=== PATIENT | female | born 1970 | race Caucasian/White ===

== ENCOUNTER 2017-03-12 15:45 | Inpatient (IN) | payer OTHER ==
[~2017-03-12] VITALS: Ht 167.6 cm; Wt 87.1 kg
[~2017-03-12 15:45] MED LIST: ADVIL100 M2 PO; AMITRIPTYLINE H25 M2 PO; ASPIRIN325; DESIPRAMINE 2525 M1 PO; ELIQUIS5 MG PO; KEFLEX500 MG PO; LORTAB 5-325 M1 EACH PO; NORCO 5-325 TA1 EACH PO; NORVASC5 MG PO; OSCIMIN0.125 MG PO; PAROXETINE ER25 MG PO; PAROXETINE HCL25 MG PO; PAXIL CR25 MG; PAXIL10 MG PO; PERCOCET 10-321 EACH PO; PERCOCET 5-3251 EACH PO; PERCOCET 7.5-31 EACH PO; PHENERGAN 25 MG25 M1 PO; ZOFRAN 4 MG ORAL4 M1 DIS; ZOFRAN ODT4 MG DISSOLVE
[2017-03-12 15:47] VITALS: BP 100/78
[2017-03-12 16:25] LABS: ABSOLUTE NEUTROPHILS 1.9 thou/uL (1.4-8.2); BASOPHILS 0.6 % (0.0-2.0); EOSINOPHILS 1.9 % (0.0-3.0); HEMATOCRIT 31.1 % (37.0-47.0); HEMOGLOBIN 9.6 gm/dL (12.0-15.0); LYMPHOCYTES 25.9 % (24.0-44.0); MCH 23.3 pg (26.0-34.0); MCHC 30.8 g/dL (28.0-37.0); MCV 75.8 fL (80.0-100.0); MONOCYTES 10.3 % (1.0-8.0); PLATELET COUNT 243 thou/uL (150-400); POLYS 61.3 % (36.0-66.0); RDW 18.6 % (10.5-14.5); WBC 3.1 thou/uL (4.0-11.0)
[2017-03-12 16:29] LABS: MANUAL DIFF NO
[2017-03-12 16:34] LABS: CREATININE 0.7 mg/dL (0.6-1.0)
[2017-03-12 16:40] LABS: ALBUMIN 3.6 g/dL (3.4-5.0); DIRECT BILIRUBIN 0.2 mg/dL (<0.1-0.3); TOTAL BILIRUBIN 0.6 mg/dL (<0.1-1.0); TOTAL PROTEIN 7.5 g/dL (6.4-8.2)
[2017-03-12 16:41] LABS: POTASSIUM 2.9 mmol/L (3.5-5.1)
[2017-03-12 17:37] LABS: URINE BILIRUBIN NEGATIVE (Negative); URINE BLOOD NEGATIVE (Negative); URINE COLOR YELLOW; URINE GLUCOSE-RANDOM* NEGATIVE (Negative); URINE KETONES NEGATIVE (Negative); URINE NITRITE NEGATIVE (Negative); URINE PROTEIN (DIPSTICK) NEGATIVE (Negative); URINE SPECIFIC GRAVITY <= 1.005 (1.003-1.035); URINE UROBILINOGEN 0.2 E.U./dl (0.2-1.0)
[2017-03-12 17:43] LABS: CASTS None Seen /LPF (None Seen); CRYSTALS None Seen /LPF (None Seen); SQUAMOUS 4-10 Moderate /LPF (0-3); URINE RBC None Seen /HPF (0-2); URINE WBC 6-15 Few /HPF (0-5)
[2017-03-12 19:49] VITALS: BP 144/85
[2017-03-12 20:30] VITALS: BP 146/79
[2017-03-13 04:00] VITALS: BP 129/82
[2017-03-13 06:27] LABS: HEMATOCRIT 25.2 % (37.0-47.0); HEMOGLOBIN 7.8 gm/dL (12.0-15.0); MCH 23.7 pg (26.0-34.0); MCHC 30.9 g/dL (28.0-37.0); MCV 76.8 fL (80.0-100.0); RBC 3.29 mil/uL (4.20-5.00); RDW 18.8 % (10.5-14.5); WBC 3.1 thou/uL (4.0-11.0)
[2017-03-13 06:46] LABS: ALBUMIN 2.7 g/dL (3.4-5.0); CALCIUM 7.9 mg/dL (8.5-10.1); CREATININE 0.6 mg/dL (0.6-1.0); TOTAL BILIRUBIN 0.4 mg/dL (<0.1-1.0); TOTAL PROTEIN 5.7 g/dL (6.4-8.2)
[2017-03-13 06:49] LABS: POTASSIUM 2.9 mmol/L (3.5-5.1)
[2017-03-13 07:20] VITALS: BP 116/78
[2017-03-13 15:20] VITALS: BP 125/81
[2017-03-13 20:00] VITALS: BP 115/69
[2017-03-14 04:00] VITALS: BP 116/72
[2017-03-14 07:28] VITALS: BP 103/64
[2017-03-14 15:16] LABS: ABSOLUTE NEUTROPHILS 1.6 thou/uL (1.4-8.2); BASOPHILS 0.8 % (0.0-2.0); EOSINOPHILS 6.1 % (0.0-3.0); HEMATOCRIT 30.3 % (37.0-47.0); HEMOGLOBIN 9.3 gm/dL (12.0-15.0); LYMPHOCYTES 30.7 % (24.0-44.0); MCH 23.4 pg (26.0-34.0); MCHC 30.7 g/dL (28.0-37.0); MCV 76.3 fL (80.0-100.0); PLATELET COUNT 207 thou/uL (150-400); POLYS 52.4 % (36.0-66.0); RBC 3.98 mil/uL (4.20-5.00); RDW 19.3 % (10.5-14.5)
[2017-03-14 15:19] LABS: MANUAL DIFF NO
[2017-03-14 15:31] LABS: CALCIUM 8.5 mg/dL (8.5-10.1); CREATININE 0.7 mg/dL (0.6-1.0); POTASSIUM 3.8 mmol/L (3.5-5.1)
[2017-03-14 16:52] VITALS: BP 118/75
[2017-03-14 19:04] VITALS: BP 110/64
[2017-03-15 03:28] VITALS: BP 116/74
[2017-03-15 06:14] LABS: ABSOLUTE NEUTROPHILS 1.4 thou/uL (1.4-8.2); EOSINOPHILS 7.5 % (0.0-3.0); HEMATOCRIT 28.7 % (37.0-47.0); HEMOGLOBIN 8.7 gm/dL (12.0-15.0); LYMPHOCYTES 35.6 % (24.0-44.0); MCH 23.5 pg (26.0-34.0); MCHC 30.5 g/dL (28.0-37.0); MCV 77.2 fL (80.0-100.0); MONOCYTES 9.5 % (1.0-8.0); PLATELET COUNT 213 thou/uL (150-400); POLYS 46.4 % (36.0-66.0); RBC 3.72 mil/uL (4.20-5.00); RDW 18.3 % (10.5-14.5)
[2017-03-15 06:17] LABS: MANUAL DIFF NO
[2017-03-15 06:22] LABS: CALCIUM 8.2 mg/dL (8.5-10.1); CREATININE 0.7 mg/dL (0.6-1.0); POTASSIUM 3.8 mmol/L (3.5-5.1)
[2017-03-15 07:19] VITALS: BP 101/63
[2017-03-15 13:17] VITALS: BP 101/63
== END 2017-03-15 14:19 | disposition home or self-care (01) | DRG 689 ==
LOC: ER 15:45 → 4E 18:55 → EROBS 18:55 → 4E 20:19
PROVIDERS: Family Medicine; Nurse Practitioner
DX: N39.0 Urinary tract infection, site not specified (principal); E43 Unspecified severe protein-calorie malnutrition; R19.7 Diarrhea, unspecified; R10.9 Unspecified abdominal pain; Z68.31 Body mass index [BMI] 31.0-31.9, adult; E87.6 Hypokalemia; F41.9 Anxiety disorder, unspecified; F32.9 Major depressive disorder, single episode, unspecified; Z90.49 Acquired absence of other specified parts of digestive tract; Z86.711 Personal history of pulmonary embolism; Z95.828 Presence of other vascular implants and grafts; Z90.3 Acquired absence of stomach [part of]; Z88.8 Allergy status to other drugs, medicaments and biological substances; Z88.6 Allergy status to analgesic agent; Z88.1 Allergy status to other antibiotic agents; Z91.012 Allergy to eggs; Z82.49 Family history of ischemic heart disease and other diseases of the circulatory system; Z83.3 Family history of diabetes mellitus; Z79.899 Other long term (current) drug therapy
CPT/HCPCS: 10183

== ENCOUNTER 2018-02-09 18:55 | Emergency (ER) | payer OTHER ==
[~2018-02-09] VITALS: Ht 167.6 cm; Wt 87.1 kg
[2018-02-09 19:23] LABS: POC CA IONIZED 4.7 mg/dL (4.5-5.3); POC CREATININE 0.7 mg/dL (0.6-1.3); POC HEMOGLOBIN 14.3 g/dL (12.0-15.0); POC POTASSIUM 3.3 mmol/L (3.5-5.1)
[2018-02-09 19:27] LABS: HEMATOCRIT 42.1 % (37.0-47.0); HEMOGLOBIN 14.2 gm/dL (12.0-15.0); MCH 31.3 pg (26.0-34.0); MCHC 33.6 g/dL (28.0-37.0); MCV 93.1 fL (80.0-100.0); RBC 4.53 mil/uL (4.20-5.00); RDW 14.9 % (10.5-14.5)
[2018-02-09 19:35] LABS: POTASSIUM 3.3 mmol/L (3.5-5.1)
[2018-02-09 19:39] LABS: APTT 31.2 Seconds (24.5-32.8); PROTIME 10.6 Seconds (9.3-11.4)
[2018-02-09 19:41] LABS: ALBUMIN 3.4 g/dL (3.4-5.0); DIRECT BILIRUBIN 0.1 mg/dL (<0.1-0.3); TOTAL BILIRUBIN 0.4 mg/dL (<0.1-1.0); TOTAL PROTEIN 7.3 g/dL (6.4-8.2)
[2018-02-09] MEDS ORDERED: KEFLEX500 M1 PO (20:46)
[2018-02-09] MEDS ORDERED: PERCOCET 5-3251 EACH PO (20:46)
[2018-02-09 21:18] VITALS: BP 189/78
[2018-02-10] MEDS ORDERED: ZOFRAN ODT4 MG PO (16:59)
[2018-02-10] MEDS ORDERED: OXYCONTIN10 M1 PO (16:59)
== END 2018-02-09 21:21 | disposition home or self-care (01) ==
LOC: ER 18:55
PROVIDERS: Emergency Medicine
DX: S30.851A Superficial foreign body of abdominal wall, initial encounter (principal); Z88.5 Allergy status to narcotic agent; Z88.8 Allergy status to other drugs, medicaments and biological substances; Z88.1 Allergy status to other antibiotic agents; Z91.012 Allergy to eggs; W11.XXXA Fall on and from ladder, initial encounter; Y93.89 Activity, other specified; Y92.89 Other specified places as the place of occurrence of the external cause; Y99.8 Other external cause status

== ENCOUNTER 2018-02-10 12:29 | Emergency (ER) | payer OTHER ==
[~2018-02-10] VITALS: Ht 167.6 cm; Wt 87.1 kg
[~2018-02-10 12:29] MED LIST changes: +KEFLEX500 M1 PO
[2018-02-10 13:28] LABS: ABSOLUTE NEUTROPHILS 4.4 thou/uL (1.4-8.2); BASOPHILS 0.2 % (0.0-2.0); HEMOGLOBIN 14.6 gm/dL (12.0-15.0); LYMPHOCYTES 18.3 % (24.0-44.0); MCH 32.2 pg (26.0-34.0); MCHC 34.9 g/dL (28.0-37.0); MCV 92.2 fL (80.0-100.0); MONOCYTES 8.2 % (1.0-8.0); PLATELET COUNT 240 thou/uL (150-400); POLYS 72.3 % (36.0-66.0); RBC 4.55 mil/uL (4.20-5.00); RDW 15.3 % (10.5-14.5)
[2018-02-10 13:45] LABS: CALCIUM 9.5 mg/dL (8.5-10.1); POTASSIUM 3.7 mmol/L (3.5-5.1)
[2018-02-10 13:53] LABS: ALBUMIN 3.7 g/dL (3.4-5.0); TOTAL BILIRUBIN 0.4 mg/dL (<0.1-1.0)
[2018-02-10 14:10] LABS: URINE BILIRUBIN NEGATIVE (Negative); URINE BLOOD 1+ (Negative); URINE CLARITY CLEAR; URINE COLOR YELLOW; URINE GLUCOSE-RANDOM* NEGATIVE (Negative); URINE KETONES NEGATIVE (Negative); URINE LEUKOCYTES-REFLEX NEGATIVE (Negative); URINE NITRITE-REFLEX NEGATIVE (Negative); URINE PROTEIN (DIPSTICK) NEGATIVE (Negative); URINE UROBILINOGEN 0.2 E.U./dl (0.2-1.0)
[2018-02-10 14:32] LABS: BACTERIA-REFLEX 1-9 Few /HPF (None Seen); CASTS None Seen /LPF (None Seen); CRYSTALS None Seen /LPF (None Seen); MUCUS 0-3 Light strn/LPF (None Seen); SQUAMOUS 0-3 Few /LPF (0-3); URINE RBC 3-10 Few /HPF (0-2); URINE WBC-REFLEX 0-5 Rare /HPF (0-5)
[2018-02-10] MEDS ORDERED: ZOFRAN ODT4 MG PO (16:59)
[2018-02-10] MEDS ORDERED: OXYCONTIN10 M1 PO (16:59)
[2018-02-10 17:54] VITALS: BP 135/88
== END 2018-02-10 17:55 | disposition home or self-care (01) ==
LOC: ER 12:29
PROVIDERS: Emergency Medicine
DX: S31.132A Puncture wound of abdominal wall without foreign body, epigastric region without penetration into peritoneal cavity, initial encounter (principal); D68.51 Activated protein C resistance; Z90.49 Acquired absence of other specified parts of digestive tract; Z88.1 Allergy status to other antibiotic agents; Z88.5 Allergy status to narcotic agent; Z88.8 Allergy status to other drugs, medicaments and biological substances; Z91.012 Allergy to eggs; Z98.84 Bariatric surgery status; Z86.711 Personal history of pulmonary embolism; W17.89XA Other fall from one level to another, initial encounter; Y93.89 Activity, other specified; Y92.89 Other specified places as the place of occurrence of the external cause; Y99.8 Other external cause status

== ENCOUNTER 2018-03-04 13:19 | Inpatient (IN) | payer OTHER ==
[~2018-03-04] VITALS: Ht 167.6 cm; Wt 96.5 kg
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
--- NOTE | ~2018-03-04 | PATH ---
[facility] [address] [place] [address] PATHOLOGY RPT PROCEDURE Name: YING ROSALES Room #: 421-P [facility] IN M.R.#: [id number] Admission: 03/04/18 Date of : 72 Discharge: 03/10/18 Report #: [id number] Path Case #: [id number] [facility] Accession Number: [id number] . 01 Material submitted: . FOREIGN BODY . 01 Clinical history: . Abdominal wound traumatic . 02 Diagnosis: Foreign body, abdominal wound traumatic, removal (gross examination only): - 4.7 cm wooden material. . (IUV:mml; 03/10/18) QLM/03/10/2018 . 02 Electronically signed: . Nelli Oliva MD, Pathologist NPI- [id number] . 01 Gross description: . Received in formalin labeled "Ying Rosales, foreign body," and additionally labeled on the requisition as, "abdominal wound traumatic," is an elongate segment of dark brown, wooden material measuring 4.7 cm in length by 0.4 cm in diameter. A gross photograph is taken, and tissue is not submitted. ([facility]; 03/09/2018) XDC/XDC . 02 Pathologist provided ICD-10: S31.149A . 02 CPT . 328426 Specimen Comment: A courtesy copy of this report has been sent to Specimen Comment: [phone], , . Specimen Comment: Report sent to ,DR JI / DR SHUKLA Specimen Comment: A duplicate report has been generated due to demographic updates. Performed at: [address], [place] [id number] MD Orlando Rashid MD Phone: [phone] Performed at: [address] [id number] MD Nelli Oliva MD Phone: [phone]
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
--- NOTE | ~2018-03-04 | O ---
[facility] [place] [address] OPERATIVE REPORT Name: YING PARISI Room #: 421-P [facility] IN M.R.#: [id number] Admission: 03/04/18 Attend Phys: Bekah Rowland Discharge: 03/10/18 Date of : 72 Report #: [id number] THIS REPORT FOR: //name// CC: Bekah Cervantes DATE OF SERVICE: 03/06/2018 SURGEON: Beto Hurtado MD ENTRY LEVEL SALES ASSOCIATE: None. PREOPERATIVE DIAGNOSES: 1. Traumatic abdominal wound containing foreign body. 2. Factor V Leiden deficiency. 3. History of multiple abdominal operations, including open gastric bypass and numerous ventral hernia repairs. 4. Depression/anxiety. POSTOPERATIVE DIAGNOSES: 1. Traumatic abdominal wound containing foreign body. 2. Factor V Leiden deficiency. 3. History of multiple abdominal operations, including open gastric bypass and numerous ventral hernia repairs. 4. Depression/anxiety. PROCEDURE: Traumatic abdominal wound exploration with removal of foreign body and debridement. ANESTHESIA: General endotracheal anesthesia and local anesthetic. ESTIMATED BLOOD LOSS: 5 mL. SPECIMEN: Foreign body (twig). COMPLICATIONS: None appreciated. INDICATIONS FOR PROCEDURE: This is a 47-year-old female patient who was seen in the [facility] after having fallen from a 5-foot ladder a couple of weeks ago. At that time, the patient was impaled with a twig. She was seen in the Emergency Room and the foreign body was removed. Since that time, the patient has developed worsening abdominal pain for which she saw her primary care physician. She was set up to receive IV antibiotics through a PICC line. Despite antibiotics, the patient had continued pain and represented to the [facility] on 03/04/2018. A portion of the foreign body was removed in the Emergency Room and the patient was sent for CT scan. This revealed a [facility] [address] [place] [address] OPERATIVE REPORT Name: YING PARISI Room #: 421-P [facility] IN M.R.#: [id number] Admission: 03/04/18 Attend Phys: Bekah Rowland Discharge: 03/10/18 Date of : 72 Report #: [id number] probable foreign body within the subcutaneous space with no appreciable evidence into the abdominal cavity. The patient does have multiple medical issues including factor V Leiden deficiency, from which she has had multiple pulmonary emboli and has an IVC filter in place. Her operation has been delayed a couple of days due to her having taken Eliquis. The patient also has a history of an open gastric bypass operation and at least 10 operations involving mesh placement and removal, as well as abdominal wall abscess drainage procedures. OPERATIVE FINDINGS: The foreign body was immediately appreciable, extending to the patient's left. The wound itself was initially 5.5 cm long. The foreign body extended beyond the lateral most aspect of the wound. After removing the foreign body, the tract was opened and a small cavity was encountered; however, there was no pus present. Despite this, cultures were taken. Other portions of the twig were identified within the tract and these were debrided/removed. The tract itself was also excised. There was no evidence for entrance into the abdominal cavity and her previously placed mesh was not palpable. The tissue appeared otherwise viable. DESCRIPTION OF PROCEDURE IN DETAIL: After the risks, benefits, and expectations of the operation were discussed in detail with the patient, informed consent was obtained. The patient was identified in the preoperative holding area. She has been receiving scheduled IV antibiotics. She was taken to the operating room and she was placed in the supine position. SCDs were placed on the patient's bilateral lower extremities and pneumatic compression was initiated. The patient was then given IV sedation and general anesthesia was administered, orotracheally. The patient's abdomen was prepped and draped in the standard sterile fashion. A timeout was performed to identify the correct patient and procedure. The twig was immediately palpable at the lateral aspect of the wound. The twig was carefully removed and sent for specimen. A hemostat was then placed within the tract and the tract was opened including the subcutaneous tissue and skin sharply after local anesthetic was infiltrated into the skin and subcutaneous tissue. The tract was then debrided and all debris from the foreign body was removed. The tract was excised with electrocautery. Bleeding points were made hemostatic with electrocautery. Digital palpation revealed a small cavity, but no significant fluid or pus. Cultures were taken to be sent for aerobes, anaerobes and fungus. The abdominal wall was intact and mesh was not palpable. The wound was then copiously irrigated and suctioned and return of all drainage ran clear. After ensuring final hemostasis, the wound was packed with 1 inch iodoform gauze. The final wound length was 9 cm transversely. At the conclusion of the operation, the sponge, needle, and instrument counts were correct. The wound was dressed with 4 x 4s, an ABD pad, and tape. The patient [facility] [address] [place] [address] OPERATIVE REPORT Name: YING PARISI Room #: 421-P [facility] IN M.R.#: [id number] Admission: 03/04/18 Attend Phys: Bekah Doyle Janett Discharge: 03/10/18 Date of : 72 Report #: [id number] tolerated the procedure well. She was awakened, extubated, and taken to recovery room in stable condition with no apparent intraoperative complications. <ELECTRONICALLY SIGNED> By: Beto Hurtado MD, FACS 03/13/18 0946 1005 1058 Beto Hurtado MD, FACS /nt
[~2018-03-04 13:19] MED LIST changes: +OXYCONTIN10 M1 PO; +ZOFRAN ODT4 MG PO
[2018-03-04 13:22] VITALS: BP 130/80
[2018-03-04] MEDS ORDERED: ROCEPHIN 11 GM/1001 IV (13:30)
[2018-03-04 15:02] LABS: ABSOLUTE NEUTROPHILS 3.5 thou/uL (1.4-8.2); BASOPHILS 1.1 % (0.0-2.0); EOSINOPHILS 2.4 % (0.0-3.0); HEMATOCRIT 37.1 % (37.0-47.0); HEMOGLOBIN 12.9 gm/dL (12.0-15.0); LYMPHOCYTES 26.7 % (24.0-44.0); MCH 32.3 pg (26.0-34.0); MCHC 34.7 g/dL (28.0-37.0); MCV 93.2 fL (80.0-100.0); MONOCYTES 10.2 % (1.0-8.0); PLATELET COUNT 264 thou/uL (150-400); POLYS 59.6 % (36.0-66.0); RBC 3.98 mil/uL (4.20-5.00); RDW 14.5 % (10.5-14.5); WBC 5.8 thou/uL (4.0-11.0)
[2018-03-04 15:09] LABS: CREATININE 0.7 mg/dL (0.6-1.0); POTASSIUM 3.9 mmol/L (3.5-5.1)
[2018-03-04 18:14] VITALS: BP 140/94
[2018-03-04 19:50] VITALS: BP 120/72
[2018-03-04 20:23] VITALS: BP 127/89
[2018-03-05 03:18] VITALS: BP 111/65
[2018-03-05 06:05] LABS: HEMATOCRIT 36.1 % (37.0-47.0); HEMOGLOBIN 12.3 gm/dL (12.0-15.0); MCH 32.2 pg (26.0-34.0); MCHC 34.1 g/dL (28.0-37.0); MCV 94.3 fL (80.0-100.0); RBC 3.83 mil/uL (4.20-5.00); RDW 14.9 % (10.5-14.5); WBC 4.6 thou/uL (4.0-11.0)
[2018-03-05 07:26] VITALS: BP 103/59
[2018-03-05 16:16] VITALS: BP 110/66
[2018-03-05 20:00] VITALS: BP 131/92
[2018-03-06 04:30] VITALS: BP 113/75
[2018-03-06 07:16] VITALS: BP 108/70
[2018-03-06 11:06] VITALS: BP 114/74
[2018-03-06 19:44] VITALS: BP 104/69
[2018-03-07 05:08] VITALS: BP 134/93
[2018-03-07 08:28] VITALS: BP 125/81
[2018-03-07 17:00] VITALS: BP 111/71
[2018-03-08 02:50] VITALS: BP 120/89
[2018-03-08 07:55] VITALS: BP 96/81
[2018-03-08 16:38] VITALS: BP 91/64
[2018-03-08 20:00] VITALS: BP 106/63
[2018-03-09 04:40] VITALS: BP 97/55
[2018-03-09 07:30] VITALS: BP 98/61
[2018-03-09 16:35] VITALS: BP 97/62
[2018-03-09 19:45] VITALS: BP 104/68
[2018-03-10 07:33] VITALS: BP 106/69
[2018-03-10 10:38] VITALS: BP 106/69
[2018-03-10] MEDS ORDERED: VANCO1GM IV (14:35)
[2018-03-10] MEDS ORDERED: FENTANYL1 EAC1 TRANSDERM (14:36)
[2018-03-10] MEDS ORDERED: OXYCODONE HCL5 M1 PO (14:37)
[2018-03-10 15:09] VITALS: BP 106/69
[2018-03-10 15:30] VITALS: BP 106/69
[2018-03-11] MEDS ORDERED: ZOFRAN4 MG PO (17:54)
== END 2018-03-10 15:28 | disposition home health service (06) | DRG 902 ==
LOC: ER 13:19 → 4E 15:48 → EROBS 15:48 → 4E 19:46
PROVIDERS: Nurse Practitioner Family
PROC: 0JB80ZZ Excision of Abdomen Subcutaneous Tissue and Fascia, Open Approach (ICD-10-PCS; 2018-03-04)
PROC: 0JC80ZZ Extirpation of Matter from Abdomen Subcutaneous Tissue and Fascia, Open Approach (ICD-10-PCS; principal; 2018-03-06)
PROC: B54MZZA Ultrasonography of Right Upper Extremity Veins, Guidance (ICD-10-PCS; 2018-03-10)
PROC: 02HV33Z Insertion of Infusion Device into Superior Vena Cava, Percutaneous Approach (ICD-10-PCS; 2018-03-10)
DX: S31.149A Puncture wound of abdominal wall with foreign body, unspecified quadrant without penetration into peritoneal cavity, initial encounter (principal); L02.211 Cutaneous abscess of abdominal wall; D68.51 Activated protein C resistance; L03.311 Cellulitis of abdominal wall; F11.20 Opioid dependence, uncomplicated; F41.9 Anxiety disorder, unspecified; F32.9 Major depressive disorder, single episode, unspecified; W11.XXXA Fall on and from ladder, initial encounter; Y93.89 Activity, other specified; Y99.8 Other external cause status; Y92.89 Other specified places as the place of occurrence of the external cause; Z98.891 History of uterine scar from previous surgery; Z90.49 Acquired absence of other specified parts of digestive tract; Z98.84 Bariatric surgery status; Z79.01 Long term (current) use of anticoagulants; Z86.711 Personal history of pulmonary embolism; Z79.899 Other long term (current) drug therapy; Z88.5 Allergy status to narcotic agent; Z88.8 Allergy status to other drugs, medicaments and biological substances; Z88.1 Allergy status to other antibiotic agents; Z91.012 Allergy to eggs; Z82.49 Family history of ischemic heart disease and other diseases of the circulatory system; Z83.3 Family history of diabetes mellitus; Z68.34 Body mass index [BMI] 34.0-34.9, adult
CPT/HCPCS: 10084; 27000; 50010; 50101; 50386; 50417; 62110; 62900; 70005

== ENCOUNTER 2018-03-11 16:01 | Emergency (ER) | payer OTHER ==
[~2018-03-11] VITALS: Ht 167.6 cm; Wt 89.8 kg
[~2018-03-11 16:01] MED LIST changes: +FENTANYL1 EAC1 TRANSDERM; +OXYCODONE HCL5 M1 PO; +ROCEPHIN 11 GM/1001 IV; +VANCO1GM IV
[2018-03-11 16:02] VITALS: BP 141/100
[2018-03-11 17:10] LABS: HEMATOCRIT 38.4 % (37.0-47.0); HEMOGLOBIN 13.1 gm/dL (12.0-15.0); MCH 31.4 pg (26.0-34.0); MCHC 34.2 g/dL (28.0-37.0); MCV 91.6 fL (80.0-100.0); PLATELET COUNT 257 thou/uL (150-400); RBC 4.19 mil/uL (4.20-5.00); RDW 14.3 % (10.5-14.5); WBC 4.8 thou/uL (4.0-11.0)
[2018-03-11 17:12] VITALS: BP 131/87
[2018-03-11 17:17] LABS: CALCIUM 8.8 mg/dL (8.5-10.1); POTASSIUM 4.4 mmol/L (3.5-5.1)
[2018-03-11 17:38] LABS: URINE BILIRUBIN NEGATIVE (Negative); URINE BLOOD 1+ (Negative); URINE CLARITY CLEAR; URINE COLOR YELLOW; URINE GLUCOSE-RANDOM* NEGATIVE (Negative); URINE KETONES NEGATIVE (Negative); URINE LEUKOCYTES-REFLEX NEGATIVE (Negative); URINE NITRITE-REFLEX NEGATIVE (Negative); URINE PROTEIN (DIPSTICK) NEGATIVE (Negative); URINE SPECIFIC GRAVITY 1.025 (1.005-1.035); URINE UROBILINOGEN 0.2 E.U./dl (0.2-1.0)
[2018-03-11 17:41] LABS: ABSOLUTE NEUTROPHILS 2.5 thou/uL (1.4-8.2)
[2018-03-11 17:43] LABS: ANISOCYTOSIS 1+; POLYCHROMASIA OCCASIONAL
[2018-03-11 17:52] LABS: BACTERIA-REFLEX 1-9 Few /HPF (None Seen); CASTS None Seen /LPF (None Seen); CRYSTALS None Seen /LPF (None Seen); SQUAMOUS 4-10 Moderate /LPF (0-3); URINE RBC 0-2 Rare /HPF (0-2); URINE WBC-REFLEX None Seen /HPF (0-5)
[2018-03-11] MEDS ORDERED: ZOFRAN4 MG PO (17:54)
[2018-03-11 17:58] VITALS: BP 137/90
== END 2018-03-11 18:02 | disposition home or self-care (01) ==
LOC: ER 16:01 → EROBS 16:56 → ER 16:56
PROVIDERS: Student in an Organized Health Care Education/Training Program
DX: R10.9 Unspecified abdominal pain (principal); R11.2 Nausea with vomiting, unspecified; Z98.84 Bariatric surgery status; Z86.711 Personal history of pulmonary embolism; Z90.49 Acquired absence of other specified parts of digestive tract; Z88.1 Allergy status to other antibiotic agents; Z88.5 Allergy status to narcotic agent; Z88.8 Allergy status to other drugs, medicaments and biological substances; Z91.012 Allergy to eggs; Z98.890 Other specified postprocedural states

== ENCOUNTER 2018-03-22 16:06 | Emergency (ER) | payer OTHER ==
[~2018-03-22] VITALS: Ht 167.6 cm; Wt 89.8 kg
[~2018-03-22 16:06] MED LIST changes: +ZOFRAN4 MG PO
[2018-03-22 16:29] VITALS: BP 133/82
== END 2018-03-22 17:11 | disposition home or self-care (01) ==
LOC: ER 16:06
DX: R10.33 Periumbilical pain (principal); F32.9 Major depressive disorder, single episode, unspecified; F41.9 Anxiety disorder, unspecified; Z88.5 Allergy status to narcotic agent; Z91.012 Allergy to eggs; Z88.1 Allergy status to other antibiotic agents; Z88.6 Allergy status to analgesic agent; Z88.8 Allergy status to other drugs, medicaments and biological substances; Z98.890 Other specified postprocedural states; Z90.49 Acquired absence of other specified parts of digestive tract

== ENCOUNTER → 2018-03-25 | Outpatient (CLI) | payer OTHER ==
[~2018-03-25] MED LIST changes: +CEFDINIR300 MG PO
[2018-03-25 11:59] LABS: ABSOLUTE NEUTROPHILS 2.8 thou/uL (1.4-8.2); BASOPHILS 0.6 % (0.0-2.0); EOSINOPHILS 4.2 % (0.0-3.0); HEMATOCRIT 35.9 % (37.0-47.0); HEMOGLOBIN 11.9 gm/dL (12.0-15.0); LYMPHOCYTES 26.7 % (24.0-44.0); MCH 30.7 pg (26.0-34.0); MCHC 33.1 g/dL (28.0-37.0); MCV 92.7 fL (80.0-100.0); MONOCYTES 9.9 % (1.0-8.0); PLATELET COUNT 228 thou/uL (150-400); POLYS 58.6 % (36.0-66.0); RBC 3.87 mil/uL (4.20-5.00); RDW 14.3 % (10.5-14.5); WBC 4.8 thou/uL (4.0-11.0)
[2018-03-25 12:11] LABS: ALBUMIN 3.5 g/dL (3.4-5.0); CALCIUM 8.6 mg/dL (8.5-10.1); CREATININE 0.8 mg/dL (0.6-1.0); POTASSIUM 4.2 mmol/L (3.5-5.1); TOTAL BILIRUBIN 0.5 mg/dL (<0.1-1.0)
== END ==
LOC: HYPER 06:48 → ULTRA 06:48 → HYPER 10:12
PROVIDERS: Emergency Medicine Emergency Medical Services
DX: T81.31XA Disruption of external operation (surgical) wound, not elsewhere classified, initial encounter (principal); M19.90 Unspecified osteoarthritis, unspecified site; F32.9 Major depressive disorder, single episode, unspecified; F41.9 Anxiety disorder, unspecified; Z79.01 Long term (current) use of anticoagulants; Z86.711 Personal history of pulmonary embolism; Y92.89 Other specified places as the place of occurrence of the external cause; Y83.8 Other surgical procedures as the cause of abnormal reaction of the patient, or of later complication, without mention of misadventure at the time of the procedure

== ENCOUNTER 2018-03-26 08:38 | Inpatient (IN) | payer OTHER ==
[~2018-03-26] VITALS: Ht 167.6 cm; Wt 101.6 kg
--- NOTE | ~2018-03-26 | O ---
[facility] [place] [address] OPERATIVE REPORT Name: YING PARISI Room #: 423-1 [facility] IN M.R.#: [id number] Admission: 03/26/18 Attend Phys: Gilbert Acosta MD Discharge: 03/28/18 Date of : 72 Report #: [id number] THIS REPORT FOR: //name// CC: Jaci Aileenreji Gilbert Acosta DATE OF SERVICE: 03/27/2018 SURGEON: Beto Hurtado MD AGING BOX HAND: None. PREOPERATIVE DIAGNOSES: Abdominal wound with suspected foreign body, status post fall into a brush pile with an impaled twig. POSTOPERATIVE DIAGNOSES: Abdominal wound with foreign body, status post fall into a brush pile with an impaled twig. PROCEDURE: Wound exploration, excisional debridement including skin and subcutaneous tissue (8 x 2 cm, 16 square cm) and ultrasonic debridement of traumatic abdominal wound, removal of foreign body. ANESTHESIA: General endotracheal anesthesia and local anesthetic. ESTIMATED BLOOD LOSS: 10 mL. SPECIMEN: Foreign body. COMPLICATIONS: None appreciated. INDICATIONS FOR PROCEDURE: This is a 47-year-old female patient known to me from a previous wound exploration with removal of foreign body from the wound. The patient was admitted to [facility] with complaints of a new area of drainage and erythema, which she felt was the entrance site of the foreign body from several weeks ago. The wound was not present in that area at her prior wound exploration. Ultrasound showed a linear foreign body in the subcutaneous tissue measuring 1.6 cm in length. She has had increased pain as well as fever and chills. The patient presents now for wound exploration with debridement. OPERATIVE FINDINGS: The foreign body in question was able to be identified. No other foreign body was present upon opening the wound further. I ended up connecting the opening with the previous wound exploration site in the left abdomen. The final size of the defect was 8 cm wide x 2 cm long. The abscess cavity tissue was necrotic and excised as was a thin strip of skin. The foreign body did not extend to muscle or previously placed mesh. At the conclusion of [facility] [address] [place] [address] OPERATIVE REPORT Name: YING PARISI Room #: 423-1 [facility] IN M.R.#: [id number] Admission: 03/26/18 Attend Phys: Gilbert Acosta MD Discharge: 03/28/18 Date of : 72 Report #: [id number] the operation, the sponge, needle and instrument counts were correct. DESCRIPTION OF PROCEDURE IN DETAIL: After the risks, benefits and expectations of the operation were discussed in detail with the patient, informed consent was obtained. The patient was identified in the preoperative holding area. She has been receiving scheduled IV antibiotics. She was taken to the operating room and she was placed in the supine position. SCDs were placed on the patient's bilateral lower extremities and pneumatic compression was initiated. The patient was then given IV sedation and she was intubated without incident. Her abdomen was prepped and draped in the standard sterile fashion. A time-out was performed to identify the correct patient and procedure. Local anesthetic was infiltrated into the skin and subcutaneous tissue in the right-sided abdominal wound. A sharp #15 blade scalpel was used to make a transverse incision. Dissection was carried down bluntly into an abscess cavity where cultures were taken to be sent for aerobes, anaerobes and fungus. Foreign body material was present in the deep portion of the wound. A hemostat was then used to remove the foreign body. Digital exam after removal of the foreign body revealed no other areas of induration or foreign body. The incision was extended across the midline to the left-sided transversely oriented wound. Necrotic skin and subcutaneous tissue were then excised. Bleeding points were made hemostatic with electrocautery. The Giv.to ultrasonic debridement device was then used to mechanically debride the entire wound surface area. Bleeding points were again made hemostatic. Local anesthetic was infiltrated into the subcutaneous tissue. The wound was then packed with wet to dry normal saline on Kerlix and then dressed with 4 x 4s, ABD pad and tape. The patient tolerated the procedure well. She was awakened, extubated, and taken to the recovery room in stable condition with no apparent intraoperative complications. <ELECTRONICALLY SIGNED> By: Beto Hurtado MD, FACS 03/31/18 1215 0858 1001 Beto Hurtado MD, FACS /nt
--- NOTE | ~2018-03-26 | PATH ---
[facility] [address] [place] [address] PATHOLOGY RPT PROCEDURE Name: YING ROSALES Room #: 423-1 DIS IN M.R.#: [id number] Admission: 03/26/18 Date of : 72 Discharge: 03/28/18 Report #: [id number] Path Case #: [id number] [facility] Accession Number: [id number] . 01 Material submitted: . FOREIGN BODY FROM ABDOMEN WOUND . 01 Clinical history: . Abdominal wall wound . 02 Diagnosis: Foreign body, abdomen wound, removal: - 2.3 cm wooden material, consistent with foreign body. (Gross exam only) (IUV:provisioning analyst; 03/30/2018) MBR/03/30/2018 . 02 Electronically signed: . Nelli Oliva MD, Pathologist NPI- [id number] . 01 Gross description: . The specimen is received fresh, labeled "Ying Rosales, foreign body from abdomen wound" and consists of a brown stick of wood measuring 2.3 x 0.5 x 0.5 cm. A gross photo is taken. (SDY; 03/27/2018) SYU/SYU . 02 Pathologist provided ICD-10: Z18.33 . 02 CPT . 086742 Specimen Comment: A courtesy copy of this report has been sent to Specimen Comment: [phone], , . Specimen Comment: Report sent to ,DR SANTILLAN / DR BERTRAND Performed at: [address], [place], [place] [id number] MD Orlando Rashid MD Phone: [phone] Performed at: [address] [id number] MD Nelli Oliva MD Phone: [phone]
--- NOTE | ~2018-03-26 | HC ---
[facility] [place] [address] CONSULTATION Name: YING PARISI Room #: 423-1 ADM IN M.R.#: [id number] Admission: 03/26/18 Attend Phys: Gilbert Acosta MD Discharge: Date of : 72 Report #: [id number] THIS REPORT FOR: //name// CC: Jaci Acosta DATE OF SERVICE: 03/26/2018 CHIEF COMPLAINT: Abdominal wall abscess. HISTORY OF PRESENT ILLNESS: This is a 47-year-old female patient with whom I am familiar. She had a foreign body in her abdominal wall after falling off a ladder and landing on some branches. She underwent a surgical debridement and foreign body removal and has healed quite well. I saw her for a followup in the clinic yesterday. She was noted to have increasing erythema, induration, tenderness and some spontaneous drainage from an area to the right of the midline of her abdominal wall. We obtained an ultrasound, which demonstrated a linear foreign body in the subcutaneous tissue with surrounding inflammatory changes. I discussed the case with Dr. Hurtado. Due to the fact that she takes Eliquis it was felt that she needed to hold this for at least 48 hours. As she was not clinically ill appearing, we elected to allow her to go home and have arranged for her to be admitted to the hospital today then for planned surgical exploration and likely foreign body removal and drainage of an abscess tomorrow. The patient states that she is having some increasing amounts of pain and drainage since the last 24 hours past. She otherwise feels well without fever or chills. PAST MEDICAL HISTORY: Positive for factor V Leiden deficiency with multiple pulmonary emboli and required an IVC filter placement. She has had multiple abdominal operations with mesh placement. She has had previous , some history of depression, anxiety, previous appendectomy, ventral hernia repair. ALLERGIES: CODEINE, LEVAQUIN, EGGS, TRAMADOL, COMPAZINE, NUBAIN, TYLENOL. SOCIAL HISTORY: Negative for current alcohol or tobacco use. FAMILY HISTORY: Noncontributory. REVIEW OF SYSTEMS: CONSTITUTIONAL: The patient denies fever, chills or weight loss. NEUROLOGICAL: The patient denies focal weakness, numbness or tingling. EYES: The patient denies visual changes, redness or drainage. ENT: The patient denies earache, nasal drainage or sore throat. CARDIOVASCULAR: No chest pain, palpitations or diaphoresis. PULMONARY: The patient denies cough or shortness of breath. GASTROINTESTINAL: The patient denies nausea or vomiting. Does complain of [address] [address] CONSULTATION Name: YING PARISI Room #: 423-1 ADM IN M.R.#: [id number] Admission: 03/26/18 Attend Phys: Gilbert Acosta MD Discharge: Date of : 72 Report #: [id number] abdominal wall pain and drainage as well as redness. GENITOURINARY: The patient denies frequency or urgency of urination. Denies dysuria. ORTHOPEDIC: The patient denies pain or swelling of the extremities. Other systems are negative in a 14-point review of systems. PHYSICAL EXAMINATION: VITAL SIGNS: At this time include pulse 91, respiratory rate 18, blood pressure 122/74, temperature 98.2. GENERAL: This is a well-developed, well-nourished female patient who appears to be in minimal distress. HEENT: Head normocephalic. Nose and throat are clear. NECK: Supple. LUNGS: Clear. HEART: Regular rhythm. ABDOMEN: Soft. There is an area of induration and may be possible fluctuance, erythema to the right of the umbilicus. There is a small area of separation with some somewhat purulent appearing drainage. No obvious odor at this time. EXTREMITIES: There is no clubbing, cyanosis, or edema. NEUROLOGIC: The patient is alert, oriented, appropriate. Cranial nerves 2-12 intact. LABORATORY DATA: Include sodium 141, potassium is 3.6, chloride 105, CO2 of 27, BUN 11, creatinine 0.8, glucose 126. CLINICAL IMPRESSION: 1. Foreign body abdominal wall with surrounding abscess and cellulitis. 2. Factor V Leiden deficiency. 3. History of multiple previous abdominal surgeries. RECOMMENDATIONS: At this point in time, we have consulted Dr. Terell Meneses from Infectious Disease perspective and Dr. Hurtado. She is scheduled for surgery in the morning for exploration, incision and drainage and foreign body removal. The patient is agreeable to current plan of care. I appreciate being asked to see her in consultation. <ELECTRONICALLY SIGNED> By: Melquiades Uribe MD 03/27/18 0811 [id number] Melquiades Uribe MD /nt
[~2018-03-26 08:38] MED LIST changes: -CEFDINIR300 MG PO
[2018-03-26 09:20] VITALS: BP 129/89
[2018-03-26 12:26] LABS: URINE BILIRUBIN NEGATIVE (Negative); URINE BLOOD 2+ (Negative); URINE CLARITY CLEAR; URINE COLOR YELLOW; URINE GLUCOSE-RANDOM* NEGATIVE (Negative); URINE KETONES NEGATIVE (Negative); URINE LEUKOCYTES-REFLEX NEGATIVE (Negative); URINE NITRITE-REFLEX NEGATIVE (Negative); URINE PROTEIN (DIPSTICK) NEGATIVE (Negative); URINE SPECIFIC GRAVITY 1.025 (1.005-1.035); URINE UROBILINOGEN 0.2 E.U./dl (0.2-1.0)
[2018-03-26 12:42] LABS: BACTERIA-REFLEX 1-9 Few /HPF (None Seen); CASTS None Seen /LPF (None Seen); CRYSTALS None Seen /LPF (None Seen); MUCUS 0-3 Light strn/LPF (None Seen); SQUAMOUS 0-3 Few /LPF (0-3); URINE RBC 0-2 Rare /HPF (0-2); URINE WBC-REFLEX 0-5 Rare /HPF (0-5)
[2018-03-26 14:40] LABS: HEMATOCRIT 32.1 % (37.0-47.0); HEMOGLOBIN 11.1 gm/dL (12.0-15.0); MCHC 34.6 g/dL (28.0-37.0); MCV 92.5 fL (80.0-100.0); PLATELET COUNT 203 thou/uL (150-400); RBC 3.47 mil/uL (4.20-5.00); RDW 14.5 % (10.5-14.5); WBC 4.6 thou/uL (4.0-11.0)
[2018-03-26 14:55] LABS: CALCIUM 8.6 mg/dL (8.5-10.1); CREATININE 0.8 mg/dL (0.6-1.0); MAGNESIUM 2.1 mg/dL (1.8-2.4); POTASSIUM 3.6 mmol/L (3.5-5.1)
[2018-03-26 15:08] LABS: ABSOLUTE NEUTROPHILS 2.3 thou/uL (1.4-8.2)
[2018-03-26 16:00] VITALS: BP 122/74
[2018-03-26 19:50] VITALS: BP 122/91
[2018-03-27 04:15] VITALS: BP 141/91
[2018-03-27 05:48] LABS: HEMATOCRIT 30.8 % (37.0-47.0); HEMOGLOBIN 10.5 gm/dL (12.0-15.0); MCH 31.7 pg (26.0-34.0); MCHC 34.2 g/dL (28.0-37.0); MCV 92.7 fL (80.0-100.0); PLATELET COUNT 182 thou/uL (150-400); RBC 3.32 mil/uL (4.20-5.00); RDW 14.4 % (10.5-14.5); WBC 3.6 thou/uL (4.0-11.0)
[2018-03-27 06:12] LABS: CALCIUM 8.5 mg/dL (8.5-10.1); CREATININE 0.7 mg/dL (0.6-1.0); POTASSIUM 3.8 mmol/L (3.5-5.1)
[2018-03-27 06:37] LABS: ABSOLUTE NEUTROPHILS 1.5 thou/uL (1.4-8.2)
[2018-03-27 06:38] LABS: PLATELET ESTIMATE NORMAL
[2018-03-27 11:15] VITALS: BP 108/64
[2018-03-27 12:57] VITALS: BP 108/64
[2018-03-27 14:58] VITALS: BP 108/64
[2018-03-27 16:00] VITALS: BP 114/63
[2018-03-27 19:36] VITALS: BP 125/90
[2018-03-28 04:04] VITALS: BP 129/84
[2018-03-28 07:55] VITALS: BP 131/86
[2018-03-28] MEDS ORDERED: CEFDINIR300 MG PO (11:34)
[2018-03-28 13:31] VITALS: BP 108/64
== END 2018-03-28 16:53 | disposition home or self-care (01) | DRG 853 ==
LOC: 4E 08:38
PROVIDERS: Nurse Practitioner; Surgery
PROC: 05H533Z Insertion of Infusion Device into Right Subclavian Vein, Percutaneous Approach (ICD-10-PCS; principal; 2018-03-26)
PROC: 0JC80ZZ Extirpation of Matter from Abdomen Subcutaneous Tissue and Fascia, Open Approach (ICD-10-PCS; principal; 2018-03-26)
PROC: 0JB80ZZ Excision of Abdomen Subcutaneous Tissue and Fascia, Open Approach (ICD-10-PCS; 2018-03-27)
DX: A41.9 Sepsis, unspecified organism (principal); K65.8 Other peritonitis; L02.211 Cutaneous abscess of abdominal wall; D68.51 Activated protein C resistance; L03.311 Cellulitis of abdominal wall; F32.9 Major depressive disorder, single episode, unspecified; F41.9 Anxiety disorder, unspecified; G89.29 Other chronic pain; R10.9 Unspecified abdominal pain; M79.5 Residual foreign body in soft tissue; S30.851A Superficial foreign body of abdominal wall, initial encounter; Z95.828 Presence of other vascular implants and grafts; Z86.711 Personal history of pulmonary embolism; Z90.49 Acquired absence of other specified parts of digestive tract; Z88.8 Allergy status to other drugs, medicaments and biological substances; Z88.6 Allergy status to analgesic agent; Z91.012 Allergy to eggs; Z86.718 Personal history of other venous thrombosis and embolism; Z82.49 Family history of ischemic heart disease and other diseases of the circulatory system; Z88.1 Allergy status to other antibiotic agents; Z83.3 Family history of diabetes mellitus; Z98.84 Bariatric surgery status; Z93.1 Gastrostomy status; W45.8XXA Other foreign body or object entering through skin, initial encounter; Y93.89 Activity, other specified; Y92.89 Other specified places as the place of occurrence of the external cause; Y99.8 Other external cause status
CPT/HCPCS: 10783; 50010; 50101; 62110; 62900; 70005

== ENCOUNTER → 2018-04-02 | Outpatient (CLI) | payer OTHER ==
[~2018-04-02] MED LIST changes: +CEFDINIR300 MG PO
== END ==
LOC: HYPER 07:08
DX: T81.31XA Disruption of external operation (surgical) wound, not elsewhere classified, initial encounter (principal); S31.14 Puncture wound of abdominal wall with foreign body without penetration into peritoneal cavity; M19.90 Unspecified osteoarthritis, unspecified site; F32.9 Major depressive disorder, single episode, unspecified; F41.9 Anxiety disorder, unspecified; Z86.711 Personal history of pulmonary embolism; Z79.01 Long term (current) use of anticoagulants; X58.XXXS Exposure to other specified factors, sequela; Y92.89 Other specified places as the place of occurrence of the external cause; Y83.8 Other surgical procedures as the cause of abnormal reaction of the patient, or of later complication, without mention of misadventure at the time of the procedure

== ENCOUNTER → 2018-04-02 | Outpatient (CLI) | payer OTHER | LOC: ULTRA 14:19 | DX: S39.91XD Unspecified injury of abdomen, subsequent encounter (principal); J98.11 Atelectasis; X58.XXXD Exposure to other specified factors, subsequent encounter ==

== ENCOUNTER 2018-04-08 09:46 | Inpatient (IN) | payer OTHER ==
[~2018-04-08] VITALS: Ht 167.6 cm; Wt 101.2 kg
--- NOTE | ~2018-04-08 | O ---
[facility] [place] [address] OPERATIVE REPORT Name: YING PARISI Room #: 432-P [facility] IN M.R.#: [id number] Admission: 04/08/18 Attend Phys: Beto Hurtado MD, F Discharge: 04/09/18 Date of : 72 Report #: [id number] THIS REPORT FOR: //name// CC: Jaci Hurtado MD DATE OF SERVICE: 04/08/2018 SURGEON: Beto Hurtado MD COMPOUNDING SCALER: None. PREOPERATIVE DIAGNOSES: 1. Abdominal wound with suspected foreign body, status post fall into a brush pile with an impaled branch. 2. Chronic pain. POSTOPERATIVE DIAGNOSES: 1. Abdominal wound with foreign bodies x 2, status post fall into a brush pile with an impaled branch. 2. Chronic pain. PROCEDURE: A traumatic wound exploration with removal of abdominal wall foreign bodies x 2. ANESTHESIA: Monitored anesthetic care and local anesthetic. ESTIMATED BLOOD LOSS: 5 mL. SPECIMEN: Foreign bodies x 2 (small pieces of wood). COMPLICATIONS: None appreciated. INDICATIONS FOR PROCEDURE: This is a 47-year-old female patient, known to me from previous wound explorations with removal of foreign bodies from the abdominal wound on 2 separate occasions. After the patient's most recent foreign body removal on 03/27/2018, the patient has expelled yet another small piece of wood from her abdomen with 2 new areas of pain located superior to the left aspect of the incision as well as lateral to the right aspect of the incision/wound. These areas were unaffected at the time of her last operation. The patient was seen in Dr. Narendra Meneses's office during which time she complained of significant pain in both these areas. Ultrasound revealed foreign body to the right of the umbilicus with no associated fluid or loculated abscess. Foreign body was not seen on the left side. The patient was seen in [address] [address] OPERATIVE REPORT Name: YING PARISI Room #: 432-P [facility] IN ..#: [id number] Admission: 04/08/18 Attend Phys: Beto Hurtado MD, F Discharge: 04/09/18 Date of : 72 Report #: [id number] clinic and presents now for wound exploration. OPERATIVE FINDINGS: Foreign bodies were located at the right lateral aspect of the wound as well as superior to the left aspect of the wound. Each foreign body was 1-1.5 cm in length and no associated fluid collections or abscess cavities were present. On further exploration of the wound, no other foreign body was present. DESCRIPTION OF PROCEDURE IN DETAIL: After the risks, benefits, and expectations of the operation were discussed in detail with the patient, informed consent was obtained. The patient was identified in the preoperative holding area. She has been receiving scheduled oral antibiotics on an outpatient basis. She was taken to the operating room and she was placed in the supine position. SCDs were placed on the patient's bilateral lower extremities and pneumatic compression was initiated. The patient was then given IV sedation. When adequately sedated, her abdomen was prepped and draped in the standard sterile fashion. A time-out was performed to identify the correct patient and procedure. Local anesthetic was infiltrated into the skin and subcutaneous tissue around the transverse abdominal wound. The right lateral wound was explored first. Foreign body was palpable in a firm, indurated area. A sharp #15 blade scalpel was used to extend the incision transversely laterally on the right. A hemostat was then used to gently spread within the tissue and the foreign body was then visualized and removed. Digital palpation revealed no further foreign body within the wound. The wound was then explored in the area of pain on the left of midline, superior to the already existing wound. Local anesthetic was infiltrated into the skin and subcutaneous tissue in this area. Palpation revealed indurated tissue. A hemostat was used to spread within the tissue, during which time a foreign body was palpable. After significant spreading of the tissue, the foreign body was able to be removed with a hemostat. Digital palpation revealed no further foreign body in this area. There was no significant bleeding from the wound. The wound was then copiously irrigated with normal saline. After ensuring no further foreign body and that the wound was hemostatic, the wound was packed with 1 inch iodoform gauze. An ABD and tape were then placed. The patient tolerated the procedure well. She was awakened and taken to the recovery room in stable condition with no apparent intraoperative complications. <ELECTRONICALLY SIGNED> By: Beto Hurtado MD, FACS 04/10/18 1530 [id number] [id number] Beto Hurtado MD, FACS /nt
--- NOTE | ~2018-04-08 | PATH ---
[facility] [place] [address] [address] [place] [address] PATHOLOGY RPT PROCEDURE Name: YING PARISI Room #: 432-P [facility] IN M.R.#: [id number] Admission: 04/08/18 Date of : 72 Discharge: 04/09/18 Report #: [id number] Path Case #: [id number] [facility] Accession Number: [id number] . 01 Material submitted: . FOREIGN BODIES X2 FROM ABDOMINAL WALL . 01 Clinical history: . Abdominal wound . 02 Diagnosis: Foreign bodies x2, from abdominal wall, removal: - Two segments of wood measuring 1.8, and 2.4 cm (gross exam only). (IUV:manager art; 04/09/2018) MBR/04/09/2018 . 02 Electronically signed: . Nelli Oliva MD, Pathologist NPI- [id number] . 01 Gross description: . The specimen is received in formalin, labeled "Bise, Ying, foreign bodies x2 from abdominal wall" are 2 segments of wood measuring 1.8 x 0.4 x 0.3 cm and 2.4 x 0.4 x 0.3 cm. Gross photos are taken. (SDY; 04/08/2018) SYU/SYU . 02 Pathologist provided ICD-10: Z18.33 . 02 CPT . 980316 Specimen Comment: A courtesy copy of this report has been sent to Specimen Comment: [phone], . Specimen Comment: Report sent to / DR SANTILLAN Specimen Comment: A duplicate report has been generated due to demographic updates. Performed at: [address], [place] [id number] MD Orlando Rashid MD Phone: [phone] Performed at: [address] [id number] MD Nelli Oliva MD Phone: [phone]
[2018-04-08] MEDS ORDERED: OXYCODONE HCL5 M1 PO (11:26)
[2018-04-08 13:14] VITALS: BP 131/84
[2018-04-08 15:40] VITALS: BP 123/83
[2018-04-08 19:20] VITALS: BP 110/74
[2018-04-09 05:16] VITALS: BP 122/78
[2018-04-09 05:52] LABS: CALCIUM 9.1 mg/dL (8.5-10.1); CREATININE 0.7 mg/dL (0.6-1.0); POTASSIUM 4.4 mmol/L (3.5-5.1)
[2018-04-09 06:00] LABS: ABSOLUTE NEUTROPHILS 7.9 thou/uL (1.4-8.2); BASOPHILS 0.1 % (0.0-2.0); HEMATOCRIT 34.5 % (37.0-47.0); HEMOGLOBIN 11.6 gm/dL (12.0-15.0); LYMPHOCYTES 9.1 % (24.0-44.0); MCH 30.4 pg (26.0-34.0); MCHC 33.7 g/dL (28.0-37.0); MCV 90.2 fL (80.0-100.0); MONOCYTES 4.8 % (1.0-8.0); PLATELET COUNT 277 thou/uL (150-400); RBC 3.82 mil/uL (4.20-5.00); RDW 14.4 % (10.5-14.5); WBC 9.2 thou/uL (4.0-11.0)
[2018-04-09 13:08] VITALS: BP 122/78
== END 2018-04-09 13:25 | disposition home or self-care (01) | DRG 914 ==
LOC: OR 09:46 → TBA 09:46 → OR 15:01 → 4E 15:01
PROVIDERS: Surgery
PROC: 0JC80ZZ Extirpation of Matter from Abdomen Subcutaneous Tissue and Fascia, Open Approach (ICD-10-PCS; principal; 2018-04-08)
DX: S31.149A Puncture wound of abdominal wall with foreign body, unspecified quadrant without penetration into peritoneal cavity, initial encounter (principal); D68.2 Hereditary deficiency of other clotting factors; G89.29 Other chronic pain; K43.9 Ventral hernia without obstruction or gangrene; Z88.8 Allergy status to other drugs, medicaments and biological substances; Z88.6 Allergy status to analgesic agent; Z88.1 Allergy status to other antibiotic agents; Z91.012 Allergy to eggs; W18.39XA Other fall on same level, initial encounter; Y93.89 Activity, other specified; Y92.89 Other specified places as the place of occurrence of the external cause; Y99.8 Other external cause status
CPT/HCPCS: 10783; 50010; 50101; 50386; 50417; 62110; 62900; 70005

== ENCOUNTER 2018-04-27 05:24 | Day surgery (SDC) | payer OTHER ==
[~2018-04-27] VITALS: Ht 167.6 cm; Wt 103.9 kg
[2018-04-27 10:27] LABS: CALCIUM 8.4 mg/dL (8.5-10.1); CREATININE 0.8 mg/dL (0.6-1.0); POTASSIUM 3.9 mmol/L (3.5-5.1)
[2018-04-27 10:35] VITALS: BP 107/73
[2018-04-27] MEDS ORDERED: OXYCODONE HCL5 M1 PO (14:14)
[2018-04-27 16:00] VITALS: BP 115/80
--- NOTE | 2018-04-27 18:39 | NUR ---
PT RECEIVED FROPM SURGERY AWAKE/PAIN CONTROLLED. PT RESTING IN BED AT THIS TIME. UP AD BABS. DRESSING CDI. WILL CONT. TO MONITOR.
[2018-04-27 19:20] VITALS: BP 120/77
--- NOTE | 2018-04-28 02:00 | NUR ---
A/O, calm and pleasant; c/o pain in abdomen, pain medication given and worked; vss, afebrile. Got up to the bathroom with standby assistance, steady. bed rest now, will keep monitoring.
[2018-04-28 05:24] VITALS: BP 108/78
[2018-04-28 05:28] LABS: HEMATOCRIT 33.5 % (37.0-47.0); HEMOGLOBIN 11.2 gm/dL (12.0-15.0); MCHC 33.3 g/dL (28.0-37.0); MCV 90.1 fL (80.0-100.0); PLATELET COUNT 192 thou/uL (150-400); RBC 3.72 mil/uL (4.20-5.00); RDW 14.5 % (10.5-14.5); WBC 3.6 thou/uL (4.0-11.0)
[2018-04-28 05:40] LABS: CALCIUM 8.5 mg/dL (8.5-10.1); CREATININE 0.8 mg/dL (0.6-1.0); POTASSIUM 4.8 mmol/L (3.5-5.1)
[2018-04-28 06:09] LABS: ABSOLUTE NEUTROPHILS 1.8 thou/uL (1.4-8.2)
[2018-04-28 06:10] LABS: PLATELET ESTIMATE NORMAL; POLYCHROMASIA OCCASIONAL
[2018-04-28 07:30] VITALS: BP 95/65
[2018-04-28 11:34] VITALS: BP 95/65
[2018-04-28 12:05] VITALS: BP 95/65
[2018-04-28 12:37] VITALS: BP 95/65
--- NOTE | 2018-04-28 12:39 | NUR ---
PT DISCHARGED TAKEN TO SECURITY WHO WILL GIVE HER VOUCHER. SHE NEEDS TO GO TO [facility]
--- NOTE | 2018-04-28 18:28 | O ---
[facility] [place] [address] OPERATIVE REPORT Name: YING PARISI Room #: DEP [facility]..#: [id number] Admission: 04/27/18 Attend Phys: Beto Hurtado MD, F Discharge: 04/28/18 Date of : 72 Report #: [id number] THIS REPORT FOR: //name// CC: Jaci Ulices Hurtado DATE OF SERVICE: 04/27/2018 SURGEON: Beto Hurtado MD SALES ADVISOR: None. PREOPERATIVE DIAGNOSES: 1. Traumatic abdominal wound with probable foreign body, status post fall into brush pile. 2. Factor V Leiden. 3. History of chronic narcotic abuse. POSTOPERATIVE DIAGNOSES: 1. Traumatic abdominal wound with foreign bodies x 3, status post fall into brush pile. 2. Factor V Leiden. 3. History of chronic narcotic abuse. PROCEDURE: Exploration and mechanical debridement of traumatic abdominal wound with removal of foreign bodies x 3. ANESTHESIA: General laryngeal mask anesthesia and local anesthetic. ESTIMATED BLOOD LOSS: 5 mL. SPECIMEN: Foreign bodies x 3. COMPLICATIONS: None appreciated. INDICATIONS FOR PROCEDURE: This is a 47-year-old female patient known to me from previous wound explorations with removal of foreign bodies from the wound on 3 separate occasions. After her most recent foreign body removal on 04/08/2018, she developed a new area of pain to the left of the left aspect of her abdominal wound. This area was unaffected at the time of her last exploration. She was seen by Dr. Narendra Meneses with complaints of significant pain in this area. I saw her in clinic earlier this morning where the erythema was identified corresponding with her area of tenderness. She presents now for wound exploration. [address] [address] OPERATIVE REPORT Name: YING PARISI Room #: DEP [facility] M..#: [id number] Admission: 04/27/18 Attend Phys: Beto Hurtado MD, F Discharge: 04/28/18 Date of : 72 Report #: [id number] DESCRIPTION OF PROCEDURE IN DETAIL: After the risks, benefits, and expectations of the operation were discussed in detail with the patient, informed consent was obtained. The patient was identified in preoperative holding area. She was given IV antibiotics as documented in the chart in line with SCIP metrics. The patient was then taken to the operating room. She was placed in the supine position. SCDs were placed in the patient's bilateral lower extremities and pneumatic compression was initiated. The patient was then given IV sedation and a laryngeal mask was placed without difficulty. Her abdomen was prepped and draped in the standard sterile fashion. A time-out was performed to identify the correct patient and procedure. Local anesthetic was infiltrated into the skin and subcutaneous tissue to the left aspect of her wound. A sharp #10 blade scalpel was used to make an incision through the skin and subcutaneous tissue. Electrocautery was used to dissect through the subcutaneous tissue until foreign body was seen. Three total pieces of wood were removed from the wound after exploring all spaces in this area. No pus was seen. The wound was mechanically debrided with a curette. The wound was also opened and the subcutaneous tissue to attempt to identify any more foreign body that may be present. The entire wound surface area was oozing after mechanical debridement. The wound was then irrigated with normal saline. A half inch iodoform was packed into the wound to cover the entire wound surface area. There was good hemostasis. Sterile dressings were then applied. The patient tolerated the procedure well. She was awakened, the laryngeal mask was removed without difficulty, and she was taken to the recovery room in stable condition with no apparent intraoperative complications. <ELECTRONICALLY SIGNED> By: Beto Hurtado MD, FACS 04/28/18 1828 1402 [id number] Beto Hurtado MD, FACS /nt
== END 2018-04-28 12:42 | disposition home or self-care (01) ==
LOC: OR 05:24 → TBA 05:24 → ICU 15:06 → OR 16:18 → 4E 16:39 → OR 17:16
PROVIDERS: Surgery
DX: S31.149A Puncture wound of abdominal wall with foreign body, unspecified quadrant without penetration into peritoneal cavity, initial encounter (principal); D68.51 Activated protein C resistance; F11.21 Opioid dependence, in remission; Z79.899 Other long term (current) drug therapy; W19.XXXA Unspecified fall, initial encounter; Y93.89 Activity, other specified; Y92.89 Other specified places as the place of occurrence of the external cause; Y99.8 Other external cause status
CPT/HCPCS: 10783; 50010; 50101; 50386; 50417; 62110; 62900; 70005

== ENCOUNTER → 2018-05-06 | Outpatient (CLI) | payer OTHER | LOC: HYPER 06:32 | DX: T81.31XD Disruption of external operation (surgical) wound, not elsewhere classified, subsequent encounter (principal); M19.90 Unspecified osteoarthritis, unspecified site; F41.9 Anxiety disorder, unspecified; F32.9 Major depressive disorder, single episode, unspecified; Z86.711 Personal history of pulmonary embolism; Z79.01 Long term (current) use of anticoagulants; Y83.8 Other surgical procedures as the cause of abnormal reaction of the patient, or of later complication, without mention of misadventure at the time of the procedure ==

== ENCOUNTER → 2018-05-11 | Outpatient (CLI) | payer OTHER ==
[~2018-05-11] MED LIST changes: +DURAGESIC1 EAC3 TRANSDERM; +OXYCODONE HCL10 MG PO; +OXYCONTIN40 MG PO; +PAXIL CR25 MG PO
== END ==
LOC: HYPER 11:57
DX: T81.31XD Disruption of external operation (surgical) wound, not elsewhere classified, subsequent encounter (principal); M19.90 Unspecified osteoarthritis, unspecified site; F32.9 Major depressive disorder, single episode, unspecified; F41.9 Anxiety disorder, unspecified; Z79.01 Long term (current) use of anticoagulants; Z86.711 Personal history of pulmonary embolism; Y83.8 Other surgical procedures as the cause of abnormal reaction of the patient, or of later complication, without mention of misadventure at the time of the procedure

== ENCOUNTER 2018-05-18 18:43 | Inpatient (IN) | payer OTHER ==
[~2018-05-18] VITALS: Ht 167.6 cm; Wt 98.9 kg
[2018-05-18 18:55] VITALS: BP 143/118
[2018-05-18 20:26] LABS: ABSOLUTE NEUTROPHILS 4.3 thou/uL (1.4-8.2); BASOPHILS 0.7 % (0.0-2.0); EOSINOPHILS 2.1 % (0.0-3.0); HEMATOCRIT 40.6 % (37.0-47.0); HEMOGLOBIN 13.9 gm/dL (12.0-15.0); LYMPHOCYTES 17.8 % (24.0-44.0); MCH 30.5 pg (26.0-34.0); MCHC 34.3 g/dL (28.0-37.0); MCV 88.9 fL (80.0-100.0); MONOCYTES 7.6 % (1.0-8.0); PLATELET COUNT 229 thou/uL (150-400); POLYS 71.8 % (36.0-66.0); RBC 4.57 mil/uL (4.20-5.00); RDW 14.2 % (10.5-14.5)
[2018-05-18 20:33] LABS: CALCIUM 8.8 mg/dL (8.5-10.1); CREATININE 0.8 mg/dL (0.6-1.0); POTASSIUM 4.3 mmol/L (3.5-5.1)
[2018-05-18 21:05] VITALS: BP 122/76
[2018-05-18 21:30] VITALS: BP 129/78
--- NOTE | 2018-05-19 03:37 | NUR ---
PT WAS ADMITTED TO THE UNIT AT APPROX 2120 FROM THE ER IN A STABLE CONDITION.PT C/O PAIN ON HER MID ABD,MANAGED WITH PO AND IV PAIN MED.ASSESSMENT,HX AND EDUCATION COMPLETED.INCISIONAL WOUND ON HER ABD CLEANED,COVERED WITH WET TO DRY DRSG.PT NPO AT THIS TIME FOR A PROCEDURE IN THE AM.CALL LIGHT WITHIN REACH.
[2018-05-19 03:53] LABS: CALCIUM 8.3 mg/dL (8.5-10.1); CREATININE 0.7 mg/dL (0.6-1.0); POTASSIUM 4.3 mmol/L (3.5-5.1)
[2018-05-19 05:00] VITALS: BP 165/95
[2018-05-19 07:47] VITALS: BP 112/72
--- NOTE | 2018-05-19 08:16 | NUR ---
RECEIVED PT APPROX 0730. A/O/RESTING IN BED. C/O PAIN. NO NOTED SOA. NO NV. MEDS GIVEN ORDERED- SEE JUN. NPO FOR POSSIBLE PROCEDURE TODAY. NO OTHER CONCERNS AT THIS TIME. CALL LIGHT IN REACH. WILL CONT. TO MONITOR.
--- NOTE | 2018-05-19 12:29 | NUR ---
WOUND CONSULT: PT. WAS SEEN TODAY BY DR. BENITEZ AND MYSELF. PT. IS WELL KNOWN TO THE WOUND CARE TEAM. PT. HAS A SURGICAL INCISON TO HER ABDOMEN FROM REMOVAL OF FOREGIN BODY ON 05/12/18. PT. IS KNOWN TO DR. LOGAN AND IS COMPLAINING OF MORE PAIN AT THIS TIME. AWAITING SURGICAL EVAL. RECOMMENDATIONS: PACK INCSION WITH SALINE MOIST GAUZE DAILY AND PRN. PT. AND STAFF NURSE WERE INSTRUCTED ON PLAN OF CARE.
--- NOTE | 2018-05-19 15:01 | NUR ---
PT IN SURGERY AT THIS TIME.
[2018-05-19 17:21] VITALS: BP 98/81
--- NOTE | 2018-05-19 18:54 | NUR ---
PT BACK IN SURGERY. C/O PAIN MANAGED BY MEDS ORDERED. TOLERATING DIET.
[2018-05-19 19:40] VITALS: BP 105/61
[2018-05-19 21:34] VITALS: BP 119/78
--- NOTE | 2018-05-19 22:08 | NUR ---
ASSESSMENT COMPLETED. PT IS ALERT AND ORIENTED.PT IS UP AD BABS IN ROOM. PAIN TO ABDOMEN IS ABOUT 8/10, GETTING PO OXYCODONE WITH FAIR RELIEF. PT IS VOIDING OKAY IN THE BATHROOM. DRSG TO ABDOMEN IS C/D/I. AFEBRILE. STABLE ON ROOM AIR. IVF INFUSING VIA RAC. WILL CONTINUE WITH POC TILL EOS.
[2018-05-20 04:17] VITALS: BP 120/73
[2018-05-20 05:41] LABS: HEMATOCRIT 37.3 % (37.0-47.0); HEMOGLOBIN 12.8 gm/dL (12.0-15.0); MCH 30.7 pg (26.0-34.0); MCHC 34.2 g/dL (28.0-37.0); MCV 89.6 fL (80.0-100.0); RBC 4.17 mil/uL (4.20-5.00); RDW 14.2 % (10.5-14.5); WBC 8.3 thou/uL (4.0-11.0)
[2018-05-20 05:58] LABS: CALCIUM 8.9 mg/dL (8.5-10.1); CREATININE 0.9 mg/dL (0.6-1.0); POTASSIUM 4.8 mmol/L (3.5-5.1)
[2018-05-20 07:25] VITALS: BP 123/88
--- NOTE | 2018-05-20 10:46 | HC ---
[facility] [place] [address] CONSULTATION Name: YING PARISI Room #: 427-P ADM IN M.R.#: [id number] Admission: 05/18/18 Attend Phys: Jerel Welch MD Discharge: Date of : 72 Report #: [id number] THIS REPORT FOR: //name// CC: [facility]i [facility] DATE OF SERVICE: 05/19/2018 CHIEF COMPLAINT: Abdominal wall pain. HISTORY OF PRESENT ILLNESS: This is a 47-year-old female patient with whom I am familiar having had multiple recent admissions for subcutaneous foreign bodies in the abdominal wall. The patient had fallen from a ladder. In early February, she was admitted to the hospital with a puncture wound to the abdominal wall. She had fallen on a pile of brush and had some wood foreign bodies. She has had multiple surgeries. It is felt each time that she has a benign abdominal exam and then usually a week or so later develops an area of tenderness and swelling and then has another incision and removal of foreign body. She last had surgery about a week ago. She was feeling well post-surgery. Now over the last couple of days has increased redness and pain in the left side of the abdominal wall just lateral to the previous incision. PAST MEDICAL HISTORY: Positive for factor V Leiden deficiency, multiple pulmonary emboli. She has an IVC filter. She has undergone multiple abdominal operations in the past including ventral hernia repair with underlying mesh present. She has had multiple knee surgeries, previous cholecystectomy, gastric bypass, uterine ablation, IVC filter, history of depression, anxiety, and appendectomy. ALLERGIES: CODEINE, EGG, LEVOFLOXACIN, TRAMADOL, COMPAZINE, AND NALBUPHINE. MEDICATIONS: Include enoxaparin, paroxetine, clindamycin, fentanyl, acetaminophen, nitroglycerin, ondansetron, polyethylene glycol, zolpidem and hydromorphone. FAMILY HISTORY: Positive for coronary artery disease and diabetes in her mother. SOCIAL HISTORY: Negative for alcohol or tobacco use. REVIEW OF SYSTEMS: CONSTITUTIONAL: The patient denies no fever, chills or weight loss. NEUROLOGICAL: The patient denies focal weakness, numbness or tingling. EYES: The patient denies visual changes, redness or drainage. ENT: The patient denies earache, nasal drainage, sore throat. [address] [address] CONSULTATION Name: YING PARISI Room #: 427-P [facility] IN .R.#: [id number] Admission: 05/18/18 Attend Phys: Jerel Welch MD Discharge: Date of : 72 Report #: [id number] CARDIOVASCULAR: The patient denies chest pain, palpitations or diaphoresis. PULMONARY: The patient denies cough or shortness of breath. GASTROINTESTINAL: The patient denies nausea or vomiting. Does complain of abdominal wall pain to the left of the midline. GENITOURINARY: The patient denies frequency or urgency or urination. Denies dysuria. ORTHOPEDIC: The patient denies pain or swelling in the extremities. Other systems in a 14-point review of systems are negative. PHYSICAL EXAMINATION: VITAL SIGNS: At this time include pulse 69, respiration of 16, blood pressure 112/72, temperature 98.4. GENERAL: This is a chronically ill-appearing female patient who appears to be in minimal distress. HEENT: Head normocephalic. Nose and throat are clear. NECK: Supple. LUNGS: Clear. HEART: Regular. ABDOMEN: Soft. Bowel sounds present. There is tenderness on the left side of the abdominal wall lateral to the existing open incision/surgical wound. There is mild erythema there. NEUROLOGIC: The patient is alert, oriented and appropriate. CLINICAL IMPRESSION: 1. Surgical wounds to the abdominal wall with history of multiple wood, subcutaneous foreign bodies likely with persistent retained foreign body. 2. History of factor V Leiden deficiency. 3. History of pulmonary emboli. 4. There is a family history of anxiety and depression. RECOMMENDATIONS: At this point in time, the patient is currently n.p.o. following her admission to the hospital. General Surgery has been consulted. Dr. Hurtado will see her likely and she will likely need to be taken to the Operating Room for exploration and removal of foreign body. The hospitalists have held her Eliquis for now in anticipation of surgical intervention. We will recommend saline moist gauze for the short term and continue to follow her postoperatively. I appreciate being asked to see her again in consultation. <ELECTRONICALLY SIGNED> By: Melquiades Uribe MD 05/20/18 1046 [id number] [id number] Melquiades Uribe MD /nt
[2018-05-20 16:16] VITALS: BP 123/88
--- NOTE | 2018-05-21 12:08 | PATH ---
[facility] [place] [address] [address] PATHOLOGY RPT PROCEDURE Name: YING ROSALES Room #: 427-P [facility] IN M.R.#: [id number] Admission: 05/18/18 Date of : 72 Discharge: 05/20/18 Report #: [id number] Path Case #: [id number] [facility] Accession Number: [id number] . 01 Material submitted: . FOREIGN BODY REMOVED FROM ABDOMINAL WALL X3 . 01 Clinical history: . Retained foreign body, abdominal wall . 02 Diagnosis: Foreign body, abdominal wall, removal: - Three segments of wood ranging from 2.0 cm to 3.2 cm (gross exam only). . 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 02 Electronically signed: . Nelli Oliva MD, Pathologist NPI- [id number] . 01 Gross description: . Received in formalin labeled "Ying Rosales, foreign body removed from abdominal wall x3," are three elongate segments of dark brown possible wood ranging from 2.0 to 3.2 cm in length and ranging from 0.2 to 0.3 cm in diameter. A gross photograph is taken. Tissue is not submitted. ([facility]; 05/20/2018) XDC/XDC . 02 Pathologist provided ICD-10: S31.649D, Z18.33 . 02 CPT . 336027 Specimen Comment: A courtesy copy of this report has been sent to Specimen Comment: [phone], , . Specimen Comment: Report sent to ,DR CAMEJO / DR SANTILLAN Specimen Comment: A duplicate report has been generated due to demographic updates. Performed at: [address] [facility], [place], [place] [id number] MD Orlando Rashid MD Phone: [phone] Performed at: [address] [facility] [id number] MD Nelli Oliva MD Phone: [phone]
--- NOTE | 2018-05-22 07:06 | O ---
[facility] [place] [address] OPERATIVE REPORT Name: YING PARISI Room #: 427-P [facility] IN M.R.#: [id number] Admission: 05/18/18 Attend Phys: Jerel Welch MD Discharge: 05/20/18 Date of : 72 Report #: [id number] THIS REPORT FOR: //name// CC: Jaci Ulices Welch DATE OF SERVICE: 05/19/2018 SURGEON: Beto Hurtado MD HIGH VALUE ASSOCIATE: None. PREOPERATIVE DIAGNOSES: 1. Traumatic abdominal wound with probable foreign bodies, status post fall into brush bile. 2. Factor V Leiden. 3. Chronic pain. POSTOPERATIVE DIAGNOSES: 1. Traumatic abdominal wound with foreign bodies, status post fall into brush bile. 2. Factor V Leiden. 3. Chronic pain. PROCEDURES: 1. Exploration of traumatic abdominal wound. 2. Removal of abdominal wall foreign bodies x 3. ANESTHESIA: Monitored anesthetic care and local anesthetic. ESTIMATED BLOOD LOSS: 10 mL. SPECIMEN: Foreign body x 3. COMPLICATIONS: None appreciated. INDICATIONS FOR PROCEDURE: This is a 47-year-old female patient who is well known to me from previous wound explorations and foreign body removal procedures from her abdominal wall through a traumatic wound. The patient was on a 5-foot ladder and fell into a brush bile several months ago. As a result of this, she has had multiple pieces of brush that had been dispersed throughout the subcutaneous tissue in her abdominal wall. Unfortunately, imaging is an unreliable diagnostic tool in attempting to identify the foreign bodies. Foreign bodies are removed clinically when her body begins to reject them as she develops pain and associated inflammatory change. The patient was admitted yesterday with increasing abdominal pain from her left abdomen with mild [facility] [address] [place] [address] OPERATIVE REPORT Name: YING PARISI Room #: 427-P [facility] IN M.R.#: [id number] Admission: 05/18/18 Attend Phys: Jerel Welch MD Discharge: 05/20/18 Date of : 72 Report #: [id number] induration, although there was no significant drainage or erythema of the skin. She presents now for wound exploration, possible foreign body removal. OPERATIVE FINDINGS: Three more pieces of wood were present within the left aspect of the wound. The pieces of wood ranged in size from 3 cm to 1.5 cm in length. No associated abscess cavities were present. All the foreign bodies were in close proximity to each other. There was extensive exploration of the subcutaneous tissue whereby pockets were created and a firm area was felt within the tissue. This was found to be scar tissue, possibly associated with the previously placed abdominal wall mesh. There was truly no abscess or pus associated with the foreign bodies. At the conclusion of the operation, sponge, needle, and instrument counts were correct. DESCRIPTION OF PROCEDURE IN DETAIL: After the risks, benefits and expectations of the operation were discussed in detail with the patient, informed consent was obtained. The patient was identified in the preoperative holding area where she was given IV antibiotics as documented in the chart in line with SCIP metrics. The patient was then taken to the Operating Room and she was placed in the supine position. SCDs had been placed in the patient's bilateral lower extremities and pneumatic compression was initiated. The patient has a history of factor V Leiden. The patient was given IV sedation and when adequately sedated, her abdomen was prepped and draped in standard sterile fashion with Betadine. A time-out was performed to identify the correct patient and procedure. Local anesthetic was infiltrated into the skin and subcutaneous tissue around the left aspect of the wound where the area of induration was present. With digital palpation, I was able to feel tissue that was irregular and firm and this corresponded with the foreign bodies. Three total pieces of wood was removed from this area in close proximity to each other. Using finger dissection, several pockets were created through which the subcutaneous tissue was palpated and there was a firm area deep to the wound. This was opened and scar tissue was present, presumably associated with mesh. No further wound was found within the explored the wound. The skin was incised 2 cm transversely on the left lateral aspect of the wound to further open the wound and explore the subcutaneous space. Bleeding points were made hemostatic with electrocautery. The wound was then irrigated with normal saline. The cavity was packed with 1-inch iodoform gauze. 4 x 4, an ABD and tape were applied. The patient tolerated the procedure well. She was awakened and taken to the Recovery Room in stable condition with no apparent intraoperative complications. <ELECTRONICALLY SIGNED> By: Beto Hurtado MD, FACS 05/22/18 [id number] Beto Hurtado MD, FACS /nt
== END 2018-05-20 17:30 | disposition home or self-care (01) | DRG 913 ==
LOC: ER 18:43 → EROBS 19:58 → 4E 19:58
PROVIDERS: Emergency Medicine; Nurse Practitioner Family; Surgery; ADMIT Hospitalist
PROC: 0JC80ZZ Extirpation of Matter from Abdomen Subcutaneous Tissue and Fascia, Open Approach (ICD-10-PCS; principal; 2018-05-19)
DX: S31.149A Puncture wound of abdominal wall with foreign body, unspecified quadrant without penetration into peritoneal cavity, initial encounter (principal); E43 Unspecified severe protein-calorie malnutrition; D68.51 Activated protein C resistance; W11.XXXA Fall on and from ladder, initial encounter; F32.9 Major depressive disorder, single episode, unspecified; F41.9 Anxiety disorder, unspecified; Z88.5 Allergy status to narcotic agent; Z88.8 Allergy status to other drugs, medicaments and biological substances; Z88.6 Allergy status to analgesic agent; Z88.1 Allergy status to other antibiotic agents; Z86.711 Personal history of pulmonary embolism; Z91.012 Allergy to eggs; Z90.49 Acquired absence of other specified parts of digestive tract; Z98.84 Bariatric surgery status; Z79.899 Other long term (current) drug therapy; Z83.3 Family history of diabetes mellitus; Z82.49 Family history of ischemic heart disease and other diseases of the circulatory system; Z98.891 History of uterine scar from previous surgery; Y93.89 Activity, other specified; Y92.89 Other specified places as the place of occurrence of the external cause; Y99.8 Other external cause status
CPT/HCPCS: 10084; 50010; 50101; 50386; 62110; 62850; 70005

== ENCOUNTER → 2018-06-01 | Outpatient (CLI) | payer OTHER | LOC: HYPER 05-20 14:31 | DX: T81.31XD Disruption of external operation (surgical) wound, not elsewhere classified, subsequent encounter (principal); M19.90 Unspecified osteoarthritis, unspecified site; F32.9 Major depressive disorder, single episode, unspecified; F41.9 Anxiety disorder, unspecified; Z86.711 Personal history of pulmonary embolism; Z79.01 Long term (current) use of anticoagulants; Y83.8 Other surgical procedures as the cause of abnormal reaction of the patient, or of later complication, without mention of misadventure at the time of the procedure ==

== ENCOUNTER → 2018-06-08 | Outpatient (CLI) | payer OTHER | LOC: HYPER 06:57 | DX: T81.31XD Disruption of external operation (surgical) wound, not elsewhere classified, subsequent encounter (principal); M19.90 Unspecified osteoarthritis, unspecified site; F32.9 Major depressive disorder, single episode, unspecified; F41.9 Anxiety disorder, unspecified; Z79.01 Long term (current) use of anticoagulants; Z86.711 Personal history of pulmonary embolism; Y83.8 Other surgical procedures as the cause of abnormal reaction of the patient, or of later complication, without mention of misadventure at the time of the procedure ==

== ENCOUNTER 2018-06-13 18:29 | Inpatient (IN) | payer OTHER ==
[~2018-06-13] VITALS: Ht 167.6 cm; Wt 114.2 kg
[2018-06-13 18:30] VITALS: BP 152/90
[2018-06-13 19:10] LABS: ABSOLUTE NEUTROPHILS 1.8 thou/uL (1.4-8.2); EOSINOPHILS 3.1 % (0.0-3.0); HEMATOCRIT 40.8 % (37.0-47.0); HEMOGLOBIN 13.4 gm/dL (12.0-15.0); LYMPHOCYTES 25.3 % (24.0-44.0); MCH 28.9 pg (26.0-34.0); MCHC 32.8 g/dL (28.0-37.0); MCV 88.3 fL (80.0-100.0); MONOCYTES 9.5 % (1.0-8.0); PLATELET COUNT 248 thou/uL (150-400); POLYS 61.1 % (36.0-66.0); RBC 4.62 mil/uL (4.20-5.00); RDW 14.5 % (10.5-14.5)
[2018-06-13 19:21] LABS: CALCIUM 9.2 mg/dL (8.5-10.1); CREATININE 0.9 mg/dL (0.6-1.0); POTASSIUM 3.6 mmol/L (3.5-5.1)
[2018-06-13 19:24] LABS: ALBUMIN 3.5 g/dL (3.4-5.0); TOTAL BILIRUBIN 0.4 mg/dL (<0.1-1.0); TOTAL PROTEIN 8.4 g/dL (6.4-8.2)
[2018-06-13 19:47] LABS: URINE BILIRUBIN NEGATIVE (Negative); URINE BLOOD TRACE (Negative); URINE CLARITY CLEAR; URINE COLOR YELLOW; URINE GLUCOSE-RANDOM* NEGATIVE (Negative); URINE KETONES NEGATIVE (Negative); URINE LEUKOCYTES-REFLEX NEGATIVE (Negative); URINE NITRITE-REFLEX NEGATIVE (Negative); URINE PROTEIN (DIPSTICK) NEGATIVE (Negative); URINE SPECIFIC GRAVITY 1.015 (1.005-1.035); URINE UROBILINOGEN 0.2 E.U./dl (0.2-1.0)
[2018-06-13 21:26] VITALS: BP 115/76
[2018-06-13 21:41] VITALS: BP 118/75
[2018-06-13 22:12] VITALS: BP 112/68
--- NOTE | 2018-06-13 22:40 | NUR ---
Pt. admitted to the unit from the emergency room accompanied by staff. She is alert and oriented. Admission assessment and history is completed.
[2018-06-14 04:19] VITALS: BP 106/71
--- NOTE | 2018-06-14 04:46 | NUR ---
Pt. has rested quietly at short intervals during the night when checked on during frequent rounds. She c/o chronic pain to her abdominal incision and pain meds given (see emar) with some to little relief.
[2018-06-14 06:24] LABS: HEMATOCRIT 32.8 % (37.0-47.0); MCH 29.2 pg (26.0-34.0); MCHC 32.8 g/dL (28.0-37.0); MCV 89.1 fL (80.0-100.0); RBC 3.68 mil/uL (4.20-5.00); RDW 14.4 % (10.5-14.5); WBC 3.7 thou/uL (4.0-11.0)
[2018-06-14 06:30] LABS: HEMOGLOBIN 10.8 gm/dL (12.0-15.0)
[2018-06-14 06:35] LABS: CALCIUM 8.6 mg/dL (8.5-10.1); CREATININE 0.8 mg/dL (0.6-1.0); POTASSIUM 4.2 mmol/L (3.5-5.1)
[2018-06-14 07:27] VITALS: BP 113/82
[2018-06-14 13:43] VITALS: BP 107/69
--- NOTE | 2018-06-14 13:52 | NUR ---
TOWARDS POC PT A/O X4, VSS,AFERBILE. PAIN MANAGED BY MEDS. PT SCHEDULED FOR WOUND DEBRIDEMENT IN AM, CONSENT SIGNED ATTACHED TO CHART. N0 CONCERNS VOICED. WILL CONTINUE TO MONITOR.
--- NOTE | 2018-06-14 14:10 | NUR ---
ASSUMED CARE OF PT AT 14:00. AGREE WITH PREVIOUS ASSESSMENT. C/O ABD PAIN, PAIN MEDS GIVEN ORDERED. ABD WOUND DRESSING IN PLACE, C/D/I. A&O,X4. DENIES ANY OTHER CONCERNS. POC SURGERY TOMORROW. PT CURRENTLY LYING IN BED, WILL CONTINUE TO MONITOR.
[2018-06-14 19:15] VITALS: BP 111/69
--- NOTE | 2018-06-14 22:07 | EKG ---
[address] [place] [address] ELECTROCARDIOGRAM REPORT Name: YING PARISIN Room #: 449-I ADM IN M.R.#: [id number] ������������������ Admission: 06/13/18 ������������������ Attend Phys: Jerel Welch MD Discharge: ������������������ Date of : 72 Report #: [id number] ����������������������������������������������������������������� [id number] THIS REPORT FOR: //name// [facility] ED Test Date: 2018-06-13 Test Time: 19:07:41 Pat Name: YING PARISI Department: Room: [facility] Gender: F Data Reduction Technician: GERALDINE : 1970 Requested By: Jalen Sy Order Number: [id number] MD: Fantasma Huertas Measurements Intervals [place] Rate: 88 P: 27 IN: 139 QRS: -22 QRSD: 104 T: 0 QT: 352 QTc: 426 Interpretive Statements Sinus rhythm Borderline left axis deviation Low voltage, precordial leads Consider anterior infarct Borderline T abnormalities, inferior leads Compared to ECG 05/07/2000 11:10:37 Low QRS voltage now present Myocardial infarct finding now present T-wave abnormality now present Sinus tachycardia no longer present Electronically Signed On 06-14-2018 22:07:14 [employer] by Fantasma Huertas [email or web address] ��������������������������������������������� <ELECTRONICALLY SIGNED> ���������������������������������������� By: Fantasma Huertas MD ��������������������������������������������� 06/14/182206 06 06 Fantasma Huertas MD /EPI
[2018-06-15] VITALS (9 sets, daily range): BP systolic 99–125; BP diastolic 57–76
--- NOTE | 2018-06-15 12:48 | NUR ---
Assess due to consult received for pt with chronic abdominal wound following fall w/ trauma 11/2017. S/P I/D. Pt states eating high protein foods every meal, does not use any extra oral supplements. Wt down slightly 9 lb over 6 mo=4%, not significant. Low nutrition risk
--- NOTE | 2018-06-15 14:38 | NUR ---
WOUND CONSULT: PT. WAS SEEN TODAY BY DR. BENITEZ AND MYSELF. PT. IS WELL KNOWN TO THE WOUND CARE TEAM. PT. WAS TAKEN TO THE OR TODAY BY DR. LOGAN FOR A INCSION AND DRAIANGE OF THE ABDOMEN. PT. HAS HAD MULTIPLE PREVIOUS FORGEIN BODY REMOVALS. SURGICAL DRESSING IS C/D/I AT THIS TIME. DRESSING WILL BE CHANGED TOMORROW. RECOMMENDATIONS: LEAVE SURGICAL DRESSING IN PLACE UNTIL TOMORROW WHEN WOUND CARE REMOVES AND EVALUATES. PT. AND STAFF NURSE WERE INSTRUCTED ON PLAN OF CARE.
--- NOTE | 2018-06-15 14:58 | NUR ---
PT ADMITTED RELATED TO ABDOMINAL WOUND. CM REVIEWED CHART AND SPOKE WITH CARE TEAM. CM MET WITH PT AT BEDSIDE THIS DAY. PT IS A AND OX4. CM ROLE INTRODUCED. 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 PT HAD BEEN ON SERVICE WITH [facility] IN THE PAST. CM TO FOLLOW INDICATED WITH DC PLANNING.
--- NOTE | 2018-06-15 18:21 | NUR ---
PT ALERT AND ORIENTED TIMES FOUR FOUR. VSS, 97%RA. I&D SURGERY TO ABD THIS MORNING. PT C/O ABD PAIN PRN PAIN MEDICATIONS GIVEN WITH GOOD RELEIF. PT UP TO RESTROOM WITH STANDBY ASSIST. PT TOLERATES MEDS AND MEALS. PT SLOWLY PROGRESSING TOWRADS POC GOALS.
--- NOTE | 2018-06-15 23:02 | O ---
[facility] [place] [address] OPERATIVE REPORT Name: YING PARISI Room #: 449-I ADM IN M.R.#: [id number] Admission: 06/13/18 ������������������ Attend Phys: Gilberto Erickson MD Discharge: ������������������ Date of : 72 Report #: [id number] THIS REPORT FOR: //name// CC: Jaci Hurtado DATE OF SERVICE: 06/15/2018 SURGEON: Beto Hurtado MD LOCKSTITCH BINDER: None. PREOPERATIVE DIAGNOSES: 1. Traumatic abdominal wound with possible foreign bodies, status post fall into a brush pile. 2. Factor V Leiden. 3. Chronic pain. POSTOPERATIVE DIAGNOSES: 1. Traumatic abdominal wound, containing no identifiable foreign bodies, status post fall into a brush pile. 2. Factor V Leiden. 3. Chronic pain. PROCEDURE: Exploration of traumatic abdominal wound with irrigation and mechanical debridement. ANESTHESIA: Monitored anesthetic care and local anesthetic. ESTIMATED BLOOD LOSS: 10 mL. SPECIMEN: None. COMPLICATIONS: None appreciated. INDICATIONS FOR PROCEDURE: This is a 47-year-old female patient, well known to me from previous wound explorations and foreign body removal procedures. She had fallen from a 5-foot ladder into a brush bile several months ago and multiple pieces of brush were embedded into the subcutaneous tissue of her abdominal wall. Imaging has been an unreliable diagnostic tool in an attempt to identify the foreign bodies. The foreign bodies have not penetrated the abdominal wall. She presents clinically when her body begins to reject the foreign bodies and she develops pain with associated inflammatory change and drainage. She was admitted over the weekend with increasing abdominal pain in [address] [address] OPERATIVE REPORT Name: YING PARISI Room #: 449-I ADM IN M.R.#: [id number] Admission: 06/13/18 ������������������ Attend Phys: Gilberto Erickson MD Discharge: ������������������ Date of : 72 Report #: [id number] her left abdomen as well as increased drainage. She presents now for wound exploration, possible foreign body removal. OPERATIVE FINDINGS: No foreign body was present within the explored wound. The wound was slightly indurated and drainage was present; however, despite an extensive exploration in the subcutaneous tissue and removal of some of the firm tissue (probable fat necrosis), no foreign body was identified. The surrounding tissue was soft and pliable with no inflammatory change. After mechanically debriding the wound, which was 8 cm wide x 6 cm long x 5 cm deep, the remaining tissue was viable. At the conclusion of the operation, sponge, needle, and instrument counts were correct. DESCRIPTION OF PROCEDURE IN DETAIL: After the risks, benefits, and expectations of the operation were discussed in detail with the patient, informed consent was obtained. The patient has been receiving scheduled IV antibiotics. She was taken to the operating room and she was placed in the supine position. SCDs were placed on the patient's bilateral lower extremities and pneumatic compression was initiated. The patient was then given IV sedation and a laryngeal mask was placed without difficulty. The patient's abdomen was then prepped and draped in standard sterile fashion. A time-out was performed to identify the correct patient and procedure. Local anesthetic was infiltrated into the skin and subcutaneous tissue in the left abdomen. A sharp #10 blade scalpel was used to make a transverse incision, extending the wound laterally to the left. Electrocautery was used to dissect through the subcutaneous tissue. Digital exploration revealed firm tissue, but no foreign bodies. Firm tissue was excised with electrocautery with good hemostasis. The wound was explored circumferentially with blunt dissection and opening up of the tissue with electrocautery. The entire surface area of the wound was debrided down to healthy bleeding tissue. Bleeding points were then made hemostatic with electrocautery. The wound was again irrigated. After ensuring final hemostasis, the wound was packed with a normal saline-moistened wet-to-dry Kerlix. The wound was then dressed with ABD pads and tape. The patient tolerated the procedure well. She was awakened, the laryngeal mask was removed without difficulty, and the patient was taken to recovery room in stable condition with no apparent intraoperative complications. ��������������������������������������������� <ELECTRONICALLY SIGNED> ���������������������������������������� By: Beto Hurtado MD, FACS ��������������������������������������������� 06/15/18 2302 [id number] [id number] Beto Hurtado MD, FACS /nt
[2018-06-16 03:18] VITALS: BP 102/69
--- NOTE | 2018-06-16 03:58 | NUR ---
Pt. rested quietly at intervals during the night when checked on during frequent rounds. She c/o chronic pain to her abdomen and pain meds given (see emar) with no to little relief of pain. Brooke Gannon CUSTOMER SERVICE ADVOCATE aware (see orders). Dressing to her abdomen is dry and intact.
[2018-06-16 09:17] VITALS: BP 105/69
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
--- NOTE | 2018-06-16 14:37 | NUR ---
WOUND CARE AND ID FOLLOWING FOR IV ABX. CM FOLLOWING INDICATED WITH DC PLANNING.
[2018-06-16 15:34] VITALS: BP 134/83
--- NOTE | 2018-06-16 16:39 | NUR ---
TOWARDS POC PT A/O X4, VSS, AFEBRILE. PAIN MANAGED BY MEDS- SEE MAR. WOUND CARE AND DRESSING DONE BY WOUND TEAM. NO CONCERNS VOICED. WILL CONTINUE TO MONITOR.
[2018-06-16 19:33] VITALS: BP 91/58
[2018-06-17 03:40] VITALS: BP 104/71
--- NOTE | 2018-06-17 04:56 | NUR ---
Assumed care at 1845. Pt resting in bed. Shes still experiencing abdmn pain and request pain meds around the clock. Dressing is CDI. VSS. No identified needs at the moment. Call light within reach. Will continue to monitor.
[2018-06-17 08:44] VITALS: BP 97/59
--- NOTE | 2018-06-17 08:50 | NUR ---
WOUND FOLLOW UP: PT. WAS SEEN ON 06/16/[address] BENITEZ AND MYSELF. PT. SURGICAL DRESSING WAS CHANGED THIS VISIT. PT. IS STILL HAVING ALOT OF PAIN IN HER ABDOMEN AT THIS TIME. RECOMMENDATIONS: WOUND CARE TO ABDOMEN: GENTLY CLEANSE WITH WOUND CLEANSER OR NORMAL SALINE, APPLY XEROFORM TO WOUND BED, PACK LIGHTLY WITH SALINE MOIST GAUZE, COVER WITH ABD, SECURE WITH TAPE, COMPLETE CARES DAILY AND PRN. PT. AND STAFF NURSE WERE INSTRUCTED ON PLAN OF CARE.
[2018-06-17 09:58] LABS: HEMATOCRIT 30.6 % (37.0-47.0); HEMOGLOBIN 10.3 gm/dL (12.0-15.0); MCH 29.6 pg (26.0-34.0); MCHC 33.5 g/dL (28.0-37.0); MCV 88.4 fL (80.0-100.0); RBC 3.47 mil/uL (4.20-5.00); RDW 14.4 % (10.5-14.5); WBC 3.9 thou/uL (4.0-11.0)
[2018-06-17 10:15] LABS: CALCIUM 8.5 mg/dL (8.5-10.1); POTASSIUM 3.5 mmol/L (3.5-5.1)
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
[2018-06-17 13:32] VITALS: BP 101/62
--- NOTE | 2018-06-17 14:31 | NUR ---
WOUND FOLLOW UP: PT. WAS SEEN TODAY BY DR. BENITEZ AND MYSELF. PT. WOUND IS BEEFY RED WITH GRANULATION TISSUE PRESENT. DRESSING WAS CHANGED TODAY AND PT. TOLERATED BETTER THAN YESTERDAY. RECOMMENDATIONS: CONTINUE WITH CURRENT PLAN OF CARE. PT. AND STAFF NURSE WERE INSTRUCTED ON PLAN OF CARE.
--- NOTE | 2018-06-17 14:50 | NUR ---
CM SPOKE WITH CARE TEAM THIS DAY AND IT WAS INDICATED THAT PT IS PROGRESSING WELL TOWARD GOAL OF DISCHARGING HOME. PT HAD BEEN ON SERVICE WITH [facility] IN THE PAST. CM ASKED DC CURATOR OF MANUSCRIPTS TO FAX REFERRAL TO THEM FOR POSSIBLE ADMISSION. CM TO FOLLOW INDICATED WITH DC PLANNING.
--- NOTE | 2018-06-17 14:59 | NUR ---
TOWARDS POC PT A/O X4, VSS, AFEBRILE. PAIN MANAGED BY MEDS. ONETIME FENTANYL PRE WOUND CARE AND DRESSING CHANGED GIVEN ORDERED. DRESSING CHANGED BY WOUND TEAM. NO CONCERNS VOICED. WILL CONTINUE TO MONITOR.
--- NOTE | 2018-06-17 15:28 | NUR ---
FAXED REFERRAL TO [facility] SPOKE WITH VANESSA IN ADM. THEY CANNOT ACCEPT ANY NEW REFERRALS TIL 06/23 THEY ARE AT [facility]. DCP TO FOLLOW.
[2018-06-17] MEDS ORDERED: CEFDINIR300 MG PO (16:29)
[2018-06-17 16:48] VITALS: BP 101/62
--- NOTE | 2018-06-20 13:39 | HC ---
[facility] [place] [address] CONSULTATION Name: YING PARISI Room #: 449-I [facility] IN M.R.#: [id number] Admission: 06/13/18 ������������������ Attend Phys: Gilberto Erickson MD Discharge: 06/17/18 ������������������ Date of : 72 Report #: [id number] THIS REPORT FOR: //name// CC: Jaci Hurtado DATE OF SERVICE: 06/15/2018 CHIEF COMPLAINT: Surgical wound of abdominal wall. HISTORY OF PRESENT ILLNESS: This is a 47-year-old female patient with whom I am familiar with multiple abdominal foreign bodies after having fallen on a brush pile in January 2018. She has had multiple surgical explorations of the abdominal wall with removal of wood foreign bodies. She contacted me this weekend with having increased pain, drainage and having difficulty removing her dressing. She was unable to soak it free and presented to the Emergency Department due to the significant amount of pain and swelling she was having. She was admitted. She went to the operating room this morning with Dr. Hurtado who did an exploration of the traumatic abdominal wound with irrigation and mechanical debridement. No foreign bodies were seen. Some fibrous dense tissue was excised. A gauze dressing was placed. She is now in her room. She is feeling somewhat better. States that she has less pain than when she was admitted. PAST MEDICAL HISTORY: Positive for multiple previous abdominal procedures. She has had factor V Leiden deficiency, which required an IVC filter placement. She has had previous , history of anxiety, depression, previous appendectomy and ventral hernia repair. ALLERGIES: CODEINE, LEVAQUIN, EGGS, TRAMADOL, COMPAZINE, NUBAIN, TYLENOL. SOCIAL HISTORY: Negative for current alcohol or tobacco use. FAMILY HISTORY: Noncontributory. REVIEW OF SYSTEMS: CONSTITUTIONAL: The patient denies fever, chills, weight loss. NEUROLOGICAL: The patient denies focal weakness. ENT: The patient denies earache, nasal drainage, sore throat. CARDIOVASCULAR: The patient denies chest pain, palpitations, diaphoresis. PULMONARY: The patient denies cough or shortness of breath. GASTROINTESTINAL: The patient does complain of abdominal wall pain. Denies vomiting, diarrhea. Other systems in a 14-point review of systems are negative. [address] [address] CONSULTATION Name: YING PARISI Room #: 449-I [facility] IN ..#: [id number] Admission: 06/13/18 ������������������ Attend Phys: Gilberto Erickson MD Discharge: 06/17/18 ������������������ Date of : 72 Report #: [id number] PHYSICAL EXAMINATION: VITAL SIGNS: At this time include pulse 75, respiratory rate 16, blood pressure 119/76, temperature 97.7. GENERAL: This is a chronically ill-appearing female patient who appears to be in no distress. HEENT: Head is normocephalic. Nose and throat are clear. NECK: Supple. LUNGS: Clear. ABDOMEN: Soft. Bowel sounds present. MUSCULOSKELETAL: Surgical wound is intact. It was just placed approximately 1-2 hours ago in the operating room. Therefore, it is left in place today. NEUROLOGIC: The patient is alert and oriented and appropriate. LABORATORY DATA: Sodium 143, potassium 4.2, BUN 6, creatinine 0.8. White blood cell count is 3.7 with a hemoglobin of 10.8. CLINICAL IMPRESSION: 1. Surgical wound of the abdominal wall following multiple explorations for removal of wooden foreign bodies, now status post exploration and debridement with no foreign body seen today. 2. Factor V Leiden deficiency with previous placement of inferior vena cava filter. RECOMMENDATIONS: At this point in time, we will recommend saline moist gauze dressings. We will begin tomorrow. Continue with nutritional support. We will recommend followup in the wound care office in the next 7-10 days. I appreciate being asked to see her again in consultation. ��������������������������������������������� <ELECTRONICALLY SIGNED> ���������������������������������������� By: Melquiades Uribe MD ��������������������������������������������� 06/20/18 1339 1501 0019 Melquiades Uribe MD /nt
== END 2018-06-17 18:02 | disposition home health service (06) | DRG 853 ==
LOC: ER 18:29 → 4W 19:55 → EROBS 19:55 → 4W 21:44
PROVIDERS: Emergency Medicine; Internal Medicine; Nurse Practitioner Family; ADMIT Internal Medicine
PROC: 0JB80ZZ Excision of Abdomen Subcutaneous Tissue and Fascia, Open Approach (ICD-10-PCS; principal; 2018-06-15)
DX: A41.9 Sepsis, unspecified organism (principal); E43 Unspecified severe protein-calorie malnutrition; L03.311 Cellulitis of abdominal wall; D68.51 Activated protein C resistance; L02.211 Cutaneous abscess of abdominal wall; F11.20 Opioid dependence, uncomplicated; D68.9 Coagulation defect, unspecified; Z68.41 Body mass index [BMI] 40.0-44.9, adult; Y83.8 Other surgical procedures as the cause of abnormal reaction of the patient, or of later complication, without mention of misadventure at the time of the procedure; F32.9 Major depressive disorder, single episode, unspecified; G89.4 Chronic pain syndrome; F41.9 Anxiety disorder, unspecified; E66.9 Obesity, unspecified; D64.9 Anemia, unspecified; Z79.899 Other long term (current) drug therapy; Z88.5 Allergy status to narcotic agent; Z88.8 Allergy status to other drugs, medicaments and biological substances; Z88.6 Allergy status to analgesic agent; Z91.012 Allergy to eggs; Z88.1 Allergy status to other antibiotic agents; Z86.711 Personal history of pulmonary embolism; Y92.89 Other specified places as the place of occurrence of the external cause
CPT/HCPCS: 10040; 50010; 50101; 50386; 50417; 56526; 62110; 62900; 70005

== ENCOUNTER → 2018-07-06 | Outpatient (CLI) | payer OTHER | LOC: HYPER 06:47 | DX: T81.31XD Disruption of external operation (surgical) wound, not elsewhere classified, subsequent encounter (principal); M19.90 Unspecified osteoarthritis, unspecified site; F41.9 Anxiety disorder, unspecified; F32.9 Major depressive disorder, single episode, unspecified; Z86.711 Personal history of pulmonary embolism; Z79.01 Long term (current) use of anticoagulants; Y83.8 Other surgical procedures as the cause of abnormal reaction of the patient, or of later complication, without mention of misadventure at the time of the procedure ==

== ENCOUNTER → 2018-07-17 | Outpatient (CLI) | payer OTHER | LOC: HYPER 07-15 15:01 | DX: T81.31XD Disruption of external operation (surgical) wound, not elsewhere classified, subsequent encounter (principal); M19.90 Unspecified osteoarthritis, unspecified site; F32.9 Major depressive disorder, single episode, unspecified; F41.9 Anxiety disorder, unspecified; Z79.01 Long term (current) use of anticoagulants; Z86.711 Personal history of pulmonary embolism; Y83.8 Other surgical procedures as the cause of abnormal reaction of the patient, or of later complication, without mention of misadventure at the time of the procedure ==

== ENCOUNTER → 2018-09-30 | Outpatient (CLI) | payer OTHER | LOC: HYPER 07-27 06:50 | DX: T81.31XD Disruption of external operation (surgical) wound, not elsewhere classified, subsequent encounter (principal); M19.90 Unspecified osteoarthritis, unspecified site; F41.9 Anxiety disorder, unspecified; F32.9 Major depressive disorder, single episode, unspecified; Z79.01 Long term (current) use of anticoagulants; Z86.711 Personal history of pulmonary embolism; Y83.8 Other surgical procedures as the cause of abnormal reaction of the patient, or of later complication, without mention of misadventure at the time of the procedure ==

== ENCOUNTER → 2018-10-14 | Outpatient (CLI) | payer OTHER | LOC: HYPER 06:49 | DX: T81.31XD Disruption of external operation (surgical) wound, not elsewhere classified, subsequent encounter (principal); M19.90 Unspecified osteoarthritis, unspecified site; D64.9 Anemia, unspecified; F41.9 Anxiety disorder, unspecified; F32.9 Major depressive disorder, single episode, unspecified; Z79.01 Long term (current) use of anticoagulants; Z86.711 Personal history of pulmonary embolism; Y83.8 Other surgical procedures as the cause of abnormal reaction of the patient, or of later complication, without mention of misadventure at the time of the procedure ==

== ENCOUNTER → 2018-11-12 | Outpatient (CLI) | payer OTHER | LOC: HYPER 11-04 14:49 | DX: T81.31XD Disruption of external operation (surgical) wound, not elsewhere classified, subsequent encounter (principal); M19.90 Unspecified osteoarthritis, unspecified site; F41.9 Anxiety disorder, unspecified; F32.9 Major depressive disorder, single episode, unspecified; Z86.711 Personal history of pulmonary embolism; Z79.01 Long term (current) use of anticoagulants; Y83.8 Other surgical procedures as the cause of abnormal reaction of the patient, or of later complication, without mention of misadventure at the time of the procedure ==

== ENCOUNTER 2019-02-09 19:11 | Emergency (ER) | payer OTHER ==
[~2019-02-09] VITALS: Ht 167.6 cm; Wt 97.5 kg
[2019-02-09 20:05] LABS: BASOPHILS 0.3 % (0.0-2.0); HEMATOCRIT 36.7 % (37.0-47.0); HEMOGLOBIN 11.5 gm/dL (12.0-15.0); MCH 24.4 pg (26.0-34.0); MCHC 31.5 g/dL (28.0-37.0)
[2019-02-09 20:06] LABS: ABSOLUTE NEUTROPHILS 4.2 thou/uL (1.4-8.2); EOSINOPHILS 0.3 % (0.0-3.0); LYMPHOCYTES 19.1 % (24.0-44.0); MCV 77.4 fL (80.0-100.0); MONOCYTES 7.5 % (1.0-8.0); PLATELET COUNT 234 thou/uL (150-400); POLYS 72.8 % (36.0-66.0); RBC 4.74 mil/uL (4.20-5.00); WBC 5.7 thou/uL (4.0-11.0)
[2019-02-09 20:18] LABS: CALCIUM 9.4 mg/dL (8.5-10.1); CREATININE 0.8 mg/dL (0.6-1.0); POTASSIUM 3.5 mmol/L (3.5-5.1)
[2019-02-09 20:22] LABS: ALBUMIN 3.6 g/dL (3.4-5.0); TOTAL BILIRUBIN 0.5 mg/dL (<0.1-1.0); TOTAL PROTEIN 7.6 g/dL (6.4-8.2)
[2019-02-09 22:50] VITALS: BP 122/83
== END 2019-02-09 22:55 | disposition home or self-care (01) ==
LOC: ER 19:11
PROVIDERS: Emergency Medicine
DX: R10.11 Right upper quadrant pain (principal); R11.2 Nausea with vomiting, unspecified; R19.7 Diarrhea, unspecified; Z91.012 Allergy to eggs; Z88.1 Allergy status to other antibiotic agents; Z88.6 Allergy status to analgesic agent; Z88.8 Allergy status to other drugs, medicaments and biological substances

== ENCOUNTER 2019-02-12 19:38 | Emergency (ER) | payer OTHER ==
[~2019-02-12] VITALS: Ht 167.6 cm; Wt 95.7 kg
[2019-02-12 20:53] LABS: ABSOLUTE NEUTROPHILS 2.4 thou/uL (1.4-8.2); BASOPHILS 0.8 % (0.0-2.0); EOSINOPHILS 3.8 % (0.0-3.0); HEMATOCRIT 35.3 % (37.0-47.0); HEMOGLOBIN 11.3 gm/dL (12.0-15.0); LYMPHOCYTES 31.2 % (24.0-44.0); MCH 24.9 pg (26.0-34.0); MCHC 31.9 g/dL (28.0-37.0); MCV 77.9 fL (80.0-100.0); MONOCYTES 9.1 % (1.0-8.0); PLATELET COUNT 219 thou/uL (150-400); POLYS 55.1 % (36.0-66.0); RBC 4.53 mil/uL (4.20-5.00); RDW 18.3 % (10.5-14.5); WBC 4.3 thou/uL (4.0-11.0)
[2019-02-12 21:01] LABS: CALCIUM 9.1 mg/dL (8.5-10.1); CREATININE 0.8 mg/dL (0.6-1.0); POTASSIUM 3.4 mmol/L (3.5-5.1)
[2019-02-12 21:07] LABS: ALBUMIN 3.6 g/dL (3.4-5.0); TOTAL BILIRUBIN 0.3 mg/dL (<0.1-1.0); TOTAL PROTEIN 7.4 g/dL (6.4-8.2)
[2019-02-12 21:42] LABS: URINE BILIRUBIN NEGATIVE (Negative); URINE BLOOD 1+ (Negative); URINE CLARITY CLEAR; URINE COLOR YELLOW; URINE GLUCOSE-RANDOM* NEGATIVE (Negative); URINE KETONES 1+ (Negative); URINE LEUKOCYTES-REFLEX TRACE (Negative); URINE NITRITE-REFLEX NEGATIVE (Negative); URINE PROTEIN (DIPSTICK) NEGATIVE (Negative); URINE UROBILINOGEN 0.2 E.U./dl (0.2-1.0)
[2019-02-12 21:52] LABS: SQUAMOUS 0-3 Few /LPF (0-3)
[2019-02-12 21:53] LABS: BACTERIA-REFLEX 1-9 Few /HPF (None Seen); CASTS None Seen /LPF (None Seen); CRYSTALS None Seen /LPF (None Seen); URINE RBC 0-2 Rare /HPF (0-2); URINE WBC-REFLEX 0-5 Rare /HPF (0-5)
[2019-02-12] MEDS ORDERED: ZOFRAN ODT4 MG DISSOLVE (22:29)
[2019-02-12 22:43] VITALS: BP 106/85
== END 2019-02-12 22:43 | disposition home or self-care (01) ==
LOC: ER 19:38
PROVIDERS: Physician Assistant
DX: G89.29 Other chronic pain (principal); R10.13 Epigastric pain; R10.31 Right lower quadrant pain; R11.2 Nausea with vomiting, unspecified; Z86.711 Personal history of pulmonary embolism; Z98.890 Other specified postprocedural states; Z88.5 Allergy status to narcotic agent; Z88.1 Allergy status to other antibiotic agents; Z88.6 Allergy status to analgesic agent; Z88.8 Allergy status to other drugs, medicaments and biological substances

== ENCOUNTER 2019-02-16 10:17 | Inpatient (IN) | payer OTHER ==
[~2019-02-16] VITALS: Ht 167.6 cm; Wt 95.7 kg
[2019-02-16 11:40] VITALS: BP 125/87
[2019-02-16 13:35] LABS: HEMATOCRIT 36.1 % (37.0-47.0); HEMOGLOBIN 11.2 gm/dL (12.0-15.0); MCH 24.5 pg (26.0-34.0); MCHC 31.1 g/dL (28.0-37.0); MCV 78.7 fL (80.0-100.0); RBC 4.58 mil/uL (4.20-5.00); RDW 17.7 % (10.5-14.5); WBC 3.4 thou/uL (4.0-11.0)
[2019-02-16 13:52] LABS: INR 1.1; PROTIME 11.2 Seconds (9.3-11.4)
[2019-02-16 13:57] LABS: ALBUMIN 3.5 g/dL (3.4-5.0); CREATININE 0.8 mg/dL (0.6-1.0); POTASSIUM 3.5 mmol/L (3.5-5.1); TOTAL BILIRUBIN 0.3 mg/dL (<0.1-1.0); TOTAL PROTEIN 7.2 g/dL (6.4-8.2)
[2019-02-16 14:30] VITALS: BP 113/80
--- NOTE | 2019-02-16 16:14 | NUR ---
PT ARRIVED TO UNIT AT APPROX 1130. PT IS ALERT AND ORIENTED X4, VSS, AMBULATORY. ABLE TO MAINTAIN 02 SAT >90 ON RA. COMPLETED ADMISSION. CONSENTS SIGNED. PT DENIES SOA, EVEN NON LABORED BREATHING. PT COMPLAINS OF PAIN THAT IS PARTIALLY RELIEVED WITH PRN PAIN MEDICATIONS. DENIES CURRENT CONCERNS. WILL CONTINUE TO MONITOR.
[2019-02-16 20:55] VITALS: BP 106/63
[2019-02-17] VITALS (9 sets, daily range): BP systolic 87–1247; BP diastolic 53–81
--- NOTE | 2019-02-17 04:32 | NUR ---
PT IS A/O X4.PT IS UP AD BABS.IV ACCESS LAC AND SL.REDNESS ON ABD SURGERY SCAR, PT WAS NPO FROM MIDNIGHT.PAIN MGT WITH OXYCODONE.PT WILKES SSURGERY TODAY .CONTINUE TO MONITOR
--- NOTE | 2019-02-17 06:28 | NUR ---
PT C/O OF PAIN AND DR LOGAN PAGE AND ORDERED OXYCODONE PO GIVEN WITH SIP OF WATER.
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
[2019-02-17 10:59] LABS: AMP/METHAMP Negative (Negative); BARBITURATES Negative (Negative); BENZODIAZEPINES Negative (Negative); COCAINE Negative (Negative); METHADONE Negative (Negative); OPIATES POSITIVE (Negative); PCP Negative (Negative)
--- NOTE | 2019-02-17 13:59 | NUR ---
Consult [id number] was completed. Patient was visited and spiritual needs at the time were met. She requested her Engineering Associate also be contacted. I contacted her trim setter helper. He asked that I commuicate back with her that he would try to come visit her today and if not it woud be tomorrow. This concrete panel installer did let the patient know. She was pleased and encouraged.
--- NOTE | 2019-02-17 19:53 | NUR ---
PT A&OX4, VSS, PAIN IN ABD. PATIENT HAD SURGERY TODAY, DRESSING REMAINS IN PLACE, ABD SOFT, BOWELS HYPOACTIVE. PATIENT HAS ICE PACK IN PLACE AND ABLE TO USE PILLOW TO SPLINT SHE GETS UP TO GO TO BATHOOM STANDBY ASSIST. PATIENT HAS VOIDED. PATIENTS MAIN CONCERN IS PAIN CONTROL, AWAITING CALL BACK FROM DOCTOR. ORDERS GIVEN TO NOT REMOVE DRESSING FOR ATLEAST 7DAYS. NO SIGNS OF DISTRESS, PATIENT TOLERATING DIET, WILL CONTINUE TO MONITOR.
[2019-02-18 03:56] VITALS: BP 115/82
--- NOTE | 2019-02-18 05:16 | NUR ---
PT IS A/O X4 .PT IS UP AD BABS. PT WALKS WITH SPLINT ON ABDOMEN.PT ASKED FOR IV PAIN MEDICATION,DR LOGAN PAGED AND REFUSED TO ORDER IV MEDICATION.PT IS ON OXYCODONE WITH PARTIAL PAIN RELIEVE.INCISION SITE IS COVERED AND WOUND IS C/D/I. CONTINUE POC
[2019-02-18 05:40] LABS: HEMATOCRIT 34.3 % (37.0-47.0); MCH 25.3 pg (26.0-34.0); MCHC 31.9 g/dL (28.0-37.0); MCV 79.4 fL (80.0-100.0); RBC 4.32 mil/uL (4.20-5.00); RDW 17.8 % (10.5-14.5); WBC 8.6 thou/uL (4.0-11.0)
[2019-02-18 06:01] LABS: ALBUMIN 3.2 g/dL (3.4-5.0); CALCIUM 8.7 mg/dL (8.5-10.1); CREATININE 0.9 mg/dL (0.6-1.0); POTASSIUM 4.2 mmol/L (3.5-5.1); TOTAL BILIRUBIN 0.3 mg/dL (<0.1-1.0); TOTAL PROTEIN 6.9 g/dL (6.4-8.2)
[2019-02-18 08:33] VITALS: BP 110/77
--- NOTE | 2019-02-18 13:47 | NUR ---
PT ADMITTED RELATED TO ABDOMINAL PAIN. CM REVIEWED CHART AND SPOKE WITH CARE TEAM. CM MET WITH PT AT BEDSIDE THIS DAY. PT IS A&O X4. CM MET WITH PT AT BEDSIDE THIS DAY. PT IS A&O X4. CM ROLE INTRODUCED. PT INDICATED SHE LIVES IN A DUPLEX ALONE WITH NO STEPS TO ENTER AND NO STEPS INSIDE. 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 PT INDICATED SHE HAD USED [facility] IN THE PAST AND MOST RECENTLY HAD [facility]. SHE STATED THAT SHE WAS INTERESTED IN HOMEMAKER SERVICES THROUGH [facility]. CM INDICATED THAT NUMBER TO INITIATE ASSESSMENT FOR SERVICES WOULD BE PUT INTO HER DC PAPERWORK. PT WOULD LIKE TO USE [facility] AGAIN SHOULD SHE NEED HH AGAIN UPON DC. CM TO FOLLOW INDICATED WITH DC PLANNING.
[2019-02-18 14:07] VITALS: BP 103/64
[2019-02-18 19:40] VITALS: BP 108/65
--- NOTE | 2019-02-18 21:37 | NUR ---
PT A&OX4, VSS, PAIN IN ABDOMEN. PAIN MANAGED WITH MEDICATION. PATIENT TOLERATING DIET. NO SIGNS OF DISTRESS, WILL CONTINUE TO MONITOR.
--- NOTE | 2019-02-19 04:26 | NUR ---
Pt. rested quietly during the night when checked on during frequent rounds. She did c/o abdominal pain and po pain medication given (see emar) with some relief noted. Dressing is dry and intact to abdomen.
[2019-02-19 08:00] VITALS: BP 115/68
[2019-02-19 15:00] VITALS: BP 108/63
--- NOTE | 2019-02-19 15:07 | PATH ---
[facility] [place] [address] [address] [place] [address] PATHOLOGY RPT PROCEDURE Name: YING ROSALES Room #: 463-P ADM IN M.R.#: [id number] Admission: 02/16/19 Date of : 72 Discharge: Report #: [id number] Path Case #: [id number] [facility] Accession Number: [id number] . 01 Material submitted: . PART A: abdomen - FOREIGN BODY. Modifiers: wall PART B: abdomen - ABDOMINAL SKIN SEBCUANEOUS TISSUE. Modifiers: wall . 01 Clinical history: . Abdominal wound pain . 02 Diagnosis: A. Foreign body, abdomen, removal (gross examination only): - A 2.2 cm colorless transparent material. . B. Skin and subcutaneous tissue, abdominal skin, removal: - Skin and subcutaneous tissue showing hemorrhage, hemosiderin-laden macrophages as well as focal histiocytic/macrophage and giant cell reaction consistent with reparative changes. . (IUV:mml; 02/19/2019) QLM 02/19/2019 1303 Local . 02 Electronically signed: . Nelli Oliva MD, Pathologist NPI- [id number] . 01 Gross description: . A. The specimen is received in fresh labeled "Ying Rosales, foreign body". The specimen source is not listed on the container or the requisition. The source is confirmed with the provider as "abdomen". Received is a shard of clear, colorless material measuring 2.2 x 0.5 x 0.2 cm in greatest dimensions. The specimen displays a small amount of dried blood on the exterior surface. The density and "bounciness" of the specimen suggests a plastic material, as opposed to glass. Gross photographs are taken. Tissue is not submitted. . B. Received in formalin labeled "Ying Rosales, abdominal skin subcutaneous tissue is an elongate segment of pink-fontenot skin with attached underlying firm, veloz-fontenot fibrous tissue and yellow adipose tissue measuring 21.9 x 4.3 cm and excised to a depth of up to 5.4 cm. The skin surface displays a central furrow that extends the entire major axis of the specimen. No distinct epidermal surface lesions or nodules are identified grossly. Serial sectioning reveals an area of pale white-fontenot to pink-fontenot soft tissue underlying the epidermal surface furrow that extends deep to the margin for the entire length of the specimen. This tissue is largely surrounded on both sides by lobular, yellow adipose tissue. A portion of [address] [address] PATHOLOGY RPT PROCEDURE Name: YING ROSALES Room #: 463-P ADM IN M.R.#: [id number] Admission: 02/16/19 Date of : 72 Discharge: Report #: [id number] Path Case #: [id number] the fontenot soft tissue underlying the skin palpates as more firm at one aspect, and sectioning through this tissue reveals focal deposits of pastel pale yellow-fontenot material measuring up to 0.4 cm on cut surface. An additional focus of this material is noted in the surrounding adipose tissue, measuring 0.3 cm on cut surface. Home Stager sections of the firm, fontenot tissue and attached skin are submitted in cassettes B1 through B3, to representatively include the deposits of granular, yellow-fontenot material. Additional software support representative sections of the skin furrow and attached underlying pink-fontenot soft tissue are submitted in cassettes B4 and B5. ([facility]; 02/18/2019) XAK/XAK 02/18/2019 0849 Local . Pathologist provided ICD-10: L98.9, R10.9 . 02 CPT . 526416, 618969 Specimen Comment: A courtesy copy of this report has been sent to Specimen Comment: [phone], . Specimen Comment: Report sent to / DR PARK Performed at: [address], [place] [id number] MD Orlando Rashid MD Phone: [phone] Performed at: [address] [id number] MD Nelli Oliva MD Phone: [phone]
--- NOTE | 2019-02-19 19:59 | NUR ---
PATIENT DOING WELL TODAY. MEDICATED Q4H FOR ABD PAIN AND HELPFUL. UP AD BABS AND TOLERATING WELL. EATING SMALL FREQUENT MEALS. STATES THE ONLY THING THAT TASTES GOOD IS [employer]ENRIET[employer] CR[employer]ERS. ABD DRESSING REMAINS C/D/I. VERY PLEASANT AND COOPERATIVE PATIENT.
[2019-02-19 20:28] VITALS: BP 114/70
--- NOTE | 2019-02-20 05:34 | NUR ---
PATIENT AOX4 MAKES NEEDS KNOWN. ABD DRESSING C/D/I. PAIN CONTROLLED THIS SHIFT. PATIENT IS UP AT BABS.PATIENT IN BED ASLEEP AT THIS TIME BREATHING REGULAR AND UNLABOURED.
[2019-02-20 08:00] VITALS: BP 120/79
[2019-02-20 15:00] VITALS: BP 131/82
--- NOTE | 2019-02-20 19:52 | NUR ---
Assumed pt care at 7am.Assessment completed.vss.Pt up adlib inthe room with steady gait.Surgical drsg to abdomen c/d/i. Medicated pt with pain med as ordered with relief.Pt has good appetite.No further c/o.Will continue to monitor.
[2019-02-20 20:15] VITALS: BP 122/76
[2019-02-21 07:59] VITALS: BP 106/77
--- NOTE | 2019-02-21 09:28 | NUR ---
PROGRESS PT A/O X 4 UP AD BABS PAIN CONTROLLED WITH OXYCODONE TAKING Q4HRS VOIDING QS, ABDOMINAL WOUND COVERED BY SURGICAL DRSG REMAINS C/D/I ORDERS NOT TO REMOVE UNTIL SURGEON CHANGES. CONTINUE POC.
--- NOTE | 2019-02-21 10:46 | NUR ---
Assessment completed.vss.Pt in and out of bed to br independently.Pt c/o abdominal pain rated 6/10.Med given as ordered with relief.Surgical drsg to abdomen c/d/i.No further c/o at present.Will continue to monitor.
[2019-02-21 14:57] VITALS: BP 111/70
[2019-02-21 19:42] VITALS: BP 93/63
--- NOTE | 2019-02-22 02:52 | NUR ---
PATIENT AOX4 MAKES NEEDS KNOWN.PATIENT IS UP AT BABS. PATIENT HAS BEEN NPO SINCE MIDNIGHT FOR EGD IN THE AM. PATIENT DRESSING ON THE ABD IS C/D/I. PAIN CONTROLLED THIS SHIFFT. PATIENT IN BED ASLEEP AT THIS TIME BREATHING REGULAR AND UNLABOURED.
[2019-02-22 08:00] VITALS: BP 121/77
[2019-02-22] MEDS ORDERED: FENTANYL1 EAC1 TRANSDERM (12:31)
[2019-02-22] MEDS ORDERED: NEURONTIN300 MG PO (12:33)
[2019-02-22] MEDS ORDERED: PROTONIX 20 MG20 MG PO (12:33)
[2019-02-22 13:04] VITALS: BP 121/77
--- NOTE | 2019-02-22 13:21 | NUR ---
DISCHARGE PLANNING. POSSIBLE DISCHARGE TODAY. HOME HEALTH RECOMMENDED AT DISCHARGE. PATIENT REFERRAL FAXED TO [facility]. CALL RECEIVED FROM DUANE PANIAGUA INTAKE. [facility] DOES NOT CONTRACT WITH [facility]. RECOMMENDS TRYING [facility], [facility], OR [facility]. UNIT SW NOTIFIED.
[2019-02-22 13:27] VITALS: BP 121/77
--- NOTE | 2019-02-22 13:28 | NUR ---
DISCHARGE NOTE: SW reviewed chart and spoke with nursing and attending physician. Pt had EGD earlier today and is medically stable for discharge home today. SW notified that [facility] is out of network with pt's insurance. [facility], [facility] and [facility] are in-network. SW met with pt at bedside to provide update and discuss discharge plan. Pt verbalized understanding and is unsure if she will need HH. Pt would prefer [facility] if needed. Pt's PCP is Dr. Gonzalez. No orders for HH services. Discharge orders/summary completed. Pt has transportation home. Pt encouraged to contact PCP for HH orders if needed. No additional SW needs identified at this time, but is available to assist should needs arise.
--- NOTE | 2019-02-22 13:57 | NUR ---
Assumed pt care at 7am.Pt in bed waiting to be sweet pickle maker for egd in operating room.Received call from tavern car attendant and updates given.Around 0950,pt left per wc to gi lab and returned 2 hours later.Lunch given upon returning to unit and well tolerated.Dr Gonzalez here and dc order noted.Dc summary completed and reviewed with pt. copy given and piv dc'd prior to pt dc home at 1400 ambulatory.
--- NOTE | 2019-02-23 09:08 | D ---
[facility] [place] [address] [place] [address] DISCHARGE SUMMARY Name: YING PARISI Room #: 463-P [facility] IN M.R.#: [id number] Admission: 02/16/19 Attend Phys: Eleno Gonzalez MD Discharge: 02/22/19 Date of : 72 Report #: [id number] THIS REPORT FOR: //name// CC: Eleno Gonzalez FINAL DIAGNOSES: 1. Chronic open abdominal wound. 2. Chronic abdominal pain. 3. Narcotic dependence. 4. Anxiety, depression. HOSPITAL COURSE: The patient was admitted for surgical intervention of a chronic open abdominal wound. Dr. Hurtado took her to the operating room, debrided the area and surgically closed it. Please see his operative note for findings. Dr. Pratt saw her in consultation in regards to anxiety and depression and recommended continued medication with the addition of Neurontin for neuropathic and chronic abdominal pain and plans for outpatient counseling. She had no other medical complications. A previous CT outpatient was reviewed again, which showed fullness in the duodenum. GI was consulted and EGD was performed. Unfortunately, because of her previous gastric bypass, they were unable to enter the duodenum, but the gastric findings that were visible were unremarkable. Plans will be as an outpatient, referred to [facility] for an ultrasound-guided EGD procedure to assess the fullness is noted on CT. I talked with her at length in regards to her narcotics and will continue to work as an outpatient towards weaning down and off these medications, now that her abdominal wound is closed. PHYSICAL EXAMINATION: GENERAL: On the day of discharge, she was awake and alert and in no distress. She had undergone a procedure without incident: VITAL SIGNS: Stable and she was walking the st independently. LUNGS: Clear. HEART: Regular. ABDOMEN: Soft, normoactive bowel sounds with some postop dressing in place. EXTREMITIES: No edema. DISPOSITION: She will be discharged to home with diet and activity as tolerated, resume all home medications plus Neurontin 300 mg t.i.d., Follow up with me in 4 weeks and follow up with Dr. Hurtado later this week or early next week for postop check. <ELECTRONICALLY SIGNED> By: Eleno Gonzalez MD 02/23/19 0908 1248 1316 Eleno Gonzalez MD /nt
== END 2019-02-22 16:20 | disposition home or self-care (01) | DRG 571 ==
LOC: 4W 10:17
PROVIDERS: ADMIT Internal Medicine Geriatric Medicine
PROC: 0JB80ZZ Excision of Abdomen Subcutaneous Tissue and Fascia, Open Approach (ICD-10-PCS; principal; 2019-02-17)
PROC: 0DJ08ZZ Inspection of Upper Intestinal Tract, Via Natural or Artificial Opening Endoscopic (ICD-10-PCS; 2019-02-22)
DX: S30.851A Superficial foreign body of abdominal wall, initial encounter (principal); D68.51 Activated protein C resistance; D68.59 Other primary thrombophilia; F11.20 Opioid dependence, uncomplicated; F41.8 Other specified anxiety disorders; R10.9 Unspecified abdominal pain; F41.9 Anxiety disorder, unspecified; G89.4 Chronic pain syndrome; F32.9 Major depressive disorder, single episode, unspecified; Z86.711 Personal history of pulmonary embolism; Z95.828 Presence of other vascular implants and grafts; Z88.6 Allergy status to analgesic agent; Z88.8 Allergy status to other drugs, medicaments and biological substances; Z79.01 Long term (current) use of anticoagulants; Z88.1 Allergy status to other antibiotic agents; Z91.012 Allergy to eggs; Z82.49 Family history of ischemic heart disease and other diseases of the circulatory system; Z83.3 Family history of diabetes mellitus; K31.9 Disease of stomach and duodenum, unspecified; X58.XXXA Exposure to other specified factors, initial encounter; Y93.89 Activity, other specified; Y92.89 Other specified places as the place of occurrence of the external cause; Y99.8 Other external cause status
CPT/HCPCS: 10047; 50010; 50101; 50386; 50417; 56524; 56526; 57108; 57119; 57120; 57192; 62110; 62900; 70005

== ENCOUNTER → 2019-05-18 | Outpatient (CLI) | payer OTHER ==
[~2019-05-18] MED LIST changes: +NEURONTIN 300M300 M2 PO; +NEURONTIN 400400 M1 PO; +NEURONTIN300 MG PO; +OXYCODONE HCL30 MG PO; +PROTONIX 20 MG20 M1 PO; +PROTONIX 20 MG20 MG PO; +REGLAN 5 MG TAB5 MG PO
== END ==
LOC: CAT 04-22 09:17
DX: N20.0 Calculus of kidney (principal); N28.1 Cyst of kidney, acquired; Z98.890 Other specified postprocedural states; Z90.49 Acquired absence of other specified parts of digestive tract

== ENCOUNTER 2019-05-21 15:05 | Inpatient (IN) | payer OTHER ==
[~2019-05-21] VITALS: Ht 167.6 cm; Wt 95.3 kg
--- NOTE | ~2019-05-21 | D ---
[facility] [address] [place] [address] DISCHARGE SUMMARY Name: YING PARISI Room #: 459-P [facility] IN M.R.#: [id number] Admission: 05/21/19 Attend Phys: Eleno Gonzalez MD Discharge: 05/24/19 Date of : 72 Report #: [id number] THIS REPORT FOR: //name// CC: Eleno Gonzalez DATE OF SERVICE: 05/24/2019 FINAL DIAGNOSIS: Abdominal pain. HOSPITAL COURSE: The patient was admitted with abdominal pain and concern for nausea and vomiting. X-ray was fairly unremarkable. She was treated conservatively with bowel rest, IV fluids and her usual home medication. CT as an outpatient noted a decreasing fluid collection in the left abdominal wall. I spoke to the Infectious Diseases. He saw her and we felt this was representing a resolving postoperative seroma related to her last operative procedure in the fall of 2018 where her midline abdominal wound was surgically closed. She had no fever and no elevated white count and therefore, no plans currently for aspiration or drainage. On the day of discharge, she was tolerating full liquids. Abdomen was soft and normoactive bowel sounds. Slightly tender on the left flank. No rebound or guarding and she was alert and oriented. DISPOSITION: She is being discharged to home to advance diet as tolerated. She has an outpatient appointment with the surgical team at [facility] tomorrow regarding her chronic issues. She will resume all usual medications. Follow up with me in 1 week. By: [id number] Eleno Gonzalez MD /mike
[~2019-05-21 15:05] MED LIST changes: -NEURONTIN 300M300 M2 PO; -NEURONTIN 400400 M1 PO; -OXYCODONE HCL30 MG PO; -PROTONIX 20 MG20 M1 PO; -REGLAN 5 MG TAB5 MG PO
[2019-05-21 16:03] LABS: HEMATOCRIT 31.3 % (37.0-47.0); HEMOGLOBIN 9.8 gm/dL (12.0-15.0); MCH 23.6 pg (26.0-34.0); MCHC 31.4 g/dL (28.0-37.0); MCV 75.2 fL (80.0-100.0); RBC 4.16 mil/uL (4.20-5.00); RDW 18.4 % (10.5-14.5); WBC 3.7 thou/uL (4.0-11.0)
[2019-05-21 16:29] LABS: ALBUMIN 3.2 g/dL (3.4-5.0); CALCIUM 8.4 mg/dL (8.5-10.1); CREATININE 0.7 mg/dL (0.6-1.0); POTASSIUM 3.5 mmol/L (3.5-5.1); TOTAL BILIRUBIN 0.4 mg/dL (<0.1-1.0); TOTAL PROTEIN 6.9 g/dL (6.4-8.2)
[2019-05-21 16:38] LABS: % SATURATION 4 % (20-39); IRON 16 ug/dL (50-170); TIBC 372 ug/dL (250-450)
[2019-05-21] MEDS ORDERED: NEURONTIN 300M300 M2 PO ×2 (16:41)
--- NOTE | 2019-05-21 18:40 | NUR ---
ASSUIMED CARE OF PT UPON ARRIVAL TO UNIT AT 1630. PT AOX4 IN NO ACUTE DISTRESS. COMPLAINING OF ABD PAIN AND NAUSEA - FINDING SOME RELIEF WITH MEDS. DIAGNOSTICS ORDERED. UP AD BABS W/ STEADY GAIT. IVF INFUSING PER ORDER. NEW IV PLACED RIGHT HAND. WILL CONT TO MONITOR.
[2019-05-21 19:35] VITALS: BP 132/76
[2019-05-22 02:07] LABS: URINE BILIRUBIN NEGATIVE (Negative); URINE BLOOD NEGATIVE (Negative); URINE CLARITY CLEAR; URINE COLOR YELLOW; URINE GLUCOSE-RANDOM* NEGATIVE (Negative); URINE KETONES NEGATIVE (Negative); URINE LEUKOCYTES TRACE (Negative); URINE NITRITE NEGATIVE (Negative); URINE PROTEIN (DIPSTICK) NEGATIVE (Negative); URINE SPECIFIC GRAVITY 1.015 (1.005-1.035); URINE UROBILINOGEN 0.2 E.U./dl (0.2-1.0)
[2019-05-22 02:15] LABS: AMP/METHAMP Negative (Negative); BARBITURATES Negative (Negative); BENZODIAZEPINES Negative (Negative); COCAINE Negative (Negative); METHADONE Negative (Negative); OPIATES POSITIVE (Negative); PCP Negative (Negative)
[2019-05-22 07:05] VITALS: BP 111/74
--- NOTE | 2019-05-22 08:51 | NUR ---
progress pt up ad bradley voiding qs vss, reports abdominal pain at an 8 out of 0/10 taking oxycodone given q4 hrs prn with effect pt sleeps after no bm this shift tolerating clears continue to monitor.
[2019-05-22 14:00] VITALS: BP 110/70
--- NOTE | 2019-05-22 16:02 | NUR ---
PT ALERT AND ORIENTED TIMES FOUR. VSS, IVF INFUSING PER ORDER. PT C/O PAIN AND NAUSEA MEDICATION FOR BOTH GIVEN WITH GOOD RELEIF. PT TOLERATES CLEAR LIQUID DIET. PT UP AB BABS WITH STEADY GAIT. WILL CONTINUE TO MONITOR.
[2019-05-22 19:33] VITALS: BP 111/73
--- NOTE | 2019-05-23 04:38 | NUR ---
Pt. rested quietly at intervals during the night when checked on during frequent rounds. She c/o nausea and iv zofran given (see emar) with relief. Pt. also c/o abdominal pain and was given po pain meds (see emar) with some relief noted.
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
[2019-05-23 08:00] VITALS: BP 101/60
[2019-05-23 15:00] VITALS: BP 107/41
--- NOTE | 2019-05-23 18:24 | NUR ---
PT A&OX4, VSS, PAIN IN ABDOMEN. PATIENT CONTINUES TO HAVE NAUSEA. MEDICATION GIVEN ORDERED. PATIENT DOES GO FOR WALKS AROUND HALLWAY. NO SIGNS OF DISTRESS. IV IN RIGHT HAND WITH FLUID RUNNING ORDERED. PATIENT REMAINS ON CLEAR LIQUIDS AND ABLE TO HAVE CRACKERS PER DOCTOR. [facility].
[2019-05-23 20:00] VITALS: BP 105/67
--- NOTE | 2019-05-24 01:25 | NUR ---
PT CARE ASSUMED WITH PT IN BED WATCHING TV.PT IS UP AD BABS.PT IS A/O X4.PT C/O OF PAIN AND PAIN MANAGEMENT WITH OXYCODONE WITH PARTIAL RELIEF.PT IS ON CLEAR LIQUID DIET AND CAN HAVE CRACKERS TOLERATED.PT ON ON REGLAN AND ZOFRAN FOR NAUSEA MANAGEMENT.PT PENDING OCCULT BLOOD DUE TO NO STOOL SAMPLE.WILL CONTINUE TO MONITOR PER POC
[2019-05-24 07:22] VITALS: BP 111/53
--- NOTE | 2019-05-24 12:10 | NUR ---
PT A&OX4, VSS, PAIN IN ABDOMEN. PATIENT CONTINUES TO HAVE NAUSEA. PATIENT HASNT HAD BOWEL MOVEMENT SINCE ADMIT. MEDICATION GIVEN TO COMBAT THESE ISSUES. PATIENT RESTS IN BED MOSTLY. BOWEL SOUNDS ACTIVE, ABDOMEN SOFT. NO SIGNS OF DISTRESS. WILL CONTINUE TO MONITOR.
--- NOTE | 2019-05-24 12:12 | NUR ---
PT ADMITTED RELATED TO ABD PAIN. CM REVIEWED CHART AND SPOKE WITH CARE TEAM. CM MET WITH PT AT BEDSIDE THIS DAY. PT IS A&O X4. CM ROLE INTRODUCED. PT INDICATED SHE LIVES IN A DUPLEX ALONE WITH NO STEPS TO ENTER AND NO STEPS INSIDE. 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 PT INDICATED NO DME. PT HAD BEEN [facility] SERVICE WITH [facility] IN THE PAST. PT INDICATED SHE WOULD BE RECEPTIVE TO HH IF RECOMMENDED UPON DC AND WOULD USE [facility]. IT IS ANTICPATED THAT SHE WILL RETURN HOME WITH NO NEEDS ONCE MEDICALLY STABLE. CM TO FOLLOW INDICATED WITH DC PLANNING.
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
[2019-05-24] MEDS ORDERED: PROTONIX 20 MG20 M1 PO ×2 (12:49)
[2019-05-24] MEDS ORDERED: NEURONTIN 400400 M1 PO ×2 (12:49)
[2019-05-24] MEDS ORDERED: OXYCODONE HCL30 MG PO ×2 (12:49)
[2019-05-24] MEDS ORDERED: REGLAN 5 MG TAB5 MG PO ×2 (12:50)
[2019-05-24 13:05] VITALS: BP 111/53
--- NOTE | 2019-05-24 16:40 | NUR ---
CARE TEAM INDICATED THAT PT IS MEDICALLY STABLE TO DC HOME THIS DAY. PT IS DISCHARGING HOME WITH NO NEEDS. NO OTHER CM INTERVENTION INDICATED. CASE CLOSED.
== END 2019-05-24 13:57 | disposition home or self-care (01) | DRG 392 ==
LOC: 4W 15:05
PROVIDERS: ADMIT Internal Medicine Geriatric Medicine
DX: R10.9 Unspecified abdominal pain (principal); D68.51 Activated protein C resistance; R19.00 Intra-abdominal and pelvic swelling, mass and lump, unspecified site; F32.9 Major depressive disorder, single episode, unspecified; F41.9 Anxiety disorder, unspecified; F43.10 Post-traumatic stress disorder, unspecified; Z90.49 Acquired absence of other specified parts of digestive tract; Z88.8 Allergy status to other drugs, medicaments and biological substances; Z86.711 Personal history of pulmonary embolism; Z86.718 Personal history of other venous thrombosis and embolism; Z88.5 Allergy status to narcotic agent; Z79.01 Long term (current) use of anticoagulants; Z95.828 Presence of other vascular implants and grafts
CPT/HCPCS: 10047

== ENCOUNTER 2019-05-29 16:04 | Inpatient (IN) | payer OTHER ==
[~2019-05-29] VITALS: Ht 167.6 cm; Wt 93.9 kg
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
[2019-05-29 16:04] VITALS: BP 138/98
[~2019-05-29 16:04] MED LIST changes: +NEURONTIN 300M300 M2 PO; +NEURONTIN 400400 M1 PO; +OXYCODONE HCL30 MG PO; +PROTONIX 20 MG20 M1 PO; +REGLAN 5 MG TAB5 MG PO
[2019-05-29 16:51] LABS: ABSOLUTE NEUTROPHILS 1.7 thou/uL (1.4-8.2); BASOPHILS 1.2 % (0.0-2.0); EOSINOPHILS 5.6 % (0.0-3.0); HEMATOCRIT 34.4 % (37.0-47.0); HEMOGLOBIN 10.3 gm/dL (12.0-15.0); LYMPHOCYTES 33.2 % (24.0-44.0); MCH 22.8 pg (26.0-34.0); MCV 76.1 fL (80.0-100.0); MONOCYTES 9.8 % (1.0-8.0); PLATELET COUNT 161 thou/uL (150-400); POLYS 50.2 % (36.0-66.0); RBC 4.53 mil/uL (4.20-5.00); RDW 18.5 % (10.5-14.5); WBC 3.3 thou/uL (4.0-11.0)
[2019-05-29 16:52] LABS: CALCIUM 8.4 mg/dL (8.5-10.1); CREATININE 0.8 mg/dL (0.6-1.0); POTASSIUM 3.6 mmol/L (3.5-5.1)
[2019-05-29 16:59] LABS: ALBUMIN 3.2 g/dL (3.4-5.0); TOTAL BILIRUBIN 0.3 mg/dL (<0.1-1.0); TOTAL PROTEIN 7.2 g/dL (6.4-8.2)
[2019-05-29 18:40] LABS: URINE BILIRUBIN NEGATIVE (Negative); URINE BLOOD NEGATIVE (Negative); URINE CLARITY CLEAR; URINE COLOR YELLOW; URINE GLUCOSE-RANDOM* NEGATIVE (Negative); URINE KETONES NEGATIVE (Negative); URINE LEUKOCYTES-REFLEX TRACE (Negative); URINE NITRITE-REFLEX NEGATIVE (Negative); URINE PROTEIN (DIPSTICK) NEGATIVE (Negative); URINE UROBILINOGEN 0.2 E.U./dl (0.2-1.0)
[2019-05-29 19:41] VITALS: BP 103/62
[2019-05-29 21:03] VITALS: BP 109/83
--- NOTE | 2019-05-29 21:04 | NUR ---
ATTEMPTED TO CALL REPORT AT 2039
[2019-05-29 22:30] VITALS: BP 113/67
--- NOTE | 2019-05-30 03:37 | NUR ---
PT ARRIVED ON UNIT FROM ER AT 2230. ADMITTED FROM HOME WITH ABDOMINAL PAIN AND N/V--POSSIBLE PARTIAL SBO. AMBULATING TO BATHROOM INDEPENDENTLY. DILAUDID PROVIDING PAIN RELIEF. ZOFRAN NAUSEA RELIEF. RESTING COMFORTABLY. NO NEEDS VOICED. CALL LIGHT WITHIN REACH. WILL CONTINUE TO PROVIDE FREQUENT OBSERVATION.
[2019-05-30 04:20] VITALS: BP 96/59
[2019-05-30 08:15] VITALS: BP 99/60
[2019-05-30 17:18] VITALS: BP 88/49
--- NOTE | 2019-05-30 19:13 | NUR ---
Assumed care of pt at 0700. Pt a&ox4. Up ad bradley. C/o abd pain. Prn pain meds administered. FLuids discontinued. Surgeon consulted and saw pt. CL diet. Report given to franca hernandez.
[2019-05-30 19:14] VITALS: BP 106/75
[2019-05-31 04:17] VITALS: BP 87/58
[2019-05-31 08:09] VITALS: BP 85/47
--- NOTE | 2019-05-31 08:09 | NUR ---
PT AMBULATING TO BATHROOM INDEPENDENTLY AND IS TOLERATING WELL. DILAUDID AND OXY IR PROVIDING PAIN RELIEF. ZOFRAN NAUSEA RELIEF. RESTING COMFORTABLY. NO NEEDS VOICED. CALL LIGHT WITHIN REACH. FREQUENT OBSERVATION.
--- NOTE | 2019-05-31 11:09 | NUR ---
Received awake on bed. Due medications given as prescribed. A+Ox4. On room air. Vital signs stable. On clear liquids- tolerating well, still with complaints of nausea- PRN medication given as prescribed; no vomiting noted. Complained of pain, due PRN pain medications given as prescribed. Up ad bradley, independent with ADLs. With SL at R AC-intact and flushing well. To continue monitoring patient.
[2019-05-31 19:56] VITALS: BP 126/67
--- NOTE | 2019-06-01 02:06 | NUR ---
ASSUMED CARE OF PT AT 1900HRS. PT IS AOX4 AND LETS NEEDS BE KNOWN. PT IS UP AD BABS. PT REPORTED SOME PAIN AND WAS TREATED WITH PRN PAIN MEDS. PT DENIED NAUSEA THIS SHIFT. PT WAS PUT NPO AT UT FOR PROCEDURE IN TH AM. PT SIGNED CONSENTS. PT WAS ABLE TO GET COMFORTABLE AND SLEEP PART OF THE SHIFT. VSS AND NO S/S OF ACUTE DISTRESS. WILL CONTINUE TO MONITOR.
[2019-06-01 04:27] VITALS: BP 103/67
[2019-06-01 08:35] VITALS: BP 100/67
--- NOTE | 2019-06-01 09:08 | NUR ---
PT ADMITTED RELATED TO PARTIAL SBO. PT ADMITTED AND DISCHARGED 05/24/19 FOR ABD PAIN HOME WITH NO NEEDS. CM REVIEWED CHART AND SPOKE WITH CARE TEAM. CM MET WITH PT AT BEDSIDE THIS DAY. PT IS A&O X4. CM ROLE INTRODUCED. PT INDICATED SHE LIVES IN A DUPLEX ALONE WITH NO STEPS TO ENTER AND NO STEPS INSIDE. 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 PT INDICATED NO DME. PT HAD BEEN [facility] SERVICE WITH [facility] IN THE PAST. PT INDICATED SHE WOULD BE RECEPTIVE TO HH IF RECOMMENDED UPON DC AND WOULD USE [facility]. IT IS ANTICPATED THAT SHE WILL RETURN HOME WITH NO NEEDS ONCE MEDICALLY STABLE. CM TO FOLLOW INDICATED WITH DC PLANNING. GI FOLLOWING.
[2019-06-01 10:50] VITALS: BP 110/63
--- NOTE | 2019-06-01 12:22 | NUR ---
Received awake on bed. On nothing per orem- pt informed and aware; mouth care provided. Up ad bradley. Vital signs stable. On room air. Scheduled for push enteroscopy today at 11am, consent signed. No vomiting noted. Complained of pain, due PRN pain meds given as prescribed. Pt fetched by pre-op staff, report given, pt taken down via wheelchair. Back to room from GI lab, pt complained of nausea- PRN anti-emetic given as prescribed. With NJ tube noted, a/w KUB xray to confirm placement of tube. Vital signs stable.
[2019-06-01 15:23] VITALS: BP 126/63
[2019-06-01 20:41] VITALS: BP 99/59
--- NOTE | 2019-06-02 02:40 | NUR ---
ASSUMED CARE OF PT AT 1900HRS. PT IS AOX4 AND LETS NEEDS BE KNOWN. PT IS UP AD BABS. PT WALKED AROUND THE UNIT SEVERAL TIMES. PT REPORTED PAIN AND NAUSEA BUT NO EMISIS NOTED. PT WAS TREATED WITH PRN PAIN MEDS. PT WAS ABLE TO GET COMFORTABLE AND SLEEP PART OF THE SHIFT. VSS AND NO S/S OF ACUTE DISTRESS. WILL CONTINUE TO MONITOR.
[2019-06-02 08:20] VITALS: BP 102/57
--- NOTE | 2019-06-02 10:40 | NUR ---
Received awake on bed. Due medications given as prescribed, able to swallow meds w/o difficulty. On room air. Vital signs stable. A+Ox4. On regular diet- tolerating well. With SL at R AC- intact and flushing well. Up ad bradley, independent with ADLs. With complaints of pain and nausea- PRN medications given as prescribed; no emesis noted. Seen by GI PUBLISHING EDITOR- possible discharge today, a/w orders.
[2019-06-02] MEDS ORDERED: OXYCODONE HCL30 MG PO (13:05)
[2019-06-02 13:13] VITALS: BP 102/57
--- NOTE | 2019-06-08 13:22 | D ---
[facility] [place] [address] DISCHARGE SUMMARY Name: YING PARISI Room #: 455-P [facility] IN M.R.#: [id number] Admission: 05/29/19 Attend Phys: Slim Reyez Discharge: 06/02/19 Date of : 72 Report #: [id number] THIS REPORT FOR: cc: Eleno Gonzalez MD, David W. MD Peters, David W. MD ~ THIS REPORT FOR: //name// CC: Kj Gonzalez DATE OF SERVICE: 06/02/2019 FINAL DIAGNOSES: 1. Chronic abdominal pain. 2. Chronic narcotic dependence. 3. Chronic anticoagulation. 4. Factor V Leiden deficiency. HOSPITAL COURSE: The patient was admitted with abdominal pain and concern for partial small-bowel obstruction. Dr. Singer and Dr. Ledezma saw her in consultation. Please see those dictated reports. Ultimately, she underwent an EGD with NG tube placement for the initiation of contrast for a CT of the abdomen. Following the study, I discussed with Dr. Singer and there was no obvious mechanical obstruction on CT with contrast. The plan was to advance her diet and resume her usual home medications. She will follow up with him as an outpatient for trigger point injections for consideration of treatment of her abdominal pain. On the day of discharge: GENERAL: She was awake and alert. VITAL SIGNS: Stable vital signs. LUNGS: Clear. HEART: Regular. ABDOMEN: Soft, normoactive bowel sounds. EXTREMITIES: No edema. DISPOSITION: She is discharged to home with diet and activity as tolerated, resume all home medications. Follow up with Dr. Singer tomorrow for an injection and follow up with me in 2 weeks. <ELECTRONICALLY SIGNED> By: Eleno Gonzalez MD 06/08/19 1322 [id number] Eleno Gonzalez MD /nt
== END 2019-06-02 15:56 | disposition home or self-care (01) | DRG 92 ==
LOC: ER 16:04 → 4W 18:06 → EROBS 18:06 → 4S 18:06 → 4W 05-31 16:39
PROVIDERS: Emergency Medicine; ADMIT Internal Medicine
PROC: 0DJ08ZZ Inspection of Upper Intestinal Tract, Via Natural or Artificial Opening Endoscopic (ICD-10-PCS; principal; 2019-06-01)
PROC: 0D9680Z Drainage of Stomach with Drainage Device, Via Natural or Artificial Opening Endoscopic (ICD-10-PCS; principal; 2019-06-01)
DX: G89.28 Other chronic postprocedural pain (principal); F11.20 Opioid dependence, uncomplicated; D68.2 Hereditary deficiency of other clotting factors; K56.7 Ileus, unspecified; G89.29 Other chronic pain; R10.9 Unspecified abdominal pain; Z86.711 Personal history of pulmonary embolism; Z95.828 Presence of other vascular implants and grafts; Z90.49 Acquired absence of other specified parts of digestive tract; Z88.8 Allergy status to other drugs, medicaments and biological substances; Z88.6 Allergy status to analgesic agent; Z88.1 Allergy status to other antibiotic agents; Z91.012 Allergy to eggs; Z79.01 Long term (current) use of anticoagulants; Z82.49 Family history of ischemic heart disease and other diseases of the circulatory system; Z83.3 Family history of diabetes mellitus; Z79.899 Other long term (current) drug therapy
CPT/HCPCS: 10045; 10100; 70005

== ENCOUNTER 2019-06-17 17:29 | Inpatient (IN) | payer OTHER ==
[~2019-06-17] VITALS: Ht 167.6 cm; Wt 93.9 kg
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
[2019-06-17 17:39] VITALS: BP 128/94
[2019-06-17 19:02] LABS: HEMOGLOBIN 10.3 gm/dL (12.0-15.0); MCH 22.9 pg (26.0-34.0)
[2019-06-17 19:03] LABS: ABSOLUTE NEUTROPHILS 3.4 thou/uL (1.4-8.2); BASOPHILS 0.9 % (0.0-2.0); EOSINOPHILS 5.5 % (0.0-3.0); HEMATOCRIT 34.4 % (37.0-47.0); LYMPHOCYTES 21.6 % (24.0-44.0); MCHC 29.8 g/dL (28.0-37.0); MCV 76.7 fL (80.0-100.0); MONOCYTES 7.7 % (1.0-8.0); POLYS 64.3 % (36.0-66.0); RBC 4.49 mil/uL (4.20-5.00); WBC 6.6 thou/uL (4.0-11.0)
[2019-06-17 19:09] LABS: CALCIUM 8.7 mg/dL (8.5-10.1); CREATININE 0.7 mg/dL (0.6-1.0)
[2019-06-17 19:15] LABS: ALBUMIN 3.4 g/dL (3.4-5.0); TOTAL BILIRUBIN 0.4 mg/dL (<0.1-1.0); TOTAL PROTEIN 7.5 g/dL (6.4-8.2)
[2019-06-17 19:31] LABS: ANISOCYTOSIS 1+; HYPOCHROMASIA 1+
[2019-06-17 19:32] LABS: PLATELET COUNT 213 thou/uL (150-400)
[2019-06-17 21:25] VITALS: BP 128/94
[2019-06-17 22:30] VITALS: BP 134/74
[2019-06-17 22:59] VITALS: BP 119/74
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
--- NOTE | 2019-06-18 14:58 | NUR ---
REPORT RECEIVED FROM PHILIP RN, PT ASSESSED, VSS, HAD RECEIVED PAIN MED BEFORE I CAME ON SHIFT AND WAS SLEEPING IN BED, EASILY AROUSABLE, PT'S ABDOMEN HURTING, HAD A SMALL BM AROUND 1230, ASKED FOR PAIN MEDS, WAS TOLD SHE NEEDED TO WAIT AN HALF AN HOUR, PT C/O PAIN BEING TOO GREAT. ASKED ME TO GIVE THE PAIN MED "NOW AND CHART LATER." I TOLD HER I COULDN'T DO THAT. SPOKE TO MD ABOUT CHANGING HER PAIN MED, AND HE DECLINED SAYING THAT WAS WHAT CAUSED THE CONSTIPATION INITIALLY. WILL MONITOR.
[2019-06-18 16:10] VITALS: BP 130/78
--- NOTE | 2019-06-18 16:59 | NUR ---
PT ADMITTED RELATED TO ABD PAIN. PT ADMITTED AND DISCHARGED 06/01/19-06/02/19 FOR ABD PAIN HOME WITH NO NEEDS. CM REVIEWED CHART AND SPOKE WITH CARE TEAM. CM MET WITH PT AT BEDSIDE THIS DAY. PT IS A&O X4. CM ROLE INTRODUCED. PT INDICATED SHE LIVES IN A DUPLEX ALONE WITH NO STEPS TO ENTER AND NO STEPS INSIDE. 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 PT INDICATED NO DME. PT HAD BEEN ON SERVICE WITH [facility] IN THE PAST. PT INDICATED SHE WOULD BE RECEPTIVE TO HH IF RECOMMENDED UPON DC AND WOULD USE [facility]. IT IS ANTICPATED THAT SHE WILL RETURN HOME WITH NO NEEDS ONCE MEDICALLY STABLE. CM TO FOLLOW INDICATED WITH DC PLANNING. GI FOLLOWING.
[2019-06-18 20:25] VITALS: BP 129/82
[2019-06-19 03:45] VITALS: BP 109/60
--- NOTE | 2019-06-19 05:13 | NUR ---
ASSUMED PT CARE AROUND 1900. A&OX4. PT SLEPT MOST OF THE NIGHT. RESP EVEN AND UNLABORED. UP AD BABS AROUND THE ROOM. C/O ABDOMINAL PAIN; PAIN MEDICATION GIVEN ORDED. C/O NAUSEA AT BEGINNING OF SHIFT; RESOLVED WITH ZOFRAN. MIRALAX GIVEN ORDERED. NO BM YET THIS SHIFT. PROGRESSING SLOWLY TOWARD POC GOALS.
[2019-06-19 08:00] VITALS: BP 109/74
--- NOTE | 2019-06-19 15:46 | NUR ---
ASSUMED CARE PT SHIFT CHANGE. ASSESSMENT CHARTED. MEDS GIVEN PER JUN. PT ALERT AND ORIENTED. VSS. C/O ABDOMINAL PAIN- MANAGED WITH PO PAIN MEDS. O2 SATS WNL ON ROOM AIR. DIET ADVANED TOLERATED PER DR ORDERS, PT TOLERATING ADVANCEMENT OF DIET ADEQUATELY. PT HAS NOT HAD BM THIS SHIFT, BUT IS PASSING GAS. DENIES NEEDS AT THIS TIME. CONTINUING TO MONITOR.
[2019-06-19 16:16] VITALS: BP 106/66
[2019-06-19 19:10] VITALS: BP 98/60
--- NOTE | 2019-06-19 20:37 | NUR ---
1850 MASSUMED CARE OF PT AFTER REPORT 2034 ASSESSMENT COMPLETED, PT STATES ABD PAIN MOSTLY UNDER CONTROL AND SHE IS ANTICIPATING TOTAL PAIN RELIEF AT 2200 WITH NEXT DOSE OF PAIN MED, PT STATES NO BM YESTERDAT BOWEL SOUNDS ACTIVE X 4, ABDOMEN, SOFT TO PALPATION WITH SLIGHT PAIN IN RUQ, PT UP AD BABS, SCDS IN PLACE, WILL CONTINUE WITH HOURLY ROUNDING, AND PAIN CONTROL.
[2019-06-20 01:47] VITALS: BP 110/78
[2019-06-20 03:20] VITALS: BP 87/57
[2019-06-20 06:11] VITALS: BP 102/78
--- NOTE | 2019-06-20 14:23 | NUR ---
ADMINISTERED MAGNESIUM CITRATE PER ORDERS FROM DR JESSE XIONG. ABDOMINAL CRAMPING, SMALL AMOUNT OF LIQUID STOOL, WITH WHAT APPEARED TO PATIENT TO BE BLOOD CLOTS PRESENT. PATIENT DID NOT SAVE STOOL FOR NURSE TO EXAMINE. STILL FEELS FULL, REMAINS DISTENDED WITH HYPERACTIVE BS. CALLED INFORMATION TO DR JESSE XIONG, ORDERED TO STOP MIRALAX, NOTE STOOL FINDINGS, AND CONTINUE TO MONITOR PATIENT.
[2019-06-20 17:23] VITALS: BP 113/82
[2019-06-20 19:15] VITALS: BP 95/58
--- NOTE | 2019-06-21 03:33 | NUR ---
ASSUMED PT CARE AT 1900. PT CONCERNED ABOUT SIZE OF BM, WAS EXPECTING IT TO BE MORE. REPORTS ABDOMINAL PAIN, MANAGED WITH PO MEDS. NAUSEA TREATED WITH MEDS. UP AD BABS IN ROOM, NO OTHER SIGNIFICANT CHANGES.
[2019-06-21 04:43] VITALS: BP 997/58
[2019-06-21 07:41] VITALS: BP 101/50
[2019-06-21] MEDS ORDERED: OXYCODONE HCL30 MG PO (10:56)
[2019-06-21 12:47] VITALS: BP 101/50
--- NOTE | 2019-06-21 13:58 | NUR ---
ASSUMED CARE OF THE PT AT 0700. PTS PAIN CONTROLLED BY PAIN MEDS, SEE EMAR. PT IV D/C'D. PT IS AMBULATORY AND NOT A FALL RISK. NO N/V/D/ NOTED. PT D/C'D TO HOME WITH PRESCRIPTIONS AND BELONGINGS. PPWK SIGNED. PT D/C'D
== END 2019-06-21 13:00 | disposition home or self-care (01) | DRG 392 ==
LOC: ER 17:29 → 4S 20:50 → EROBS 20:50 → 4S 22:32
PROVIDERS: Emergency Medicine; ADMIT Internal Medicine Geriatric Medicine
DX: K59.03 Drug induced constipation (principal); D68.51 Activated protein C resistance; F41.9 Anxiety disorder, unspecified; F32.9 Major depressive disorder, single episode, unspecified; Z88.5 Allergy status to narcotic agent; Z88.1 Allergy status to other antibiotic agents; Z88.8 Allergy status to other drugs, medicaments and biological substances; Z90.49 Acquired absence of other specified parts of digestive tract; Z90.3 Acquired absence of stomach [part of]; Z90.89 Acquired absence of other organs; Z95.828 Presence of other vascular implants and grafts; Z79.891 Long term (current) use of opiate analgesic; Z79.899 Other long term (current) drug therapy; Z91.012 Allergy to eggs; Z98.84 Bariatric surgery status; Z86.711 Personal history of pulmonary embolism; Z86.718 Personal history of other venous thrombosis and embolism; Z79.01 Long term (current) use of anticoagulants
CPT/HCPCS: 10195

== ENCOUNTER 2019-07-05 16:48 | Observation (INO) | payer OTHER ==
--- NOTE | 2019-07-05 18:03 | NUR ---
A/O, patient arrived on the floor around 1730, Dr. Meneses paged twice, no response; patient left for ER, claiming that she could not tolerate the pain in her abdomen any more. The staff went to ER with the patient; Carolee in ER got report from the staff, was talking to the patient when the staff left ER for the floor; Nursing quarry supervisor called, has not got hold of her.
--- NOTE | 2019-07-05 18:34 | NUR ---
Dr. Meneses called at 1830, the staff reported to Dr. Meneses that the patient had left for ER due to the pain in abdomen.
[2019-07-06] MEDS ORDERED: PAXIL CR12.5 MG PO (12:33)
== END 2019-07-05 17:45 | disposition home or self-care (01) ==
LOC: 4S 16:48
PROVIDERS: ADMIT Internal Medicine
DX: K56.600 Partial intestinal obstruction, unspecified as to cause (principal); R11.10 Vomiting, unspecified; G89.29 Other chronic pain; R10.9 Unspecified abdominal pain; F17.200 Nicotine dependence, unspecified, uncomplicated; K59.00 Constipation, unspecified; D53.9 Nutritional anemia, unspecified; E44.1 Mild protein-calorie malnutrition; Z79.01 Long term (current) use of anticoagulants; Z90.49 Acquired absence of other specified parts of digestive tract
CPT/HCPCS: 10102

== ENCOUNTER 2019-07-05 17:56 | Inpatient (IN) | payer OTHER ==
[~2019-07-05] VITALS: Ht 167.6 cm; Wt 96.6 kg
[2019-07-05 17:57] VITALS: BP 142/95
[2019-07-05 18:41] LABS: ABSOLUTE NEUTROPHILS 3.3 thou/uL (1.4-8.2); BASOPHILS 0.5 % (0.0-2.0); EOSINOPHILS 0.4 % (0.0-3.0); HEMOGLOBIN 9.8 gm/dL (12.0-15.0); LYMPHOCYTES 14.1 % (24.0-44.0); MCHC 30.6 g/dL (28.0-37.0); MCV 75.3 fL (80.0-100.0); MONOCYTES 7.5 % (1.0-8.0); PLATELET COUNT 256 thou/uL (150-400); POLYS 77.5 % (36.0-66.0); RBC 4.25 mil/uL (4.20-5.00); RDW 19.6 % (10.5-14.5); WBC 4.2 thou/uL (4.0-11.0)
[2019-07-05 18:57] LABS: CALCIUM 8.2 mg/dL (8.5-10.1); CREATININE 0.6 mg/dL (0.6-1.0)
[2019-07-05 19:03] LABS: ALBUMIN 3.2 g/dL (3.4-5.0); TOTAL BILIRUBIN 0.9 mg/dL (<0.1-1.0); TOTAL PROTEIN 7.1 g/dL (6.4-8.2)
[2019-07-05 19:35] LABS: URINE BILIRUBIN NEGATIVE (Negative); URINE BLOOD NEGATIVE (Negative); URINE CLARITY CLEAR; URINE COLOR YELLOW; URINE GLUCOSE-RANDOM* NEGATIVE (Negative); URINE KETONES NEGATIVE (Negative); URINE LEUKOCYTES-REFLEX NEGATIVE (Negative); URINE NITRITE-REFLEX NEGATIVE (Negative); URINE PROTEIN (DIPSTICK) NEGATIVE (Negative); URINE SPECIFIC GRAVITY 1.015 (1.005-1.035)
[2019-07-05 20:17] LABS: ANISOCYTOSIS 1+; HYPOCHROMASIA 1+
[2019-07-05 20:21] VITALS: BP 128/79
[2019-07-05 20:42] VITALS: BP 115/60
[2019-07-05 20:59] VITALS: BP 137/85
--- NOTE | 2019-07-05 22:52 | NUR ---
Admission assessment and history is completed. Pt. c/o chronic abdominal pain. No c/o nausea.
--- NOTE | 2019-07-06 05:31 | NUR ---
Pt. arrived to the unit from the emergency room accompanied by staff via cart. She is alert and oriented. Introduced to the staff and oriented to her room.
--- NOTE | 2019-07-06 05:35 | NUR ---
Pt. rested quietly at intervals during the night when checked on during frequent rounds. Prn ivp pain medication given (see emar) with some relief noted. No c/o nausea and no emesis.
[2019-07-06 05:52] VITALS: BP 125/87
[2019-07-06 07:10] VITALS: BP 154/76
[2019-07-06] MEDS ORDERED: PAXIL CR12.5 MG PO (12:33)
[2019-07-06 13:16] LABS: % SATURATION 4 % (20-39); IRON 16 ug/dL (50-170); TIBC 409 ug/dL (250-450)
[2019-07-06 13:43] LABS: TSH 0.252 uIU/mL (0.358-3.740)
[2019-07-06 15:00] VITALS: BP 126/78
--- NOTE | 2019-07-06 18:45 | NUR ---
Assumed patient care at 0715. Vital signs stable. Patient is up ad bradley. Normal Saline discontinued this afternoon. Patient was asking for Hydromorphone 0.5mL/1mg IV push every 3 hours; she complained that this was not working for her. Dr Gonzalez came to assess, changed IV Hydromorphone to po Oxycodone 30mg prn q 4 hours; she called asking for it early. Patient has been given 2 doses of Oxycodone 30mg po with abdominal pain of "level seven" reduced to "level five." Consult ordered for Dr Singer. Occult Blood Stool Sample ordered as well. Report given to on-coming nurse.
[2019-07-06 19:38] VITALS: BP 117/80
--- NOTE | 2019-07-07 07:34 | NUR ---
ASSUMED PT CARE AROUND 1914. AXOX4. VSS. NO S/S ACUTE DISTRESS NOTED OR REPORTED AT THIS TIME. CARE TRANSFERRED TO INCOMING RN AT THIS TIME.
[2019-07-07 08:26] VITALS: BP 109/71
--- NOTE | 2019-07-07 10:44 | NUR ---
PT ADMITTED RELATED TO SBO, CONSTIPATION, N/V. PT WAS LAST HERE 06/17/19-06/21/19 FOR ABD PAIN AND DISCHARGED HOME WITH NO NEEDS. CM REVIEWED CHART AND SPOKE WITH CARE TEAM. CM MET WITH PT AT BEDSIDE THIS DAY. PT IS A&O X4. CM ROLE INTRODUCED. PT INDICATED SHE LIVES IN A DUPLEX ALONE WITH NO STEPS TO ENTER AND NO STEPS INSIDE. 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 PT INDICATED NO DME. PT HAD BEEN [facility] SERVICE WITH [facility] IN THE PAST. PT INDICATED SHE WOULD BE RECEPTIVE TO HH IF RECOMMENDED UPON DC AND WOULD USE [facility]. IT IS ANTICPATED THAT SHE WILL RETURN HOME WITH NO NEEDS ONCE MEDICALLY STABLE. CM TO FOLLOW INDICATED WITH DC PLANNING.
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
[2019-07-07 14:49] VITALS: BP 108/66
[2019-07-07 19:41] VITALS: BP 107/64
--- NOTE | 2019-07-07 19:57 | NUR ---
Assumed pt care this am, VS stable. Pt is up ad bradley and wouold be asleep for most of the shift. Though pain was verbalized and required that medication be given on the dot. Occult blood sample still pending, offered prune juice as well. POC follwed, clear liquids maintained, pain managed with medication partial relief noted. Endorsed to the night nurse.
--- NOTE | 2019-07-08 04:01 | NUR ---
ASSUMED PT CARE AROUND 1914. AXOX4. PERSISTENT ABD PAIN. MEDS GIVEN PER MD ORDER. VSS. NO S/S ACUTE DISTRESS NOTED OR REPORTED AT THIS TIME. WILL CONT TO MONITOR FOR ANY CHANGES IN CONDITION.
[2019-07-08 08:12] VITALS: BP 103/60
--- NOTE | 2019-07-08 15:00 | NUR ---
DR. VIGIL CONSULTED HE INDICATED THAT HE MAY DO AN INJECTION INTO PT'S ABD. CM TO FOLLOW INDICATED WITH DC PLANNING.
[2019-07-08 17:18] VITALS: BP 118/77
[2019-07-08 19:32] VITALS: BP 98/60
--- NOTE | 2019-07-08 19:51 | NUR ---
Assumed pt care this am, VS stable, in constant pain that is only relieved partially with medication. Trigger point injection done by Dr. Singer, as per the pt minimal relief was noted. Still no BM, per Dr. Meneses, to start a regular diet as tolerated. POC followed, no signs of distress noted, pt has been asleep for most of the shift. Endorsed to the night nurse.
[2019-07-09 08:46] VITALS: BP 106/77
[2019-07-09 12:06] VITALS: BP 121/83
[2019-07-09 15:27] VITALS: BP 103/57
--- NOTE | 2019-07-09 16:02 | NUR ---
Assumed pt care this am, VS stable partial relief of chronic pain is noted. 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 POC followed, no signs distress noted, pt is asleep for most of the day.
[2019-07-09 19:19] VITALS: BP 101/66
--- NOTE | 2019-07-10 03:08 | NUR ---
Progress pt a/o x4 up ad bradley ambulating indepently gait steady. abdomen soft with 4 intact well approximated lap sites. bowels sounds are normal and pt passing flatus, no bm yet. tolerating reg diet adequate po intake, voiding qs continue to monitor.
[2019-07-10 08:00] VITALS: BP 112/74
--- NOTE | 2019-07-10 12:15 | NUR ---
ASSUMED PT CARE AT 7AM.PT IN BED RESTING WITHOUT C/O.ASSESSMENT COMPLETED.VSS. PT HAS GOOD APPETITE.C/O ABDOMINAL PAIN RATED 7/10.OXY IR PO GIVEN WITH RELIEF.PT AMBULATED IN HALLWAYS WITH STEADY GAIT.AROUND 9AM,THIS RN SUSTAINED PERCUTANEOUS NEEDLESTICKFROM PT.DR XIONG AND SIVA RN NOTIFIED.WILL CONTINUE TO MONITOR.
[2019-07-10 15:00] VITALS: BP 113/78
[2019-07-10 19:07] LABS: HCV AB-EMPLOYEE EXPOSURE <0.1 (0.0-0.9); HEPATITIS B SURFACE AG Negative (Negative)
[2019-07-10 19:13] VITALS: BP 100/63
--- NOTE | 2019-07-11 06:41 | NUR ---
PROGRESS PT A/O X4. RATING RUQ PAIN AN 8 TO 10 AND REPORTS ITS UNBEARABLE. TAKING OXYCODONE 30 MG Q4HRS WITH SOME EFFECT .IV ANTIBIOTICS CONTINUE. RIGHT EJ PATENT FLUSHES WITHOUT DIFFICULTY. PT UP AD BABS VOIDING QS GIVEN A DOSE OF LACTULOSE LAST NIGHT BUT STILL NO BM. SNACKED ON HENRIETTA CRACKERS AND APPLE JUICE THROUGHOUT THE NIGHT.CONTINUE PLAN OF CARE.
[2019-07-11 07:53] VITALS: BP 99/69
--- NOTE | 2019-07-11 15:35 | NUR ---
Assumed patient care at 0715. Vital signs stable. Patient has been passing gas throughout this shift but, has not yet had a bowel movement. IV in right exterior jugular vein clotted off, therfore it was discontinued. IV Team contacted. 20 gauge placed in Left Forearm. Patient is alert and oriented x's 4. She is Up Ad Amy. Patient has refused to take a shower everyday since admission. She continues to ask for Oxycodone 30mg po every four hours for right upper quadrant abdominal pain. Patient reports that her "pain level never gets below a five." She is consuming 100% of all meals, having snacks in between time. Patient expected to Discharge tomorrow. Will continue to monitor.
[2019-07-11 16:36] VITALS: BP 110/75
[2019-07-11 17:26] VITALS: BP 123/83
[2019-07-11 19:52] VITALS: BP 91/53
--- NOTE | 2019-07-12 03:53 | NUR ---
PATIENT ALERT AND ORIENTED X4. UP ADLIB IN ROOM. MEDICATED FOR PAIN X2 AT TIME OF NOTE WITH GOOD RELIEF. PATIENT ABLE TO SLEEP OFF AND ON. NO STOOL AT THIS TIME FOR OCCULT BLOOD SAMPLE. COOPERATIVE WITH CARE. RESTING QUIETLY. SPOKE TO HER SON (MICA) REGARDING HER MOVE TO ANOTHER ROOM. WILL MONITOR.
[2019-07-12 08:34] VITALS: BP 115/85
--- NOTE | 2019-07-12 10:31 | NUR ---
Nutrition: Assessed due to LOS. Admit: SBO, constipation. Pt was on clear liquids for first 3 days, able to advance to regular diet on 07/08. RN notes yesterday indicating pt eating 100% of all meals, plus snacks in between. There weren't any recordings from 07/09, but 07/10 po records do indicate 100% intake x 3 meals. Pt denies any concerns at visit, no issues with transition from clears to solid food again. Pt still has not had a BM yet, but continues to report passing gas. Suggested choosing well cooked vegetables, softer fruits to decrease fiber intake slightly and make digestion easier while waiting on BM. Pt thankful for information. No additional nutrition needs. Remains low nutrition risk.
--- NOTE | 2019-07-12 14:33 | NUR ---
CARE TEAM INDICATED THAT THEY ARE WORKING TO BETTER CONTROL PT'S PAIN. TRYING NEW ORAL MED. CM FOLLOWING SHOULD ANY DC NEEDS ARISE.
[2019-07-12 16:24] VITALS: BP 118/75
[2019-07-12 19:43] VITALS: BP 119/78
--- NOTE | 2019-07-12 20:10 | NUR ---
ASSUMED CARE OF PATIENT AT 0715, PATIENT ALERT AND ORIENTED X 4. UP AD BABS IN ROOM. C/O PAIN WITH RIGHT SIDE OF ABDOMEN. RECEIVED OXYCODONE 30MG X 2 THIS SHIFT. C/O NAUSEA, ZOFRAN 4MG IV GIVEN WITH SOME RELIEF. VSS. DR PARK SAW THE PATIENT TODAY, RECEIVED ORDER FOR CYMBALTA. LEFT FOREARM IV IN PLACE. WILL CONTINUE TO MONITOR.
--- NOTE | 2019-07-13 04:05 | NUR ---
RECIEVED CARE OF THIS PATIENT AT 1900. PATIENT ALERT AND ORIENTED X4. PATIOENT UP AD BABS IN ROOM. C/O NAUSEA, MED GIVEN WITH COMPLETE RELIEF. C/O PAIN, MED GIVEN WITH GOOD RELIEF. IV PATENT IN LFA, SLEPT OFF AND ON DURING NIGHT.
[2019-07-13 09:05] VITALS: BP 100/66
[2019-07-13 19:11] VITALS: BP 123/77
--- NOTE | 2019-07-13 19:29 | NUR ---
ASSUMED CARE OF PATIENT AT 0715, PATIENT ALERT AND ORIENTED X 4. UP AD BABS. CONTINUES TO C/O PAIN WITH RIGHT ABDOMEN AREA, RECEIVED OXYCODONE 30MG 1 TABLET X 2 THIS SHIFT. PATIENT C/O NAUSEA ALSO THIS SHIFT. DR PARK HERE TO SEE THE PATIENT, NEW ORDERS RECEIVED. KUB DONE. LEFT FOREARM IV IN PLACE. NO BM THIS SHIFT, STILL NEED STOOL FOR OCCULT. PATIENT ATE 100% OF ALL MEALS. WILL CONTINUE TO MONITOR.
[2019-07-13 20:23] VITALS: BP 109/72
[2019-07-13 20:33] LABS: HEMATOCRIT 34.2 % (37.0-47.0); HEMOGLOBIN 10.3 gm/dL (12.0-15.0); MCH 23.9 pg (26.0-34.0); MCHC 30.2 g/dL (28.0-37.0); RBC 4.33 mil/uL (4.20-5.00); RDW 19.7 % (10.5-14.5)
--- NOTE | 2019-07-13 20:39 | NUR ---
DIGITAL CIRCUIT DESIGNER CALLED AT 2013 FOR C/O CHEST PAIN. SEE DIGITAL CIRCUIT DESIGNER FLOWSHEET.
[2019-07-13 20:41] LABS: ANION GAP 4 mmol/L (7-16); BUN 16 mg/dL (7-18); CALCIUM 8.1 mg/dL (8.5-10.1); CHLORIDE 103 mmol/L (98-107); CO2 31 mmol/L (21-32); CREATININE 1.2 mg/dL (0.6-1.0); GLUCOSE 93 mg/dL (74-106); POTASSIUM 4.8 mmol/L (3.5-5.1); SODIUM 138 mmol/L (136-145)
[2019-07-13 20:50] LABS: TROPONIN-I <0.06 ng/mL (<0.06)
[2019-07-13 20:55] VITALS: BP 112/75
--- NOTE | 2019-07-14 03:48 | NUR ---
RECIEVED CARE OF THIS PATIENT AT 1900. PATIENT ALERT AND ORIENTED X4. WHILE IN ROOM TALKING TO MARYANNTENT AT 2009 PATIENT DEVELOPED CHEST PAIN IN UPPER L CHEST, PAIN WAS SHARP AND GOING TO BACK. PATIENT'S L ARM BECAME TINGLING AND THEN BEGAN TO HAVE PAIN IN L JAW AREA. RAPID RESPONSE WAS CALLED AT 2014. DR XIONG WAS PAGED AT 2018. DR PARK CALLED BACK AT 2022. MEANWHILE AN EKG, AND LAB WAS DONE. AT [address] PARK CALLED THE EKG WAS DONE AND IT WAS NORMAL. HE GAVE ORDERS FOR 1 NITRO UNDER THE TONGUE AND TO CALL BACK WHEN LAB WAS READY. NITRO WAS GIVEN AT 2029. PATIENT HAD LITTLE RELIEF AT 5 MIN. PAIN HAD STARTED OUT 10/10, NITRO BROUGHT IT DOWN TO 8/10. WHEN LAB WAS READY DR PARK WAS CALLED AND GIVEN RESULTS. HE DID NOT GIVE ANY MORE ORDERS OTHER THAN TO JUST WATCH FOR THE REST OF THE NIGHT. PATIENT C/O NAUSEA X2, MED GIVEN WITH GOOD RESULTS. C/O PAIN OTHER THAN THE CHEST PAIN, MED GIVEN WTIH MOD RELIEF. PATIENT SLEPT MOST OF THE NIGHT.
[2019-07-14 07:26] VITALS: BP 120/84
[2019-07-14 16:07] VITALS: BP 101/77
[2019-07-14 17:13] VITALS: BP 101/77
--- NOTE | 2019-07-14 17:16 | NUR ---
ASSUMED CARE FOR PT AT 0700. PT IS AOX4, NO C/O N/V OR CHEST PAIN. PT REPORTS HAVING ABD PAIN, CONTROLLED BY ORAL PAIN ANALGESIC. PT REPORTS SHE HAS BEEN IN PAIN FOR 17 YEARS AND SHE HAS TO HAVE HER PAIN MEDICATION. PT IS UP AD BABS TO THE BATHROOM. PT REPORTS SHE HAD A BM BUT NOT ENOUGH HAS COME OUT. PT RECEIVED A 1X ORDER FOR MAG CITRATE. PT CALLS APPROPTIATELY, WILL CONTINUE TO MONITOR.
[2019-07-14 19:15] VITALS: BP 109/73
--- NOTE | 2019-07-15 02:52 | NUR ---
RECIEVED CARE OF THIS PATIENT AT 1900. PATIENT ALERT AND ORIENTED X4. UP IN HALLS. C/O PAIN AND NAUSEA [id number]. MED GIVEN WITH SOME RELIEF OF PAIN AND COMPLETE RELIEF OF NAUSEA. IV IN LFA PATENT. PATIENT SLEPT LITTLE THIS SHIFT.
[2019-07-15 06:53] VITALS: BP 116/79
--- NOTE | 2019-07-15 07:42 | EKG ---
[facility] [place] [address] ELECTROCARDIOGRAM REPORT Name: YING PARISI Room #: 405-P ADM IN M.R.#: [id number] Admission: 07/05/19 Attend Phys: Slim Reyez Discharge: Date of : 72 Report #: [id number] THIS REPORT FOR: cc: Kj Meneses MD, Christopher B. MD Lundgren, Craig H. MD [facility] ~ THIS REPORT FOR: //name// [facility] Test Date: 2019-07-13 Test Time: 20:22:25 Pat Name: YING PARISI Department: Room: 405 P Gender: F Doctor Of Naturopathic Medicine: Slim MARK : 1970 Requested By: Kj Meneses Order Number: [id number] MD: Mio Childers Measurements Intervals [place] Rate: 80 P: 42 TX: 132 QRS: -15 QRSD: 105 T: 22 QT: 357 QTc: 412 Interpretive Statements Sinus rhythm No significant abnormality Compared to ECG 06/13/2018 19:07:41 Myocardial infarct finding no longer present T-wave abnormality no longer present Electronically Signed On 07-15-2019 7:40:57 CDT by Mio Childers [email or web address] <ELECTRONICALLY SIGNED> By: Mio Childers MD, FAC 07/15/1939 21 21 Mio Childers MD, FACC /EPI
[2019-07-15] MEDS ORDERED: OXYCODONE HCL30 MG PO (09:50)
[2019-07-15] MEDS ORDERED: MOBIC15 MG PO (09:50)
[2019-07-15] MEDS ORDERED: ZOFRAN ODT4 MG DISSOLVE (09:51)
[2019-07-15] MEDS ORDERED: LACTULOSE20 GM/30 M PO (09:51)
[2019-07-15] MEDS ORDERED: PROTONIX 20 MG20 M1 PO (09:52)
[2019-07-15 10:17] VITALS: BP 116/79
--- NOTE | 2019-07-15 11:01 | NUR ---
PT IS AOX4, VSS, GENERALIZED PAIN IN ABD AREA IS CONTROLLED WITH ORAL PAIN ANALGESIC ORDERED. PT REPORTS SOME RELIEF NOW THAT SHE HAD A BM LAST NIGHT. PT IS UP AD BABS IN ROOM. TOLERATING DIET WELL. IV REMOVED, DISCHARGE INSTRUCTIONS AND PRESCRIPTIONS RECEIVED BY PT. BELONGINGS WERE PACKED AND SENT HOME WITH PT.
[2019-07-15 11:04] VITALS: BP 116/79
--- NOTE | 2019-07-15 14:19 | NUR ---
CARE TEAM INDICATED THAT PT IS MEDICALLY STABLE TO DC HOME THIS DAY WITH NO NEEDS. NO OTHER CM INTERVENTION INDICATED. CASE CLOSED.
--- NOTE | 2019-07-16 10:07 | D ---
[facility] [place] [address] DISCHARGE SUMMARY Name: YING PARISI Room #: 405-P [facility] IN M.R.#: [id number] Admission: 07/05/19 Attend Phys: Slim Reyez Discharge: 07/15/19 Date of : 72 Report #: [id number] THIS REPORT FOR: cc: Kj Meneses MD,Eleno Arellano MD, MD ~ THIS REPORT FOR: //name// CC: Kj Meneses FINAL DIAGNOSES: 1. Chronic abdominal pain. 2. Narcotic dependence. 3. Constipation. 4. Anemia of chronic disease. 5. Hypercoagulable state. HOSPITAL COURSE: The patient was admitted with abdominal pain. X-rays revealed obstipation. She was given additional bowel regimen and had some results. Dr. Singer saw her in consultation, but no surgery was indicated at this point, she was treated medically. Otherwise, she continues to have chronic pain and effects of narcotic dependence. Her baseline medicine was continued. Cymbalta was added to the regimen for additional neuropathic pain management, anti-inflammatory was added as well, which she tolerated without any signs or symptoms of allergic reaction. Ultimately, the plan at this point is bowel regimen, chronic, stable dose of pain medication at this point and outpatient referral or evaluation at a tertiary care center for consideration of chronic pain management or other surgical intervention. PHYSICAL EXAMINATION: GENERAL: On the day of discharge, she was awake and alert, walking the halls without incident. VITAL SIGNS: Stable. LUNGS: Clear. HEART: Regular. ABDOMEN: Soft, normoactive bowel sounds. EXTREMITIES: No edema, skin rash. DISPOSITION: She is discharged to home. Diet and activity as tolerated, resume all home medications, MiraLax daily, lactulose as needed for constipation. Follow up with Dr. Meneses in 2 weeks. <ELECTRONICALLY SIGNED> By: Eleon Gonzalez MD 07/16/19 1007 [id number] 1044 Eleno Gonzalez MD /nt
== END 2019-07-15 12:00 | disposition home or self-care (01) | DRG 389 ==
LOC: ER 17:56 → 4N 19:58 → 4W 19:58 → EROBS 19:58 → 4W 20:42 → 4N 07-11 17:32
PROVIDERS: Emergency Medicine; Internal Medicine Geriatric Medicine; ADMIT Internal Medicine
PROC: 3E023BZ Introduction of Anesthetic Agent into Muscle, Percutaneous Approach (ICD-10-PCS; principal; 2019-07-08)
PROC: 3E0233Z Introduction of Anti-inflammatory into Muscle, Percutaneous Approach (ICD-10-PCS; principal; 2019-07-08)
DX: K56.600 Partial intestinal obstruction, unspecified as to cause (principal); K59.39 Other megacolon; E44.1 Mild protein-calorie malnutrition; F11.20 Opioid dependence, uncomplicated; D68.59 Other primary thrombophilia; D68.2 Hereditary deficiency of other clotting factors; K59.00 Constipation, unspecified; G89.29 Other chronic pain; R10.9 Unspecified abdominal pain; D63.8 Anemia in other chronic diseases classified elsewhere; D50.9 Iron deficiency anemia, unspecified; Z86.711 Personal history of pulmonary embolism; Z90.49 Acquired absence of other specified parts of digestive tract; Z88.8 Allergy status to other drugs, medicaments and biological substances; Z88.6 Allergy status to analgesic agent; Z91.012 Allergy to eggs; Z79.01 Long term (current) use of anticoagulants; Z68.34 Body mass index [BMI] 34.0-34.9, adult
CPT/HCPCS: 10040; 10045; 10790

== ENCOUNTER 2019-08-06 19:15 | Emergency (ER) | payer OTHER ==
[~2019-08-06] VITALS: Ht 167.6 cm; Wt 95.7 kg
[~2019-08-06 19:15] MED LIST changes: +LACTULOSE20 GM/30 M PO; +MOBIC15 MG PO; +PAXIL CR12.5 MG PO
[2019-08-06 19:36] LABS: URINE BILIRUBIN NEGATIVE (Negative); URINE BLOOD 2+ (Negative); URINE CLARITY CLEAR; URINE COLOR YELLOW; URINE GLUCOSE-RANDOM* NEGATIVE (Negative); URINE KETONES TRACE (Negative); URINE LEUKOCYTES-REFLEX NEGATIVE (Negative); URINE NITRITE-REFLEX NEGATIVE (Negative); URINE PROTEIN (DIPSTICK) NEGATIVE (Negative); URINE SPECIFIC GRAVITY 1.015 (1.005-1.035)
[2019-08-06 20:09] LABS: HEMOGLOBIN 12.4 gm/dL (12.0-15.0); MCH 27.5 pg (26.0-34.0); MCHC 32.6 g/dL (28.0-37.0); MCV 84.4 fL (80.0-100.0); PLATELET COUNT 214 thou/uL (150-400); RDW 26.8 % (10.5-14.5); WBC 3.2 thou/uL (4.0-11.0)
[2019-08-06 20:18] LABS: BACTERIA-REFLEX None Seen /HPF (None Seen); CASTS None Seen /LPF (None Seen); CRYSTALS None Seen /LPF (None Seen); SQUAMOUS 0-3 Few /LPF (0-3); URINE RBC 3-10 Few /HPF (0-2); URINE WBC-REFLEX 0-5 Rare /HPF (0-5)
[2019-08-06 20:22] LABS: CALCIUM 8.5 mg/dL (8.5-10.1); CREATININE 0.9 mg/dL (0.6-1.0); POTASSIUM 3.5 mmol/L (3.5-5.1)
[2019-08-06 20:27] LABS: ALBUMIN 3.3 g/dL (3.4-5.0); TOTAL BILIRUBIN 0.4 mg/dL (<0.1-1.0); TOTAL PROTEIN 6.9 g/dL (6.4-8.2)
[2019-08-06 20:35] LABS: ABSOLUTE NEUTROPHILS 1.8 thou/uL (1.4-8.2); ANISOCYTOSIS 1+
[2019-08-06] MEDS ORDERED: ZOFRAN ODT4 MG PO (20:54)
[2019-08-06 21:38] VITALS: BP 113/68
== END 2019-08-06 21:20 | disposition home or self-care (01) ==
LOC: ER 19:15
PROVIDERS: Physician Assistant
DX: R11.2 Nausea with vomiting, unspecified (principal); R10.32 Left lower quadrant pain; G89.29 Other chronic pain; Z98.890 Other specified postprocedural states; Z86.711 Personal history of pulmonary embolism; Z90.49 Acquired absence of other specified parts of digestive tract; Z79.899 Other long term (current) drug therapy; Z88.5 Allergy status to narcotic agent; Z91.012 Allergy to eggs; Z88.1 Allergy status to other antibiotic agents; Z88.8 Allergy status to other drugs, medicaments and biological substances; Z88.6 Allergy status to analgesic agent

== ENCOUNTER 2019-08-14 10:43 | Inpatient (IN) | payer OTHER ==
[~2019-08-14] VITALS: Ht 167.6 cm; Wt 95.7 kg
[2019-08-14 10:43] VITALS: BP 147/99
[2019-08-14 11:08] LABS: HEMATOCRIT 45.4 % (37.0-47.0); HEMOGLOBIN 14.3 gm/dL (12.0-15.0); MCH 28.5 pg (26.0-34.0); MCHC 31.6 g/dL (28.0-37.0); MCV 90.3 fL (80.0-100.0); PLATELET COUNT 214 thou/uL (150-400); RBC 5.03 mil/uL (4.20-5.00); RDW 26.3 % (10.5-14.5); WBC 3.9 thou/uL (4.0-11.0)
[2019-08-14 11:18] LABS: CREATININE 0.8 mg/dL (0.6-1.0)
[2019-08-14 11:20] LABS: POTASSIUM 3.9 mmol/L (3.5-5.1)
[2019-08-14 11:25] LABS: ALBUMIN 3.2 g/dL (3.4-5.0); TOTAL BILIRUBIN 0.6 mg/dL (<0.1-1.0); TOTAL PROTEIN 7.5 g/dL (6.4-8.2)
[2019-08-14 11:50] LABS: ABSOLUTE NEUTROPHILS 2.6 thou/uL (1.4-8.2); MACROCYTES 1+; MICROCYTES 1+
[2019-08-14 11:51] LABS: ANISOCYTOSIS 2+; TARGET CELLS FEW
[2019-08-14 12:06] LABS: URINE BILIRUBIN NEGATIVE (Negative); URINE BLOOD NEGATIVE (Negative); URINE CLARITY CLEAR; URINE COLOR YELLOW; URINE GLUCOSE-RANDOM* NEGATIVE (Negative); URINE KETONES NEGATIVE (Negative); URINE LEUKOCYTES-REFLEX NEGATIVE (Negative); URINE NITRITE-REFLEX NEGATIVE (Negative); URINE PROTEIN (DIPSTICK) NEGATIVE (Negative); URINE UROBILINOGEN 0.2 E.U./dl (0.2-1.0)
[2019-08-14 12:15] LABS: SSA (PROTEIN CONFIRMATORY) NEGATIVE (Negative)
[2019-08-14 16:00] VITALS: BP 126/84
[2019-08-14 16:20] VITALS: BP 130/82
[2019-08-14 16:50] VITALS: BP 126/84
[2019-08-14 17:49] LABS: ALBUMIN 3.6 g/dL (3.4-5.0); TOTAL PROTEIN 7.4 g/dL (6.4-8.2)
[2019-08-14 18:24] LABS: TSH 0.466 uIU/mL (0.358-3.740)
--- NOTE | 2019-08-14 19:35 | NUR ---
48 YO FEMALED ADMITTED FROM ER TO 439. A&OX4. AMBULATES SELF IN ROOM. C/O ABD PAIN SHORTLY AFTER ARRIVING IN HER ROOM. IV INTACT IN R UA. CT OF ABD/PELVIC ORDERED BUT PT ANABLE TO TOLERATE PO CONTRAST SO IT WAS ORDERED IV AND COMPLETED. SURGERY TO CONSULT. DR. BANERJEE RETURNED CALL AND INFORMED ME THAT PT HAD BEEN FIRED FOR CARE. DR. MAYNARD WAS NOTIFIED. ORIENTED PT TO ROOM/ CALL LIGHT. NPO AT THIS TIME.
[2019-08-14 20:13] VITALS: BP 122/90
--- NOTE | 2019-08-14 23:07 | NUR ---
ASSUMED PT CARE AT APPROX 1900.PT C/O PAIN/JENNIFER IMMEDIATELY AFTER SHIFT CHANGE ,MANAGED WITH MED.PT CALLED OUT TWO HOURS LATER C/O PAIN AGAIN,IV PAIN MED ADMINISTERED.PT UP ADLIB IN THE ROOM.NPO AT THIS TIME,PT AWARE.PT RESTING ON HER BED AT THIS TIME.CALL LIGHT WITHIN REACH.PT CARE TAKEN OVER BY SONIA AT APPROX 2250.
--- NOTE | 2019-08-14 23:47 | NUR ---
ASSUMED CARE OF PT AT 2230, PT RESTING IN BED, ASSESSMENT COMPLETED, PY WITH C/O NAUSEA VOMITING AND ABD PAIN FOR SEVERAL DAYS. PT STATES PAIN IS CONSTANT AND 8/10 WITH NO RELIEF FROM PAIN MEDS, NO OBVIOUS SIGNS OF PAIN. PT TALKING AND SMILING DURING ASSESSMENT.
[2019-08-15 03:44] VITALS: BP 115/70
[2019-08-15 05:15] LABS: CALCIUM 8.7 mg/dL (8.5-10.1); CREATININE 0.8 mg/dL (0.6-1.0); MAGNESIUM 2.1 mg/dL (1.8-2.4); POTASSIUM 3.4 mmol/L (3.5-5.1)
[2019-08-15 06:45] LABS: HEMATOCRIT 37.9 % (37.0-47.0); MCH 28.4 pg (26.0-34.0); MCHC 32.4 g/dL (28.0-37.0); MCV 87.4 fL (80.0-100.0); RBC 4.33 mil/uL (4.20-5.00); WBC 3.3 thou/uL (4.0-11.0)
[2019-08-15 06:49] LABS: HEMOGLOBIN 12.3 gm/dL (12.0-15.0)
[2019-08-15 08:10] VITALS: BP 116/68
[2019-08-15] MEDS ORDERED: PANTOPRAZOLE SO20 MG PO (11:53)
--- NOTE | 2019-08-15 17:14 | NUR ---
PT ASSESSED AT START OF SHIFT. PT CONTINUES TO HAVE RT UPPER ABD PAIN. NAUSEA BETTER. STARTED TAKING SOUPS AND KEPT DOWN W/ IV ZOFRAN. TRYING TO TAKE IV MED SPARINGLY. AMBULATED IN THE HALLS SEVERAL TIMES.
[2019-08-15 17:17] VITALS: BP 115/68
[2019-08-15 19:09] VITALS: BP 117/75
[2019-08-16 04:09] LABS: WBC 3.5 thou/uL (4.0-11.0)
[2019-08-16 04:12] LABS: HEMATOCRIT 37.1 % (37.0-47.0); HEMOGLOBIN 12.3 gm/dL (12.0-15.0); MCH 29.1 pg (26.0-34.0); MCHC 33.1 g/dL (28.0-37.0); RBC 4.22 mil/uL (4.20-5.00)
[2019-08-16 04:20] LABS: CALCIUM 8.3 mg/dL (8.5-10.1); CREATININE 0.8 mg/dL (0.6-1.0); MAGNESIUM 2.3 mg/dL (1.8-2.4); POTASSIUM 3.5 mmol/L (3.5-5.1)
--- NOTE | 2019-08-16 05:27 | NUR ---
ASSUMED PT CARE AROUND 193. AXOX4. INDEPENDENT WITH ADLs. PAIN MANAGED PER MD ORDER. NO S/S ACUTE DISTRESS NOTED OR REPORTED AT THIS TIME. WILL CONT TO MONITOR FOR ANY CHANGES IN CONDITION.
[2019-08-16 07:29] VITALS: BP 101/69
[2019-08-16 11:20] VITALS: BP 93/56
--- NOTE | 2019-08-16 14:33 | NUR ---
PT CARE ASSUMED AT 0700. A&Ox4. PT IS UP AT BABS IN THE ROOM WITH TROY WOMACK. PT HAS SEEN DR. LOGAN TODAY TO SPEAK ABOUT HAVING HER MESH REMOVED AND WOULD LIKE A SECOND OPINION BECAUSE DR. LOGAN "SAIDNO". PRN PAIN MEDICATION ON BOARD THAT PT REQUESTS EVERY 4 HOURS ON THE DOT. NO NAUSEA NOTED ON MY SHIFT. CALL LIGHT IN REACH. WILL CONTINUE TO MONITOR.
--- NOTE | 2019-08-16 14:56 | NUR ---
PT ADMITTED RELATED TO UTI AND AMS. PT IS FAMILIAR TO CM FROM MULTIPAL PREVIOUS ADMISSIONS. PT WAS LAST HERE 07/07/19-07/15/19 FOR ABD PAIN AND DISCHARGED HOME WITH NO NEEDS. CM REVIEWED CHART AND SPOKE WITH CARE TEAM. PT IS A&O X4. SHE LIVES IN A DUPLEX ALONE WITH NO STEPS TO ENTER AND NO STEPS INSIDE. PT HAD BEEN INDEPENDENET WITH GA[employer] AND [employer]CU[employer]INE[employer]. PT INDICATED NO DME. PT HAD BEEN ON SERVICE WITH [facility] IN THE PAST AND [facility]. IT IS ANTICPATED THAT SHE WILL RETURN HOME WITH NO NEEDS ONCE MEDICALLY STABLE. CM TO FOLLOW INDICATED WITH DC PLANNING.
[2019-08-16 19:30] VITALS: BP 137/91
--- NOTE | 2019-08-17 04:43 | NUR ---
RECIEVED CARE OF THIS PATIENT AT 1930. PATIENT ALERT AND ORIENTED X4. PATIENT UP IN ROOM. IV IN NAIMA. C/O PAIN, MED GIVEN. C/O NAUSEA, MED GIVEN. SLEPT OFF AND ON DURING NIGHT.
[2019-08-17 04:45] VITALS: BP 114/79
[2019-08-17 05:56] LABS: HEMOGLOBIN 12.7 gm/dL (12.0-15.0); MCH 28.5 pg (26.0-34.0); MCHC 32.5 g/dL (28.0-37.0); MCV 87.6 fL (80.0-100.0); RBC 4.45 mil/uL (4.20-5.00); RDW 25.8 % (10.5-14.5); WBC 3.6 thou/uL (4.0-11.0)
[2019-08-17 06:15] LABS: CALCIUM 8.4 mg/dL (8.5-10.1); CREATININE 0.9 mg/dL (0.6-1.0); MAGNESIUM 2.5 mg/dL (1.8-2.4)
[2019-08-17 07:46] VITALS: BP 107/68
[2019-08-17] MEDS ORDERED: VITAMIN B-121000 MC2 SUBLING (10:01)
[2019-08-17 12:14] VITALS: BP 107/68
--- NOTE | 2019-08-17 12:24 | NUR ---
Assumed pt care at 7am.Pt in bed resting and waited for breakfast.Assessment completed.vss.pt c/o abdominal pain rated 10.Prn meds given with relief. Dr Erickson here,dc order noted.Dc summary completed and reviewed with pt. Copy given after signing by the pt.Will dc home at 1330 per pt request.
--- NOTE | 2019-08-17 13:22 | NUR ---
CARE TEAM INDICATED THAT PT IS MEDICALLY STABLE TO DISCHARGE HOME THIS DAY. PT IS TO DC HOME TO SELF CARE. NO OTHER CM INTERVENTION INDICATED. CASE CLOSED.
== END 2019-08-17 13:32 | disposition home or self-care (01) | DRG 389 ==
LOC: ER 10:43 → EROBS 16:26 → 4S 16:26 → EROBS 16:32 → 4S 16:42
PROVIDERS: Emergency Medicine; Internal Medicine; ADMIT Hospitalist
DX: K56.600 Partial intestinal obstruction, unspecified as to cause (principal); E46 Unspecified protein-calorie malnutrition; E66.9 Obesity, unspecified; G89.29 Other chronic pain; Z90.89 Acquired absence of other organs; Z90.49 Acquired absence of other specified parts of digestive tract; Z79.891 Long term (current) use of opiate analgesic; Z79.899 Other long term (current) drug therapy; Z88.5 Allergy status to narcotic agent; Z88.8 Allergy status to other drugs, medicaments and biological substances; Z88.1 Allergy status to other antibiotic agents; Z91.012 Allergy to eggs; Z86.711 Personal history of pulmonary embolism; Z79.01 Long term (current) use of anticoagulants; Z95.828 Presence of other vascular implants and grafts; Z98.84 Bariatric surgery status; Z82.49 Family history of ischemic heart disease and other diseases of the circulatory system; Z83.3 Family history of diabetes mellitus; Z68.34 Body mass index [BMI] 34.0-34.9, adult; Z76.5 Malingerer [conscious simulation]
CPT/HCPCS: 10195

== ENCOUNTER 2019-09-15 08:29 | Emergency (ER) | payer OTHER ==
[~2019-09-15] VITALS: Ht 167.6 cm; Wt 95.3 kg
[~2019-09-15 08:29] MED LIST changes: +PANTOPRAZOLE SO20 MG PO; +VITAMIN B-121000 MC2 SUBLING
[2019-09-15 09:43] VITALS: BP 144/84
== END 2019-09-15 09:43 | disposition home or self-care (01) ==
LOC: ER 08:29
DX: R11.2 Nausea with vomiting, unspecified (principal); R10.84 Generalized abdominal pain; Z98.890 Other specified postprocedural states; Z90.49 Acquired absence of other specified parts of digestive tract; Z86.711 Personal history of pulmonary embolism; Z91.018 Allergy to other foods; Z88.1 Allergy status to other antibiotic agents; Z88.6 Allergy status to analgesic agent; Z88.8 Allergy status to other drugs, medicaments and biological substances

== ENCOUNTER 2019-09-17 20:16 | Emergency (ER) | payer OTHER ==
[~2019-09-17] VITALS: Ht 167.6 cm; Wt 95.3 kg
[2019-09-17 20:37] LABS: URINE BILIRUBIN NEGATIVE (Negative); URINE BLOOD NEGATIVE (Negative); URINE CLARITY CLEAR; URINE COLOR YELLOW; URINE GLUCOSE-RANDOM* NEGATIVE (Negative); URINE KETONES NEGATIVE (Negative); URINE LEUKOCYTES-REFLEX NEGATIVE (Negative); URINE NITRITE-REFLEX NEGATIVE (Negative); URINE PROTEIN (DIPSTICK) NEGATIVE (Negative); URINE SPECIFIC GRAVITY <= 1.005 (1.005-1.035)
[2019-09-17 21:23] LABS: ABSOLUTE NEUTROPHILS 1.9 thou/uL (1.4-8.2); BASOPHILS 0.7 % (0.0-2.0); EOSINOPHILS 8.2 % (0.0-3.0); HEMATOCRIT 35.8 % (37.0-47.0); HEMOGLOBIN 11.9 gm/dL (12.0-15.0); LYMPHOCYTES 33.9 % (24.0-44.0); MCH 30.2 pg (26.0-34.0); MCHC 33.2 g/dL (28.0-37.0); MCV 91.1 fL (80.0-100.0); MONOCYTES 8.6 % (1.0-8.0); PLATELET COUNT 252 thou/uL (150-400); POLYS 48.6 % (36.0-66.0); RBC 3.93 mil/uL (4.20-5.00)
[2019-09-17 21:33] LABS: ANION GAP 8 mmol/L (7-16); BUN 8 mg/dL (7-18); CALCIUM 8.1 mg/dL (8.5-10.1); CHLORIDE 108 mmol/L (98-107); CO2 28 mmol/L (21-32); CREATININE 0.8 mg/dL (0.6-1.0); GLUCOSE 96 mg/dL (74-106); POTASSIUM 3.4 mmol/L (3.5-5.1); SODIUM 144 mmol/L (136-145)
[2019-09-17 21:44] LABS: LIPASE 39 U/L (73-393); SGOT 27 U/L (15-37); SGPT 30 U/L (30-65); TOTAL BILIRUBIN 0.5 mg/dL (<0.1-1.0); TOTAL PROTEIN 6.5 g/dL (6.4-8.2); TROPONIN-I <0.06 ng/mL (<0.06)
[2019-09-17 22:22] VITALS: BP 133/84
[2019-09-17 22:36] LABS: ANISOCYTOSIS 2+; POLYCHROMASIA OCCASIONAL
--- NOTE | 2019-09-18 11:01 | EKG ---
[facility] [place] [address] ELECTROCARDIOGRAM REPORT Name: YING PARISI Room #: DEP [facility]#: [id number] Admission: 09/17/19 Attend Phys: Discharge: 09/17/19 Date of : 72 Report #: [id number] THIS REPORT FOR: cc: Kj Meneses MD, Christopher B. MD Park, Jin S. 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
== END 2019-09-17 22:24 | disposition home or self-care (01) ==
LOC: ER 20:16
PROVIDERS: Emergency Medicine
DX: R10.11 Right upper quadrant pain (principal); G89.29 Other chronic pain; E66.8 Other obesity; Z68.33 Body mass index [BMI] 33.0-33.9, adult; Z98.890 Other specified postprocedural states; Z90.49 Acquired absence of other specified parts of digestive tract; Z76.5 Malingerer [conscious simulation]

== ENCOUNTER 2019-09-19 14:29 | Emergency (ER) | payer OTHER ==
[~2019-09-19] VITALS: Ht 167.6 cm; Wt 95.3 kg
[2019-09-19 15:37] LABS: HEMATOCRIT 37.4 % (37.0-47.0); HEMOGLOBIN 12.5 gm/dL (12.0-15.0); MCH 30.1 pg (26.0-34.0); MCHC 33.5 g/dL (28.0-37.0); MCV 89.9 fL (80.0-100.0); PLATELET COUNT 276 thou/uL (150-400); RBC 4.16 mil/uL (4.20-5.00); RDW 18.9 % (10.5-14.5); WBC 5.6 thou/uL (4.0-11.0)
[2019-09-19 15:52] LABS: ALBUMIN 3.4 g/dL (3.4-5.0); CREATININE 0.9 mg/dL (0.6-1.0); POTASSIUM 3.2 mmol/L (3.5-5.1); TOTAL PROTEIN 7.4 g/dL (6.4-8.2)
[2019-09-19 16:06] LABS: ABSOLUTE NEUTROPHILS 3.9 thou/uL (1.4-8.2); ANISOCYTOSIS 2+
[2019-09-19 16:08] LABS: LARGE PLATELETS OCCASIONAL; POLYCHROMASIA OCCASIONAL
[2019-09-19 16:11] LABS: CALCIUM 8.2 mg/dL (8.5-10.1)
[2019-09-19] MEDS ORDERED: PROMS25 WY RECTAL (17:03)
[2019-09-19 17:27] VITALS: BP 134/91
== END 2019-09-19 17:36 | disposition home or self-care (01) ==
LOC: ER 14:29
PROVIDERS: Nurse Practitioner Family
DX: T81.30XA Disruption of wound, unspecified, initial encounter (principal); R10.9 Unspecified abdominal pain; R11.0 Nausea; G89.29 Other chronic pain; Y92.89 Other specified places as the place of occurrence of the external cause; Y83.8 Other surgical procedures as the cause of abnormal reaction of the patient, or of later complication, without mention of misadventure at the time of the procedure

== ENCOUNTER 2020-04-16 02:41 | Emergency (ER) | payer OTHER ==
[~2020-04-16] VITALS: Ht 167.6 cm; Wt 91.2 kg
[~2020-04-16 02:41] MED LIST changes: +PROMS25 WY RECTAL
[2020-04-16 04:38] LABS: URINE BLOOD 1+ (Negative); URINE CLARITY CLOUDY; URINE COLOR YELLOW; URINE GLUCOSE-RANDOM* NEGATIVE (Negative); URINE KETONES 1+ (Negative); URINE NITRITE-REFLEX NEGATIVE (Negative); URINE PROTEIN (DIPSTICK) TRACE (Negative)
[2020-04-16 04:41] LABS: ICTOTEST (BILI CONFIRMATORY) Negative (Negative); URINE BILIRUBIN NEGATIVE (Negative); URINE LEUKOCYTES-REFLEX 1+ (Negative)
[2020-04-16 04:42] LABS: ABSOLUTE NEUTROPHILS 3.1 thou/uL (1.4-8.2); BASOPHILS 0.8 % (0.0-2.0); EOSINOPHILS 2.3 % (0.0-3.0); HEMATOCRIT 39.6 % (37.0-47.0); HEMOGLOBIN 13.1 gm/dL (12.0-15.0); LYMPHOCYTES 24.7 % (24.0-44.0); MCHC 33.1 g/dL (28.0-37.0); MCV 90.8 fL (80.0-100.0); MONOCYTES 8.4 % (1.0-8.0); PLATELET COUNT 258 thou/uL (150-400); POLYS 63.8 % (36.0-66.0); RBC 4.36 mil/uL (4.20-5.00); RDW 15.2 % (10.5-14.5); WBC 4.9 thou/uL (4.0-11.0)
[2020-04-16 04:50] LABS: ALBUMIN 3.3 g/dL (3.4-5.0); CALCIUM 8.9 mg/dL (8.5-10.1); CREATININE 0.9 mg/dL (0.6-1.0); DIRECT BILIRUBIN 0.1 mg/dL (<0.1-0.2); TOTAL BILIRUBIN 0.7 mg/dL (0.2-1.0); TOTAL PROTEIN 7.2 g/dL (6.4-8.2)
[2020-04-16 04:51] LABS: POTASSIUM 2.8 mmol/L (3.5-5.1)
[2020-04-16 04:57] LABS: MUCUS 0-3 Light strn/LPF (None Seen); SQUAMOUS 0-3 Few /LPF (0-3)
[2020-04-16 04:58] LABS: BACTERIA-REFLEX >30 Many /HPF (None Seen); CRYSTALS None Seen /LPF (None Seen); URINE RBC 3-10 Few /HPF (0-2); URINE WBC-REFLEX 6-15 Few /HPF (0-5)
[2020-04-16] MEDS ORDERED: ZOFRAN ODT4 MG PO (05:51)
[2020-04-16] MEDS ORDERED: KEFLEX500 M2 PO (06:13)
[2020-04-16 06:17] VITALS: BP 140/108
== END 2020-04-16 06:10 | disposition home or self-care (01) ==
LOC: ER 02:41
PROVIDERS: Emergency Medicine
DX: N39.0 Urinary tract infection, site not specified (principal); E87.6 Hypokalemia; Z90.49 Acquired absence of other specified parts of digestive tract; Z88.6 Allergy status to analgesic agent; Z91.012 Allergy to eggs; Z88.1 Allergy status to other antibiotic agents

== ENCOUNTER 2020-06-04 23:55 | Emergency (ER) | payer OTHER ==
[~2020-06-04] VITALS: Ht 167.6 cm; Wt 95.7 kg
[~2020-06-04 23:55] MED LIST changes: +KEFLEX500 M2 PO
[2020-06-05 00:16] LABS: ABSOLUTE NEUTROPHILS 2.6 thou/uL (1.4-8.2); BASOPHILS 0.8 % (0.0-2.0); EOSINOPHILS 5.2 % (0.0-3.0); HEMATOCRIT 38.9 % (37.0-47.0); HEMOGLOBIN 12.7 gm/dL (12.0-15.0); LYMPHOCYTES 32.7 % (24.0-44.0); MCH 29.2 pg (26.0-34.0); MCHC 32.6 g/dL (28.0-37.0); MCV 89.7 fL (80.0-100.0); MONOCYTES 8.9 % (1.0-8.0); PLATELET COUNT 223 thou/uL (150-400); POLYS 52.4 % (36.0-66.0); RBC 4.34 mil/uL (4.20-5.00); RDW 14.7 % (10.5-14.5); WBC 4.9 thou/uL (4.0-11.0)
[2020-06-05 00:20] LABS: CREATININE 1.2 mg/dL (0.6-1.0); POTASSIUM 3.3 mmol/L (3.5-5.1)
[2020-06-05 00:26] LABS: ALBUMIN 3.5 g/dL (3.4-5.0); PROTIME 10.3 Seconds (9.3-11.4); TOTAL BILIRUBIN 0.5 mg/dL (0.2-1.0); TOTAL PROTEIN 6.8 g/dL (6.4-8.2)
[2020-06-05 01:58] VITALS: BP 122/88
== END 2020-06-05 02:10 | disposition home or self-care (01) ==
LOC: ER 23:55
PROVIDERS: Emergency Medicine
DX: S70.12XA Contusion of left thigh, initial encounter (principal); S89.92XA Unspecified injury of left lower leg, initial encounter; S09.90XA Unspecified injury of head, initial encounter; Z90.49 Acquired absence of other specified parts of digestive tract; Z79.899 Other long term (current) drug therapy; Z88.1 Allergy status to other antibiotic agents; Z88.5 Allergy status to narcotic agent; Z88.8 Allergy status to other drugs, medicaments and biological substances; Z91.012 Allergy to eggs; V03.99XA Pedestrian with other conveyance injured in collision with car, pick-up truck or van, unspecified whether traffic or nontraffic accident, initial encounter; Y93.89 Activity, other specified; Y92.89 Other specified places as the place of occurrence of the external cause; Y99.8 Other external cause status

== ENCOUNTER 2020-06-12 17:35 | Emergency (ER) | payer OTHER ==
[~2020-06-12] VITALS: Ht 167.6 cm; Wt 91.6 kg
[2020-06-12] MEDS ORDERED: ZOFRAN ODT4 MG PO (18:28)
[2020-06-12 18:40] VITALS: BP 142/75
== END 2020-06-12 18:40 | disposition home or self-care (01) ==
LOC: ER 17:35
DX: S80.02XA Contusion of left knee, initial encounter (principal); S70.12XA Contusion of left thigh, initial encounter; Z79.899 Other long term (current) drug therapy; Z88.5 Allergy status to narcotic agent; Z88.1 Allergy status to other antibiotic agents; Z88.8 Allergy status to other drugs, medicaments and biological substances; Z91.012 Allergy to eggs; X50.1XXA Overexertion from prolonged static or awkward postures, initial encounter; Y93.89 Activity, other specified; Y92.89 Other specified places as the place of occurrence of the external cause; Y99.8 Other external cause status

== ENCOUNTER 2020-06-29 17:17 | Emergency (ER) | payer OTHER ==
[~2020-06-29] VITALS: Ht 167.6 cm; Wt 95.7 kg
[2020-06-29 19:27] LABS: ABSOLUTE NEUTROPHILS 2.9 thou/uL (1.4-8.2); BASOPHILS 0.6 % (0.0-2.0); EOSINOPHILS 1.7 % (0.0-3.0); HEMATOCRIT 35.8 % (37.0-47.0); LYMPHOCYTES 27.9 % (24.0-44.0); MCH 29.1 pg (26.0-34.0); MCHC 33.6 g/dL (28.0-37.0); MCV 86.7 fL (80.0-100.0); MONOCYTES 8.9 % (1.0-8.0); PLATELET COUNT 239 thou/uL (150-400); POLYS 60.9 % (36.0-66.0); RBC 4.12 mil/uL (4.20-5.00); RDW 14.9 % (10.5-14.5); WBC 4.7 thou/uL (4.0-11.0)
[2020-06-29 20:00] LABS: CALCIUM 8.7 mg/dL (8.5-10.1); CREATININE 0.8 mg/dL (0.6-1.0); POTASSIUM 3.5 mmol/L (3.5-5.1)
[2020-06-29] MEDS ORDERED: DOXYCYCLINE 10100 MG PO (21:30)
[2020-06-29 21:38] VITALS: BP 168/112
== END 2020-06-29 21:39 | disposition home or self-care (01) ==
LOC: ER 17:17
PROVIDERS: Emergency Medicine
DX: S31.109A Unspecified open wound of abdominal wall, unspecified quadrant without penetration into peritoneal cavity, initial encounter (principal); Z90.49 Acquired absence of other specified parts of digestive tract; Z79.899 Other long term (current) drug therapy; Z88.5 Allergy status to narcotic agent; Z88.1 Allergy status to other antibiotic agents; Z88.8 Allergy status to other drugs, medicaments and biological substances; Z91.012 Allergy to eggs; X58.XXXA Exposure to other specified factors, initial encounter; Y93.89 Activity, other specified; Y92.89 Other specified places as the place of occurrence of the external cause; Y99.8 Other external cause status

== ENCOUNTER 2020-07-07 10:21 | Emergency (ER) | payer OTHER ==
[~2020-07-07] VITALS: Ht 167.6 cm; Wt 95.7 kg
[~2020-07-07 10:21] MED LIST changes: +DOXYCYCLINE 10100 MG PO
[2020-07-07 10:53] LABS: HEMOGLOBIN 12.3 gm/dL (12.0-15.0); MCH 29.4 pg (26.0-34.0); MCHC 33.3 g/dL (28.0-37.0); MCV 88.4 fL (80.0-100.0); RBC 4.18 mil/uL (4.20-5.00); RDW 15.9 % (10.5-14.5); WBC 4.3 thou/uL (4.0-11.0)
[2020-07-07 11:00] LABS: CALCIUM 8.9 mg/dL (8.5-10.1); CREATININE 0.8 mg/dL (0.6-1.0); POTASSIUM 3.6 mmol/L (3.5-5.1)
[2020-07-07 11:06] LABS: ALBUMIN 3.2 g/dL (3.4-5.0); TOTAL BILIRUBIN 0.5 mg/dL (0.2-1.0); TOTAL PROTEIN 7.2 g/dL (6.4-8.2)
[2020-07-07 11:28] LABS: URINE BILIRUBIN NEGATIVE (Negative); URINE BLOOD NEGATIVE (Negative); URINE CLARITY CLEAR; URINE COLOR YELLOW; URINE GLUCOSE-RANDOM* NEGATIVE (Negative); URINE KETONES NEGATIVE (Negative); URINE LEUKOCYTES-REFLEX NEGATIVE (Negative); URINE NITRITE-REFLEX NEGATIVE (Negative); URINE PROTEIN (DIPSTICK) NEGATIVE (Negative); URINE SPECIFIC GRAVITY 1.015 (1.005-1.035)
[2020-07-07] MEDS ORDERED: ROXICODONE5 MG PO (12:24)
[2020-07-07 12:34] VITALS: BP 140/107
== END 2020-07-07 12:35 | disposition home or self-care (01) ==
LOC: ER 10:21
PROVIDERS: Student in an Organized Health Care Education/Training Program
DX: R10.84 Generalized abdominal pain (principal); Z90.49 Acquired absence of other specified parts of digestive tract; Z79.899 Other long term (current) drug therapy; Z88.1 Allergy status to other antibiotic agents; Z88.5 Allergy status to narcotic agent; Z91.012 Allergy to eggs; Z88.8 Allergy status to other drugs, medicaments and biological substances

== ENCOUNTER 2020-07-08 13:05 | Emergency (ER) | payer OTHER ==
[~2020-07-08] VITALS: Ht 167.6 cm; Wt 95.7 kg
[~2020-07-08 13:05] MED LIST changes: +ROXICODONE5 MG PO
[2020-07-08 13:52] LABS: ABSOLUTE NEUTROPHILS 2.2 thou/uL (1.4-8.2); BASOPHILS 1.1 % (0.0-2.0); EOSINOPHILS 4.2 % (0.0-3.0); HEMATOCRIT 31.6 % (37.0-47.0); HEMOGLOBIN 10.6 gm/dL (12.0-15.0); LYMPHOCYTES 22.4 % (24.0-44.0); MCH 29.6 pg (26.0-34.0); MCHC 33.6 g/dL (28.0-37.0); MCV 88.2 fL (80.0-100.0); MONOCYTES 9.8 % (1.0-8.0); PLATELET COUNT 244 thou/uL (150-400); POLYS 62.5 % (36.0-66.0); RBC 3.59 mil/uL (4.20-5.00); RDW 16.3 % (10.5-14.5); WBC 3.6 thou/uL (4.0-11.0)
[2020-07-08 14:00] LABS: CALCIUM 7.8 mg/dL (8.5-10.1); CREATININE 0.7 mg/dL (0.6-1.0); POTASSIUM 3.6 mmol/L (3.5-5.1)
[2020-07-08 14:23] VITALS: BP 134/86
== END 2020-07-08 14:25 | disposition home or self-care (01) ==
LOC: ER 13:05
PROVIDERS: Emergency Medicine
DX: G89.21 Chronic pain due to trauma (principal); R10.30 Lower abdominal pain, unspecified; F41.9 Anxiety disorder, unspecified; Z90.49 Acquired absence of other specified parts of digestive tract; Z79.899 Other long term (current) drug therapy; Z88.5 Allergy status to narcotic agent; Z88.1 Allergy status to other antibiotic agents; Z88.8 Allergy status to other drugs, medicaments and biological substances; Z91.012 Allergy to eggs

== ENCOUNTER 2020-09-19 11:58 | Emergency (ER) | payer OTHER ==
[~2020-09-19] VITALS: Ht 167.6 cm; Wt 95.3 kg
[2020-09-19 14:46] LABS: BASOPHILS 0.6 % (0.0-2.0); EOSINOPHILS 2.1 % (0.0-3.0); MCH 27.3 pg (26.0-34.0); MCHC 32.5 g/dL (28.0-37.0); MCV 84.1 fL (80.0-100.0); MONOCYTES 8.9 % (1.0-8.0); PLATELET COUNT 248 thou/uL (150-400); POLYS 64.4 % (36.0-66.0); RBC 4.41 mil/uL (4.20-5.00); RDW 17.2 % (10.5-14.5); WBC 4.7 thou/uL (4.0-11.0)
[2020-09-19 14:52] LABS: CALCIUM 9.3 mg/dL (8.5-10.1); CREATININE 0.9 mg/dL (0.6-1.0); POTASSIUM 3.2 mmol/L (3.5-5.1)
[2020-09-19 14:58] LABS: ALBUMIN 3.7 g/dL (3.4-5.0); TOTAL BILIRUBIN 0.4 mg/dL (0.2-1.0); TOTAL PROTEIN 8.1 g/dL (6.4-8.2)
[2020-09-19] MEDS ORDERED: BACTRIM DS TAB1 EAC1 PO (14:58)
[2020-09-19 15:18] VITALS: BP 155/109
== END 2020-09-19 15:19 | disposition home or self-care (01) ==
LOC: ER 11:58
PROVIDERS: Nurse Practitioner Family
DX: G89.18 Other acute postprocedural pain (principal); R10.12 Left upper quadrant pain; L03.311 Cellulitis of abdominal wall; G89.29 Other chronic pain; Z98.890 Other specified postprocedural states; Z90.49 Acquired absence of other specified parts of digestive tract; Z86.711 Personal history of pulmonary embolism; Z98.84 Bariatric surgery status; Z79.899 Other long term (current) drug therapy; Z88.6 Allergy status to analgesic agent; Z88.5 Allergy status to narcotic agent; Z91.011 Allergy to milk products; Z88.8 Allergy status to other drugs, medicaments and biological substances

== ENCOUNTER 2020-10-31 19:10 | Emergency (ER) | payer OTHER ==
[~2020-10-31] VITALS: Ht 167.6 cm; Wt 94.3 kg
[~2020-10-31 19:10] MED LIST changes: +BACTRIM DS TAB1 EAC1 PO
[2020-10-31 22:46] VITALS: BP 148/89
== END 2020-10-31 22:47 | disposition home or self-care (01) ==
LOC: ER 19:10
DX: R11.2 Nausea with vomiting, unspecified (principal); R10.9 Unspecified abdominal pain; Z98.890 Other specified postprocedural states; Z90.49 Acquired absence of other specified parts of digestive tract; Z88.5 Allergy status to narcotic agent; Z91.012 Allergy to eggs; Z88.1 Allergy status to other antibiotic agents